=== PATIENT | female | born 1965 | race Hispanic/Latino ===

== ENCOUNTER 2018-12-03 14:20 | Emergency (ER) | payer OTHER ==
[2018-12-03] MEDS ORDERED: HYDROCODONE/APAP 10/325 TAB ONE (16:46)
--- NOTE | 2018-12-03 16:51 | RAD REPORT ---
EXAM DESCRIPTION: RAD - Shoulder Left 2 View - 12/03/2018 3:00 pm CLINICAL HISTORY: PAIN Fall, pain, trauma. COMPARISON: No comparisons FINDINGS: Lucency is seen in the superolateral aspect of the left humeral head in the region of the greater tuberosity, likely representing a nondisplaced fracture. No dislocation.
--- NOTE | 2018-12-03 17:08 | ER ---
Nurse's Notes [facility] Name: Nikki Jaramillo Age: 53 yrs Sex: Female : 1965 Arrival Date: 12/03/2018 Time: 14:22 Bed 7 Private MD: Out, [facility] Diagnosis: Nondisplaced fracture of greater tuberosity of left humerus Presentation: 12/03 14:24 Presenting complaint: Patient states: i was walking to get a pack of cigarettes and i tw2 tripped over the curb and i went down i tried to stop myself and i feel like it jammed my LEFT shoulder, my LEFT hand is numb and i cant feel anything. Transition of care: patient was not received from another setting of care. Onset of symptoms was December 03, 2018. Risk Assessment: Do you want to hurt yourself or someone else? Patient reports no desire to harm self or others. Initial Sepsis Screen: Does the patient meet any 2 criteria? No. Patient's initial sepsis screen is negative. Does the patient have a suspected source of infection? No. Patient's initial sepsis screen is negative. Care prior to arrival: None. 14:24 Method Of Arrival: Ambulatory tw2 14:24 Acuity: BOBBY 4 tw2 Triage Assessment: 14:25 General: Appears in no apparent distress. slender, unkempt, Behavior is calm, tw2 cooperative, appropriate for age. Pain: Complains of pain in left shoulder, left wrist. Musculoskeletal: Reports numbness in left arm. Injury Description: the fell and tried to catch herself and states "she jammed her shoulder". TRAY SETTER: 14:25 LMP N/A - Post-menopause tw2 Historical: - Allergies: 14:27 No Known Drug Allergies; tw2 - Home Meds: 14:27 metformin 500 mg Oral tab 1 tab 2 tabs PO QAM [Active]; potassium Oral daily [Active]; tw2 - PMHx: 14:27 Asthma; Diabetes - NIDDM; tw2 - PSHx: 14:27 ; Knee surgery; Joint replacement; Shoulder, right; tw2 - Immunization history:: Adult Immunizations. - Social history:: Smoking status: Patient uses tobacco products, smokes one pack cigarettes per day. Patient/guardian denies using alcohol, street drugs, The patient lives with family. - Ebola Screening: : Patient denies travel to an Ebola-affected area in the 21 days before illness onset. - Family history:: not pertinent. Screenin:45 Abuse screen: Denies threats or abuse. Denies injuries from another. Nutritional aj screening: No deficits noted. Tuberculosis screening: No symptoms or risk factors identified. Fall Risk Fall in past 12 months (25 points). Assessment: 14:45 General: Appears in no apparent distress. uncomfortable, obese, Behavior is calm, aj cooperative, appropriate for age, Smells of Body odor. Pain: Complains of pain in anterior aspect of left shoulder and posterior aspect of left shoulder. Neuro: Level of Consciousness is awake, alert, obeys commands, Oriented to person, place, time, situation, Appropriate for age. Respiratory: Airway is patent Respiratory effort is even, unlabored, Respiratory pattern is regular, symmetrical. Derm: Skin is intact, is healthy with good turgor, Skin is pink, warm \\T\\ dry. normal. Musculoskeletal: Reports pain in anterior aspect of left shoulder and posterior aspect of left shoulder. 16:30 Reassessment: Patient appears in no apparent distress at this time. Patient and/or jl7 family updated on plan of care and expected duration. Pain level reassessed. Patient is alert, oriented x 3, equal unlabored respirations, skin warm/dry/pink. Pt requesting pain medication, ERD notified, see MAR for orders. 17:34 Reassessment: Patient appears in no apparent distress at this time. Patient and/or jl7 family updated on plan of care and expected duration. Pain level reassessed. Patient is alert, oriented x 3, equal unlabored respirations, skin warm/dry/pink. Patient states symptoms have improved. 17:36 Reassessment: Patient appears in no apparent distress at this time. No changes from aj previously documented assessment. Patient and/or family updated on plan of care and expected duration. Pain level reassessed. Patient is alert, oriented x 3, equal unlabored respirations, skin warm/dry/pink. Vital Signs: 14:25 BP 135 / 88; Pulse 70; Resp 17; Temp 97.5(O); Pulse Ox 97% on R/A; Weight 148.32 kg tw2 (R); Height 5 ft. 3 in. (160.02 cm); Pain 9/10; 17:36 BP 138 / 75; Pulse 72; Resp 18; Pulse Ox 99% on R/A; aj 14:25 Body Mass Index 57.92 (148.32 kg, 160.02 cm) tw2 ED Course: 14:22 Patient arrived in ED. sb2 14:23 Out, [facility] is Private Physician. sb2 14:25 Triage completed. tw2 14:25 Arm band placed on. tw2 14:40 Rochelle Ma, RN is Primary Nurse. aj 14:41 Michelle Graham MD is Attending Physician. ma2 14:45 Patient has correct armband on for positive identification. Bed in low position. Adult aj w/ patient. 14:58 Patient moved to radiology via wheelchair. jb2 15:00 Shoulder Left (2 View) XRAY In Process Unspecified. EDMS 16:18 EKG done, by life support technician. reviewed by Michelle Graham MD. dt2 17:36 No provider procedures requiring assistance completed. Patient did not have IV access aj during this emergency room visit. Sling applied to left arm. Administered Medications: 16:37 Drug: [place] 10 mg-325 mg 1 tabs Route: PO; jl7 17:34 Follow up: Response: No adverse reaction; Pain is decreased jl7 Outcome: 17:08 Discharge ordered by . ma2 17:36 Discharged to home via wheelchair, with family. aj 17:36 Condition: good 17:36 Discharge instructions given to patient, family, Instructed on discharge instructions, follow up and referral plans. medication usage, Demonstrated understanding of instructions, follow-up care, medications, Prescriptions given X 1. 17:37 Patient left the ED. aj Signatures: Dispatcher [employer] EDMS Rochelle Ma, RN Eddie Patel jb2 Tamara Mendez RN RN tw2 Cosme Hernandez RN RN jl7 Michelle Graham MD MD ma2 Erika Bajwa sb2 Kavitha Fowler dt2
--- NOTE | 2018-12-03 17:08 | EDPHYS ---
Physician Documentation [facility] Name: Nikki Jaramillo Age: 53 yrs Sex: Female : 1965 Arrival Date: 12/03/2018 Time: 14:22 Bed 7 Private MD: Out, of [facility], [facility] ED Physician Michelle Graham HPI: 12/03 14:51 This 53 yrs old Female presents to ER via Ambulatory with complaints of ma2 Shoulder Injury. 14:51 The patient or guardian complains of decreased range of motion, an injury. left ma2 shoulder. Onset: The symptoms/episode began/occurred suddenly, 1 hour(s) ago. Associated signs and symptoms: Pertinent positives: severe pain, Pertinent negatives: chest pain, neck pain, tingling. Severity of symptoms: At their worst the symptoms were moderate, in the emergency department the symptoms are unchanged. AUDIT ANALYST: 14:25 LMP N/A - Post-menopause tw2 Historical: - Allergies: 14:27 No Known Drug Allergies; tw2 - Home Meds: 14:27 metformin 500 mg Oral tab 1 tab 2 tabs PO QAM [Active]; potassium Oral daily [Active]; tw2 - PMHx: 14:27 Asthma; Diabetes - NIDDM; tw2 - PSHx: 14:27 ; Knee surgery; Joint replacement; Shoulder, right; tw2 - Immunization history:: Adult Immunizations. - Social history:: Smoking status: Patient uses tobacco products, smokes one pack cigarettes per day. Patient/guardian denies using alcohol, street drugs, The patient lives with family. - Ebola Screening: : Patient denies travel to an Ebola-affected area in the 21 days before illness onset. - Family history:: not pertinent. ROS: 14:51 Constitutional: Negative for fever, chills, and weight loss, Cardiovascular: Negative ma2 for chest pain, palpitations, and edema, Respiratory: Negative for shortness of breath, cough, wheezing, and pleuritic chest pain, Abdomen/GI: Negative for abdominal pain, nausea, diarrhea, and constipation. 14:51 MS/extremity: Positive for decreased range of motion, pain, Negative for injury or acute deformity, laceration, swelling, warmth. 14:51 Neuro: Positive for Negative for dizziness, headache, seizure activity, syncope. 14:51 All other systems are negative. Exam: 14:51 Constitutional: This is a well developed, well nourished patient who is awake, alert, ma2 and in no acute distress. Neck: Trachea midline, no thyromegaly or masses palpated, and no cervical lymphadenopathy. Supple, full range of motion without nuchal rigidity, or vertebral point tenderness. No Meningismus. Chest/axilla: Normal chest wall appearance and motion. Nontender with no deformity. No lesions are appreciated. Cardiovascular: Regular rate and rhythm with a normal S1 and S2. No gallops, murmurs, or rubs. Normal PMI, no JVD. No pulse deficits. Respiratory: Lungs have equal breath sounds bilaterally, clear to auscultation and percussion. No rales, rhonchi or wheezes noted. No increased work of breathing, no retractions or nasal flaring. Abdomen/GI: Soft, non-tender, with normal bowel sounds. No distension or tympany. No guarding or rebound. No evidence of tenderness throughout. 14:51 Neuro: Awake and alert, GCS 15, oriented to person, place, time, and situation. Cranial nerves II-XII grossly intact. Motor strength 5/5 in all extremities. Sensory grossly intact. Cerebellar exam normal. Normal gait. Psych: Awake, alert, with orientation to person, place and time. Behavior, mood, and affect are within normal limits. 14:51 Musculoskeletal/extremity: ROM: limited active range of motion, left shoulder . Vital Signs: 14:25 BP 135 / 88; Pulse 70; Resp 17; Temp 97.5(O); Pulse Ox 97% on R/A; Weight 148.32 kg tw2 (R); Height 5 ft. 3 in. (160.02 cm); Pain 9/10; 17:36 BP 138 / 75; Pulse 72; Resp 18; Pulse Ox 99% on R/A; aj 14:25 Body Mass Index 57.92 (148.32 kg, 160.02 cm) tw2 MDM: 14:41 Patient medically screened. ma2 14:51 Differential diagnosis: humeral head fracture, glenoid fracture, DJD, tendonitis. ma2 14:54 ED course: declined pain control in er . ma2 17:05 Data reviewed: vital signs, nurses notes, radiologic studies. Counseling: I had a ma2 detailed discussion with the patient and/or guardian regarding: the historical points, exam findings, and any diagnostic results supporting the discharge/admit diagnosis, the presence of at least one elevated blood pressure reading (>120/80) during this emergency department visit. Response to treatment: the patient's symptoms have markedly improved after treatment. ED course: has humar non displaced fracture, no wrist drop on exam will send to ortho outpatient with a sling . 12/03 14:46 Order name: Shoulder Left (2 View) XRAY; Complete Time: 17:03 nm2 12/03 17:08 Order name: Sling; Complete Time: 17:33 [facility] Administered Medications: 16:37 Drug: [place] 10 mg-325 mg 1 tabs Route: PO; 7 17:34 Follow up: Response: No adverse reaction; Pain is decreased 7 Disposition: 12/03/18 17:08 Discharged to Home. Impression: Nondisplaced fracture of greater tuberosity of left humerus. - Condition is Stable. - Discharge Instructions: Humerus Fracture Treated With Immobilization, [id number]. - Prescriptions for Tylenol- Codeine #3 300-30 mg Oral Tablet - take 2 tablet by ORAL route every 6 hours As needed; 30 tablet. - Medication Reconciliation Form, Thank You Letter, Antibiotic Education, Prescription Opioid Use form. - Follow up: Private Physician; When: Today; Reason: Continuance of care. Signatures: Dispatcher [employer] EDRochelle Marr RN RN aj Calderon, Audri, RN RN aa5 Edwin Benton, MATI CORRECTIONAL MAINTENANCE TECHNICIAN pm1 Tamara Mendez RN RN tw2 Cosme Hernandez RN RN jl7 Michelle Graham MD MD ma2 Corrections: (The following items were deleted from the chart) 17:11 17:08 12/03/2018 17:08 Discharged to Home. Impression: 2-part displaced fracture of ma2 surgical neck of left humerus. Condition is Stable. Forms are Medication Reconciliation Form, Thank You Letter, Antibiotic Education, Prescription Opioid Use. Follow up: Private Physician; When: Today; Reason: Continuance of care. [facility] 17:37 17:11 12/03/2018 17:08 Discharged to Home. Impression: Nondisplaced fracture of greater aj tuberosity of left humerus. Condition is Stable. Discharge Instructions: Humerus Fracture Treated With Immobilization, [id number]. Prescriptions for Tylenol-Codeine #3 300-30 mg Oral Tablet - take 2 tablet by ORAL route every 6 hours As needed; 30 tablet. and Forms are Medication Reconciliation Form, Thank You Letter, Antibiotic Education, Prescription Opioid Use. Follow up: Private Physician; When: Today; Reason: Continuance of care. ma2
[2018-12-03 17:57] VITALS: TEMP 97.5
[2018-12-03 17:58] VITALS: BP 138/75; O2SAT 99
--- NOTE | 2018-12-04 06:59 | EKG ---
Test Date: 2018-12-03 Test Time: 16:03:29 Tree Worker: CHERELLE MEASUREMENT RESULTS: Intervals: Rate: 69 UT: 150 QRSD: 78 QT: 410 QTc: 439 [place]: P: 46 UT: 150 QRS: -22 T: 22 INTERPRETIVE STATEMENTS: Normal sinus rhythm nst Abnormal ECG Compared to ECG 12/29/2016 06:10:39 Sinus arrhythmia no longer present ST (T wave) deviation still present Electronically Signed On 12-04-18 06:51:[address]GE by Jose Alfredo Webster
== END 2018-12-03 17:37 | disposition home or self-care (01) ==
LOC: ER 14:20
DX: S42.255A Nondisplaced fracture of greater tuberosity of left humerus, initial encounter for closed fracture (principal); X58.XXXA Exposure to other specified factors, initial encounter; Y93.9 Activity, unspecified; Y92.9 Unspecified place or not applicable; F17.210 Nicotine dependence, cigarettes, uncomplicated
CPT/HCPCS: 93005; 99284

== ENCOUNTER 2019-03-19 18:39 | Emergency (ER) | payer OTHER ==
[2019-03-19] MEDS ORDERED: NA CHLORIDE 0.9% 1,000 ML ONE ×2 (19:28→21:23)
[2019-03-19] MEDS ORDERED: MORPHINE 4 MG/ML SYR ONE (19:28)
[2019-03-19] MEDS ORDERED: ONDANSETRON 4 MG/2 ML VIAL ONE (19:28)
[2019-03-19 19:37] LABS: Absolute Lymphocytes (CBC) 2.4 K/uL (0.7-4.9); Absolute Monocytes 0.8 K/uL (0.1-1.3); Absolute Neutrophil 16.8 K/uL (1.8-8.0); Basophils % 0.5 % (0-1.3); Eosinophils % 0.7 % (0-4.4); Hematocrit 43.2 % (36.0-45.0); Lymphocytes % 11.8 % (15.3-44.8); MPV 8.6 fL (7.6-11.3); Monocytes % 3.9 % (3.3-12.3); RBC Red Blood Cell Count 4.91 M/uL (3.86-4.86)
[2019-03-19 19:52] LABS: Albumin 2.8 g/dL (3.4-5.0); Bilirubin Direct 0.4 mg/dL (0-0.2); Bilirubin Total 2.1 mg/dL (0.2-1.0); Potassium 3.6 mmol/L (3.5-5.1); Protein, Total 6.9 g/dL (6.4-8.2)
[2019-03-19 20:08] LABS: Blood Morphology Comment NOT SEEN (NOT SEEN); Platelet Estimate ADEQ
--- NOTE | 2019-03-19 20:22 | RAD REPORT ---
EXAM DESCRIPTION: CT - Abdomen Pelvis W Contrast - 03/19/2019 8:04 pm CLINICAL HISTORY: Abdominal pain/left lower quadrant pain COMPARISON: none. TECHNIQUE: Computed axial tomography of the abdomen pelvis was obtained. 100 cc Isovue-300 was admin istered intravenously. Oral contrast was not requested which limits evaluation of bowel. All CT scans are performed using dose optimization technique as appropriate and may include automated exposure control or mA/KV adjustment according to patient size. FINDINGS: Liver is mildly enlarged. Fatty infiltration Gallstones. Gallbladder wall does not appear thickened. Spleen, pancreas, adrenal and kidneys appear unremarkable. Diverticulosis. [id number] stranding within the fat of the left pelvis. A few extraluminal ai r bubbles are present. 2 centimeter fluid-filled structure containing air is present within the anter ior left pelvis. IMPRESSION: Moderate to marked sigmoid diverticulitis. A few extraluminal air bubbles indicate a con tained perforation. 2 centimeter fluid collection within the anterior left pelvis contains air. It is uncertain if this r epresents a small abscess or unopacified small bowel.
[2019-03-19] MEDS ORDERED: METRONIDAZOLE 500mg IVPB 500 MG/100 ML BAG IV ONE (20:36)
[2019-03-19] MEDS ORDERED: Levofloxacin500mg IV 500 MG/100 ML BAG IV ONE (20:36)
--- NOTE | 2019-03-19 20:50 | EDPHYS ---
Physician Documentation [facility] Name: Nikki Jaramillo Age: 53 yrs Sex: Female : 1965 Arrival Date: 03/19/2019 Time: 18:42 Bed 30 Private MD: ED Physician Jose Ramon Infante HPI: 03/19 19:30 This 53 yrs old Female presents to ER via Wheelchair with complaints of LLQ pm1 abdominal pain and left flank pain. 19:30 The patient presents with abdominal pain in the left lower quadrant. Onset: The pm1 symptoms/episode began/occurred 2 day(s) ago. The symptoms radiate to the left flank. Associated signs and symptoms: Pertinent positives: dysuria, vomit x 1, diarrhea x 1, Pertinent negatives: blood in stools, chest pain, constipation, shortness of breath, vomiting blood. The symptoms are described as sharp. Modifying factors: The symptoms are alleviated by nothing, the symptoms are aggravated by movement. Severity of pain: in the emergency department the pain is actually worse. The patient has not recently seen a physician. EXPLOSIVES ENGINEER: 20:08 lmp unknown mg2 Historical: - Allergies: 18:45 No Known Allergies; la1 - Home Meds: 19:38 metformin 500 mg Oral tab 1 tab 2 tabs PO QAM [Active]; potassium Oral daily [Active]; mg2 - PMHx: 18:45 Asthma; Diabetes - NIDDM; COPD; Diverticulitis; la1 - PSHx: 19:38 ; mg2 - Immunization history:: Adult Immunizations up to date. - Social history:: Smoking status: Patient uses tobacco products, smokes one pack cigarettes per day. - Ebola Screening: : No symptoms or risks identified at this time. ROS: 19:30 Eyes: Negative for injury, pain, redness, and discharge, ENT: Negative for injury, pm1 pain, and discharge, Neck: Negative for injury, pain, and swelling, Cardiovascular: Negative for chest pain, palpitations, and edema, Respiratory: Negative for shortness of breath, cough, wheezing, and pleuritic chest pain. 19:30 MS/Extremity: Negative for injury and deformity, Skin: Negative for injury, rash, and discoloration, Neuro: Negative for headache, weakness, numbness, tingling, and seizure. 19:30 Constitutional: Positive for subjective fever and chills with sweating. 19:30 Abdomen/GI: Positive for abdominal pain, nausea, vomiting, and diarrhea, of the left lower quadrant, Negative for constipation. 19:30 Back: Positive for flank pain, on the left. 19:30 : Positive for flank pain, decreased urination, Negative for burning with urination. Exam: 19:30 Constitutional: This is a well developed, well nourished patient who is awake, alert, pm1 and in no acute distress. Head/Face: Normocephalic, atraumatic. Eyes: Pupils equal round and reactive to light, extra-ocular motions intact. Lids and lashes normal. Conjunctiva and sclera are non-icteric and not injected. Cornea within normal limits. Periorbital areas with no swelling, redness, or edema. ENT: Nares patent. No nasal discharge, no septal abnormalities noted. Tympanic membranes are normal and external auditory canals are clear. Oropharynx with no redness, swelling, or masses, exudates, or evidence of obstruction, uvula midline. Mucous membranes moist. Neck: Trachea midline, no thyromegaly or masses palpated, and no cervical lymphadenopathy. Supple, full range of motion without nuchal rigidity, or vertebral point tenderness. No Meningismus. Chest/axilla: Normal chest wall appearance and motion. Nontender with no deformity. No lesions are appreciated. Cardiovascular: Regular rate and rhythm with a normal S1 and S2. No gallops, murmurs, or rubs. Normal PMI, no JVD. No pulse deficits. Respiratory: Lungs have equal breath sounds bilaterally, clear to auscultation and percussion. No rales, rhonchi or wheezes noted. No increased work of breathing, no retractions or nasal flaring. 19:30 Back: No spinal tenderness. No costovertebral tenderness. Full range of motion. Skin: Warm, dry with normal turgor. Normal color with no rashes, no lesions, and no evidence of cellulitis. MS/ Extremity: Pulses equal, no cyanosis. Neurovascular intact. Full, normal range of motion. 19:30 Abdomen/GI: Inspection: obese Bowel sounds: normal, Palpation: soft, moderate abdominal tenderness, in the left lower quadrant, mass, is not appreciated, rebound tenderness, is not appreciated. 19:30 Neuro: Orientation: is normal, Motor: is normal, moves all fours, Sensation: is normal, no obvious gross deficits. Vital Signs: 18:48 Pulse 86; Resp 16; Temp 98.6(O); Pulse Ox 94% on R/A; Weight 140.61 kg; Height 5 ft. 4 la1 in. (162.56 cm); Pain 9/10; 18:48 BP 109 / 57; la1 19:30 BP 123 / 67; Pulse 88; Resp 18; Temp 98.5; Pulse Ox 96% 2 lpm ; mg2 21:43 Pulse 89; Resp 18; Temp 98.7; Pulse Ox 95% on R/A; mg2 18:48 Body Mass Index 53.21 (140.61 kg, 162.56 cm) la1 MDM: 18:53 Patient medically screened. pm1 20:44 Data reviewed: vital signs. Data interpreted: Pulse oximetry: on room air is 96 %. pm1 Interpretation: normal. Counseling: I had a detailed discussion with the patient and/or guardian regarding: the historical points, exam findings, and any diagnostic results supporting the discharge/admit diagnosis, lab results, radiology results, the need to transfer to another facility, for higher level of care, [facility] does not immediately have the required specialist. 21:12 Physician consultation: Hospitalist Bertrand was contacted at 21:12, regarding regarding pm1 transfer, patient's condition, and will see patient. 03/19 19:02 Order name: Basic Metabolic Panel; Complete Time: 19:53 pm1 03/19 19:02 Order name: CBC with Diff; Complete Time: 20:15 pm1 03/19 19:02 Order name: Creatinine for Radiology; Complete Time: 19:53 pm1 03/19 19:02 Order name: Hepatic Function; Complete Time: 19:53 pm1 03/19 19:02 Order name: Lipase; Complete Time: 19:53 pm1 03/19 19:41 Order name: Procalcitonin pm1 03/19 19:02 Order name: CT Abd/Pelvis - W/Contrast: IV contrast only; Complete Time: 20:26 pm1 03/19 19:41 Order name: Lactate pm1 03/19 19:41 Order name: Manual Differential; Complete Time: 20:15 EDMS 03/19 19:55 Order name: Blood Culture Adult (2) pm1 03/19 19:55 Order name: Urine Microscopic Only pm1 03/19 19:02 Order name: IV Saline Lock; Complete Time: 19:28 pm1 03/19 19:02 Order name: Labs collected and sent; Complete Time: 19:28 pm1 03/19 19:02 Order name: Bladder Scanner; Complete Time: 19:12 pm1 03/19 20:58 Order name: NPO; Complete Time: 21:14 pm1 Administered Medications: 19:27 Drug: Zofran 4 mg Route: IVP; Site: right forearm; mg2 21:00 Follow up: Response: No adverse reaction; Marked relief of symptoms mg2 19:28 Drug: NS 0.9% 1000 ml Route: IV; Rate: 1000 ml; Site: right forearm; mg2 19:28 Drug: morphine 4 mg Route: IVP; Site: right forearm; mg2 21:14 Drug: NS 0.9% 1000 ml Route: IV; Rate: 125 ml/hr; Site: right forearm; mg2 22:18 Follow up: Response: No adverse reaction; IV Status: Infusion continued upon transfer mg2 21:26 Drug: Flagyl 500 mg Volume: 100 ml; Route: IVPB; Rate: 200 ml/hr; Infused Over: 30 mg2 mins; Site: right forearm; 22:18 Follow up: Response: No adverse reaction; IV Status: Completed infusion mg2 21:46 Drug: LevaQUIN 500 mg Volume: 100 ml; Route: IVPB; Infused Over: 60 mins; Site: right mg2 forearm; 22:19 Follow up: Response: No adverse reaction; IV Status: Infusion continued upon transfer mg2 Disposition: 03/19/19 20:50 Transfer ordered to [facility]. Diagnosis is Diverticulitis of both small and large intestine with perforation and abscess without bleeding. - Reason for transfer: Higher level of care. - Accepting physician is [facility]. - Condition is Stable. - Problem is new. - Symptoms have improved. Signatures: Dispatcher [employer] EDMS Enio Alas RN RN la1 Edwin Benton NP STRATEGIC INSIGHTS LEAD pm1 Kassidy Gibson mw2 Greg Christianson RN RN mg2 Corrections: (The following items were deleted from the chart) 22:20 20:50 03/19/2019 20:50 Transfer ordered to [facility]. Diagnosis is mw2 Diverticulitis of both small and large intestine with perforation and abscess without bleeding. Reason for transfer: Higher level of care. Accepting physician is [facility]. Condition is Stable. Problem is new. Symptoms have improved. pm1
--- NOTE | 2019-03-19 20:50 | ER ---
Nurse's Notes [facility] Name: Nikki Jaramillo Age: 53 yrs Sex: Female : 1965 Arrival Date: 03/19/2019 Time: 18:42 Bed 30 Private MD: Diagnosis: Diverticulitis of both small and large intestine with perforation and abscess without bleeding Presentation: 03/19 18:45 Presenting complaint: Patient states: I have a pain in my left groin area that radiates la1 to my back, pain started on Sunday, also has chills, nausea, vomiting, diarrhea. Transition of care: patient was not received from another setting of care. Onset of symptoms was March 19, 2019. Risk Assessment: Do you want to hurt yourself or someone else? Patient reports no desire to harm self or others. Initial Sepsis Screen: Does the patient meet any 2 criteria? No. Patient's initial sepsis screen is negative. Does the patient have a suspected source of infection? No. Patient's initial sepsis screen is negative. Care prior to arrival: None. 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 - Social history:: Smoking status: Patient uses tobacco products, smokes one pack cigarettes per day. - Ebola Screening: : No symptoms or risks identified at this time. Screenin:32 Abuse screen: Denies threats or abuse. Denies injuries from another. Nutritional mg2 screening: No deficits noted. Tuberculosis screening: No symptoms or risk factors identified. Fall Risk IV access (20 points). Assessment: 19:29 General: Appears in no apparent distress. comfortable, Behavior is calm, cooperative. mg2 Pain: Complains of pain in abdomen Pain does not radiate. Pain currently is 9 out of 10 on a pain scale. Quality of pain is described as aching, Pain began gradually. Neuro: Level of Consciousness is awake, alert, obeys commands, Oriented to person, place, time, situation. Cardiovascular: Capillary refill < 3 seconds Patient's skin is warm and dry. Respiratory: Airway is patent Respiratory effort is even, unlabored, Respiratory pattern is regular, symmetrical. GI: Abdomen is round Reports lower abdominal pain, diarrhea, nausea, vomiting. : Reports inability to void, since sunday urinary dribbling. EENT: No signs and/or symptoms were reported regarding the EENT system. Derm: Skin is intact, is healthy with good turgor, Skin is pink, warm \T\ dry. normal. Musculoskeletal: Circulation, motion, and sensation intact. Capillary refill < 3 seconds. 20:07 Reassessment: patient sent to ct scan per stretcher. mg2 21:14 Reassessment: patient informed about the need for transfer. she agreed. mg2 21:40 Reassessment: report called to Ny Garcia RN of [facility]. transfer form signed mg2 by the patient herself. Vital Signs: 18:48 Pulse 86; Resp 16; Temp 98.6(O); Pulse Ox 94% on R/A; Weight 140.61 kg; Height 5 ft. 4 la1 in. (162.56 cm); Pain 9/10; 18:48 BP 109 / 57; la1 19:30 BP 123 / 67; Pulse 88; Resp 18; Temp 98.5; Pulse Ox 96% 2 lpm ; mg2 21:43 Pulse 89; Resp 18; Temp 98.7; Pulse Ox 95% on R/A; mg2 18:48 Body Mass Index 53.21 (140.61 kg, 162.56 cm) la1 ED Course: 18:42 Patient arrived in ED. mr 18:46 Triage completed. la1 18:46 Arm band placed on right ankle. la1 18:50 Greg Christianson, MICHELA is Primary Nurse. mg2 18:52 Edwin Benton NP is PHCP. pm1 18:53 Jose Ramon Infante MD is Attending Physician. pm1 19:29 Radiology exam delayed due to lab results not completed at this time. (BUN/Creatinine). nj 19:29 Radiology exam delayed due to IV insertion attempt and/or patient not having nj appropriate IV at this time. 19:32 No provider procedures requiring assistance completed. Inserted saline lock: 20 gauge mg2 in right forearm, using aseptic technique. Blood collected. 19:35 Patient has correct armband on for positive identification. Pulse ox on. NIBP on. Door mg2 closed. Warm blanket given. 19:40 Notified Nurse Practitioner and/or Physician Manager Assisted Living of a critical lab result(s), wbc la1 20.2. 20:04 CT Abd/Pelvis - W/Contrast: IV contrast only In Process Unspecified. EDMS 20:04 CT completed. Patient tolerated procedure well. Patient moved to MT. Patient moved back de from MT. 21:07 Inserted saline lock: 22 gauge in left forearm, using aseptic technique. lt1 22:19 Patient transferred, IV remains in place. mg2 Administered Medications: 19:27 Drug: Zofran 4 mg Route: IVP; Site: right forearm; mg2 21:00 Follow up: Response: No adverse reaction; Marked relief of symptoms mg2 19:28 Drug: NS 0.9% 1000 ml Route: IV; Rate: 1000 ml; Site: right forearm; mg2 19:28 Drug: morphine 4 mg Route: IVP; Site: right forearm; mg2 21:14 Drug: NS 0.9% 1000 ml Route: IV; Rate: 125 ml/hr; Site: right forearm; mg2 22:18 Follow up: Response: No adverse reaction; IV Status: Infusion continued upon transfer mg2 21:26 Drug: Flagyl 500 mg Volume: 100 ml; Route: IVPB; Rate: 200 ml/hr; Infused Over: 30 mg2 mins; Site: right forearm; 22:18 Follow up: Response: No adverse reaction; IV Status: Completed infusion mg2 21:46 Drug: LevaQUIN 500 mg Volume: 100 ml; Route: IVPB; Infused Over: 60 mins; Site: right mg2 forearm; 22:19 Follow up: Response: No adverse reaction; IV Status: Infusion continued upon transfer mg2 Outcome: 20:50 ER care complete, transfer ordered by . pm1 22:19 Transferred by ground EMS to [facility], Transfer form completed. mg2 22:19 Condition: stable 22:19 Instructed on the need for transfer, Demonstrated understanding of instructions. 22:20 Patient left the ED. mw2 Signatures: Dispatcher [employer] EDAshley Hernandez Lee RN RN la1 Edwin Benton, HEAD COACH HEAD COACH pm1 Alexis Dow, Kassidy mw2 Greg Christianson, RN RN mg2 Susy, Alexa lt1
[2019-03-20 04:41] VITALS: BP 123/67
[2019-03-20 04:45] VITALS: TEMP 98.7; O2SAT 95
== END 2019-03-19 22:20 | disposition short-term general hospital (02) ==
LOC: ER 18:39
DX: K57.40 Diverticulitis of both small and large intestine with perforation and abscess without bleeding (principal); E11.9 Type 2 diabetes mellitus without complications; F17.210 Nicotine dependence, cigarettes, uncomplicated
CPT/HCPCS: 87040 ×2; 85025; 80048; 36415; 80076; 83605; 83690; 84145; 74177; Q9967; J7030 ×2; J2405

== ENCOUNTER 2019-10-22 15:48 | Inpatient (IN) | payer OTHER ==
--- OUTSIDE RECORDS SUMMARY | 2019-10-22 15:50 | XMS REPORT ---
:1965 [facility] [address] [place] [id number] Care Team Providers Name Role Phone AMILCAR LESLIE Unavailable Unavailable Problems This patient has no known problems. Allergies, Adverse Reactions, Alerts This patient has no known allergies or adverse reactions. Medications This patient has no known medications. Results Test Description Test Time Test Comments Text Results Atomic Results Result Comments BLOOD CULTURE 2019-03-25 08:01:00 Test Item Value Reference Range Comments CULTURE (BEAKER) (test vsbu=1204) No growth in 5 days BLOOD [id number] 08:01:00 Test Item Value Reference Range Comments CULTURE (BEAKER) (test leuh=0165) No growth in 5 days POCT-GLUCOSE [id number] 08:21:00 Test Item Value Reference Range Comments POC-GLUCOSE METER (BEAKER) 193 mg/dL 70-110 TESTED AT [address] (test wdou=7626) [facility] [address] POCT-GLUCOSE [id number] 22:28:00 Test Item Value Reference Range Comments POC-GLUCOSE METER (BEAKER) 134 mg/dL 70-110 TESTED AT [address] (test pkme=9548) [facility] [address] POCT-GLUCOSE [id number] 17:09:00 Test Item Value Reference Range Comments POC-GLUCOSE METER (BEAKER) 109 mg/dL 70-110 TESTED AT [address] (test aupm=0119) [place] [id number] POCT-GLUCOSE [id number] 12:54:00 Test Item Value Reference Range Comments POC-GLUCOSE METER (BEAKER) 98 mg/dL 70-110 TESTED AT [address] (test fyrr=7122) [place] [address] CBC (HEMOGRAM ONLY)2019-03-23 05:37:00 Test Item Value Reference Range Comments WHITE BLOOD CELL COUNT (BEAKER) (test oreb=442) 10.5 K/ L 3.5-10.5 RED BLOOD CELL COUNT (BEAKER) (test nhis=818) 4.26 M/ L 3.93-5.22 HEMOGLOBIN (BEAKER) (test ofou=929) 12.1 GM/DL 11.2-15.7 HEMATOCRIT (BEAKER) (test lnam=828) 38.7 % 34.1-44.9 MEAN CORPUSCULAR VOLUME (BEAKER) (test gpnr=382) 90.8 fL 79.4-94.8 MEAN CORPUSCULAR HEMOGLOBIN (BEAKER) (test 28.4 pg 25.6-32.2 zlbc=685) MEAN CORPUSCULAR HEMOGLOBIN CONC (BEAKER) (test 31.3 GM/DL 32.2-35.5 bkdo=991) RED CELL DISTRIBUTION WIDTH (BEAKER) (test 14.5 % 11.7-14.4 odec=879) PLATELET COUNT (BEAKER) (test llyi=195) 339 K/CU MM 150-450 MEAN PLATELET VOLUME (BEAKER) (test wvun=799) 9.8 fL 9.4-12.3 NUCLEATED RED BLOOD CELLS (BEAKER) (test 0 /100 WBC 0-0 zlou=529) POCT-GLUCOSE [id number] 22:36:00 Test Item Value Reference Range Comments POC-GLUCOSE METER (BEAKER) 102 mg/dL 70-110 TESTED AT [address] (test bmlp=2557) [facility] [address] POCT-GLUCOSE [id number] 18:00:00 Test Item Value Reference Range Comments POC-GLUCOSE METER (BEAKER) 101 mg/dL 70-110 TESTED AT [address] (test cpwa=6637) [facility] [address] POCT-GLUCOSE [id number] 12:35:00 Test Item Value Reference Range Comments POC-GLUCOSE METER (BEAKER) 98 mg/dL 70-110 TESTED AT [address] (test rhnd=5709) [facility] [address] POCT-GLUCOSE [id number] 06:05:00 Test Item Value Reference Range Comments POC-GLUCOSE METER (BEAKER) 116 mg/dL 70-110 TESTED AT [address] (test linv=6881) [place] [address] CBC W/PLT COUNT & AUTO [id number] 05:36:00 Test Item Value Reference Range Comments WHITE BLOOD CELL COUNT (BEAKER) (test hphm=138) 11.1 K/ L 3.5-10.5 RED BLOOD CELL COUNT (BEAKER) (test gpnh=156) 4.43 M/ L 3.93-5.22 HEMOGLOBIN (BEAKER) (test anum=035) 12.7 GM/DL 11.2-15.7 HEMATOCRIT (BEAKER) (test cuvq=929) 40.7 % 34.1-44.9 MEAN CORPUSCULAR VOLUME (BEAKER) (test soue=152) 91.9 fL 79.4-94.8 MEAN CORPUSCULAR HEMOGLOBIN (BEAKER) (test 28.7 pg 25.6-32.2 ugdy=229) MEAN CORPUSCULAR HEMOGLOBIN CONC (BEAKER) (test 31.2 GM/DL 32.2-35.5 hobn=020) RED CELL DISTRIBUTION WIDTH (BEAKER) (test 14.3 % 11.7-14.4 cjri=230) PLATELET COUNT (BEAKER) (test rjop=472) 329 K/CU MM 150-450 MEAN PLATELET VOLUME (BEAKER) (test ocjq=396) 10.0 fL 9.4-12.3 NUCLEATED RED BLOOD CELLS (BEAKER) (test 0 /100 WBC 0-0 bjui=315) NEUTROPHILS RELATIVE PERCENT (BEAKER) (test 73 % nite=906) LYMPHOCYTES RELATIVE PERCENT (BEAKER) (test 17 % beiy=063) MONOCYTES RELATIVE PERCENT (BEAKER) (test 5 % qlfj=126) EOSINOPHILS RELATIVE PERCENT (BEAKER) (test 3 % rnhk=452) BASOPHILS RELATIVE PERCENT (BEAKER) (test 1 % bxlr=792) NEUTROPHILS ABSOLUTE COUNT (BEAKER) (test 8.03 K/ L 1.56-6.13 lkmg=855) LYMPHOCYTES ABSOLUTE COUNT (BEAKER) (test 1.84 K/ L 1.18-3.74 gdgl=583) MONOCYTES ABSOLUTE COUNT (BEAKER) (test 0.59 K/ L 0.24-0.36 ewnh=621) EOSINOPHILS ABSOLUTE COUNT (BEAKER) (test 0.36 K/ L 0.04-0.36 rjzy=858) BASOPHILS ABSOLUTE COUNT (BEAKER) (test 0.06 K/ L 0.01-0.08 ozzt=139) IMMATURE GRANULOCYTES-RELATIVE PERCENT (BEAKER) 2 % 0-1 (test umsh=3581) [id number] 05:35:00 Test Item Value Reference Range Comments PHOSPHORUS (BEAKER) (test bgpg=670) 2.5 mg/dL 2.3-4.7 [id number] 05:35:00 Test Item Value Reference Range Comments MAGNESIUM (BEAKER) (test qstj=137) 1.7 mg/dL 1.6-2.6 BASIC METABOLIC [id number] 05:35:00 Test Item Value Reference Range Comments SODIUM (BEAKER) (test 138 meq/L 136-145 phab=110) POTASSIUM (BEAKER) (test 3.7 meq/L 3.5-5.1 sohe=919) CHLORIDE (BEAKER) (test 105 meq/L 98-107 puth=504) CO2 (BEAKER) (test 24 meq/L 22-29 kdbm=329) BLOOD UREA NITROGEN 4 mg/dL 7-21 (BEAKER) (test eekn=287) CREATININE (BEAKER) (test 0.70 mg/dL 0.57-1.25 vlse=853) GLUCOSE RANDOM (BEAKER) 108 mg/dL 70-105 (test gxsz=422) CALCIUM (BEAKER) (test 8.9 mg/dL 8.4-10.2 hctn=103) EGFR (BEAKER) (test 87 mL/min/1.73 sq m ESTIMATED GFR IS NOT owhs=0606) ACCURATE CREATININE CLEARANCE IN PREDICTING GLOMERULAR FILTRATION RATE. ESTIMATED GFR IS NOT APPLICABLE FOR DIALYSIS PATIENTS. POCT-GLUCOSE [id number] 00:38:00 Test Item Value Reference Range Comments POC-GLUCOSE METER (BEAKER) 106 mg/dL 70-110 TESTED AT [address] (test rdrp=5128) [facility] [address] POCT-GLUCOSE [id number] 17:29:00 Test Item Value Reference Range Comments POC-GLUCOSE METER (BEAKER) 108 mg/dL 70-110 TESTED AT [address] (test mdlb=4205) [facility] [address] POCT-GLUCOSE [id number] 12:50:00 Test Item Value Reference Range Comments POC-GLUCOSE METER (BEAKER) 120 mg/dL 70-110 TESTED AT [facility] [address] [facility] (test uxkc=2394) [facility] [address] POCT-GLUCOSE [id number] 05:37:00 Test Item Value Reference Range Comments POC-GLUCOSE METER (BEAKER) 134 mg/dL 70-110 TESTED AT [facility] [address] [facility] (test dbju=4425) [facility] [address] [id number] 03:52:00 Test Item Value Reference Range Comments PHOSPHORUS (BEAKER) (test zwwq=787) 3.1 mg/dL 2.3-4.7 [id number] 03:52:00 Test Item Value Reference Range Comments MAGNESIUM (BEAKER) (test kzzs=708) 1.5 mg/dL 1.6-2.6 BASIC METABOLIC [id number] 03:52:00 Test Item Value Reference Range Comments SODIUM (BEAKER) (test 139 meq/L 136-145 ezso=500) POTASSIUM (BEAKER) (test 3.7 meq/L 3.5-5.1 udqz=647) CHLORIDE (BEAKER) (test 106 meq/L 98-107 tcrx=138) CO2 (BEAKER) (test 27 meq/L 22-29 blhh=671) BLOOD UREA NITROGEN 4 mg/dL 7-21 (BEAKER) (test gfpw=093) CREATININE (BEAKER) (test 0.69 mg/dL 0.57-1.25 rkgs=717) GLUCOSE RANDOM (BEAKER) 126 mg/dL 70-105 (test qqui=109) CALCIUM (BEAKER) (test 9.2 mg/dL 8.4-10.2 hvvy=449) EGFR (BEAKER) (test 88 mL/min/1.73 sq m ESTIMATED GFR IS NOT vkwq=7851) ACCURATE CREATININE CLEARANCE IN PREDICTING GLOMERULAR FILTRATION RATE. ESTIMATED GFR IS NOT APPLICABLE FOR DIALYSIS PATIENTS. CBC W/PLT COUNT & AUTO [id number] 03:41:00 Test Item Value Reference Range Comments WHITE BLOOD CELL COUNT (BEAKER) (test swzd=531) 13.3 K/ L 3.5-10.5 RED BLOOD CELL COUNT (BEAKER) (test bpdu=141) 4.37 M/ L 3.93-5.22 HEMOGLOBIN (BEAKER) (test cvia=586) 12.7 GM/DL 11.2-15.7 HEMATOCRIT (BEAKER) (test vfuy=376) 40.8 % 34.1-44.9 MEAN CORPUSCULAR VOLUME (BEAKER) (test pxyc=976) 93.4 fL 79.4-94.8 MEAN CORPUSCULAR HEMOGLOBIN (BEAKER) (test 29.1 pg 25.6-32.2 ovlp=627) MEAN CORPUSCULAR HEMOGLOBIN CONC (BEAKER) (test 31.1 GM/DL 32.2-35.5 yxjm=052) RED CELL DISTRIBUTION WIDTH (BEAKER) (test 14.4 % 11.7-14.4 neyb=489) PLATELET COUNT (BEAKER) (test shoe=107) 272 K/CU MM 150-450 MEAN PLATELET VOLUME (BEAKER) (test odkh=958) 10.0 fL 9.4-12.3 NUCLEATED RED BLOOD CELLS (BEAKER) (test 0 /100 WBC 0-0 hiff=566) NEUTROPHILS RELATIVE PERCENT (BEAKER) (test 76 % rzcv=601) LYMPHOCYTES RELATIVE PERCENT (BEAKER) (test 15 % bnkj=917) MONOCYTES RELATIVE PERCENT (BEAKER) (test 5 % cwlx=234) EOSINOPHILS RELATIVE PERCENT (BEAKER) (test 2 % oayu=273) BASOPHILS RELATIVE PERCENT (BEAKER) (test 1 % kahg=885) NEUTROPHILS ABSOLUTE COUNT (BEAKER) (test 10.14 K/ L 1.56-6.13 gwxb=143) LYMPHOCYTES ABSOLUTE COUNT (BEAKER) (test 1.96 K/ L 1.18-3.74 rpnv=307) MONOCYTES ABSOLUTE COUNT (BEAKER) (test 0.62 K/ L 0.24-0.36 hyix=244) EOSINOPHILS ABSOLUTE COUNT (BEAKER) (test 0.29 K/ L 0.04-0.36 jbfs=705) BASOPHILS ABSOLUTE COUNT (BEAKER) (test 0.06 K/ L 0.01-0.08 xssj=541) IMMATURE GRANULOCYTES-RELATIVE PERCENT (BEAKER) 2 % 0-1 (test wgzx=0170) POCT-GLUCOSE [id number] 23:23:00 Test Item Value Reference Range Comments POC-GLUCOSE METER (BEAKER) 114 mg/dL 70-110 TESTED AT [address] (test ldxu=5580) [facility] [address] POCT-GLUCOSE [id number] 18:36:00 Test Item Value Reference Range Comments POC-GLUCOSE METER (BEAKER) 120 mg/dL 70-110 TESTED AT [address] (test rdkg=3530) [place] [id number] POCT-GLUCOSE [id number] 12:40:00 Test Item Value Reference Range Comments POC-GLUCOSE METER (BEAKER) 129 mg/dL 70-110 TESTED AT [address] (test smop=5868) [place] [id number] HEMOGLOBIN [id number] 09:37:00 Test Item Value Reference Range Comments HEMOGLOBIN A1C (BEAKER) (test pvyb=979) 6.2 % 4.3-6.1 TSH/FREE T4 IF [id number] 03:15:00 Test Item Value Reference Range Comments THYROID STIMULATING HORMONE (BEAKER) (test 1.19 uIU/mL 0.35-4.94 hmyr=813) C-REACTIVE [id number] 03:14:00 Test Item Value Reference Range Comments C-REACTIVE PROTEIN (BEAKER) (test rwuf=896) 24.16 mg/dL 0.00-0.50 TROPONIN [id number] 02:52:00 Test Item Value Reference Range Comments TROPONIN I (BEAKER) (test sujh=473) < ng/mL 0.00-0.03 Troponin I (TnI) levels must be interpreted in the context of the presenting symptoms and the clinical findings. Elevated TnI levels indicate myocardial damage, but are not specific for ischemic heart disease. Elevated TnI levels are seen in patients with other cardiac conditions (including myocarditis and congestive heart failure), and slight TnI elevations occur in patients with other conditions, including sepsis, renal failure, acidosis, acute neurological disease, and persistent tachyarrhythmia.B-TYPE NATRIURETIC FACTOR (BNP) 02:52:00 Test Item Value Reference Range Comments B-TYPE NATRIURETIC PEPTIDE (BEAKER) (test oocx=050) 16 pg/mL 0-100 [id number] 02:43:00 Test Item Value Reference Range Comments PHOSPHORUS (BEAKER) (test mwmt=299) 3.0 mg/dL 2.3-4.7 [id number] 02:43:00 Test Item Value Reference Range Comments MAGNESIUM (BEAKER) (test pixx=654) 1.4 mg/dL 1.6-2.6 BASIC METABOLIC [id number] 02:43:00 Test Item Value Reference Range Comments SODIUM (BEAKER) (test 137 meq/L 136-145 vpse=436) POTASSIUM (BEAKER) (test 3.6 meq/L 3.5-5.1 nnlc=029) CHLORIDE (BEAKER) (test 105 meq/L 98-107 pgxq=582) CO2 (BEAKER) (test 25 meq/L 22-29 ndjq=309) BLOOD UREA NITROGEN 6 mg/dL 7-21 (BEAKER) (test utkk=451) CREATININE (BEAKER) (test 0.83 mg/dL 0.57-1.25 goxp=038) GLUCOSE RANDOM (BEAKER) 139 mg/dL 70-105 (test jvph=703) CALCIUM (BEAKER) (test 9.1 mg/dL 8.4-10.2 jekh=638) EGFR (BEAKER) (test 71 mL/min/1.73 sq m ESTIMATED GFR IS NOT ndro=0006) ACCURATE CREATININE CLEARANCE IN PREDICTING GLOMERULAR FILTRATION RATE. ESTIMATED GFR IS NOT APPLICABLE FOR DIALYSIS PATIENTS. LIPID [id number] 02:43:00 Test Item Value Reference Range Comments TRIGLYCERIDES (BEAKER) (test xttz=346) 76 mg/dL CHOLESTEROL (BEAKER) (test wpob=297) 77 mg/dL HDL CHOLESTEROL (BEAKER) (test xwsa=197) 40 mg/dL LDL CHOLESTEROL CALCULATED (BEAKER) (test wtdd=569) 22 mg/dL Triglyceride Reference Range: Low Risk <150 Borderline 150- 199 High Risk 200-499 Very High Risk >=500Cholesterol Reference Range: Low Risk <200 Borderline 200-239 High Risk > 240HDL Cholesterol Reference Range: Low Risk >=60 High Risk <40LDL Cholesterol Reference Range: Optimal <100 Near Optimal 100-129 Borderline 130-159 High 160-189 Very High >=190HEPATIC FUNCTION [id number] 02:43:00 Test Item Value Reference Range Comments TOTAL PROTEIN (BEAKER) (test iold=444) 6.5 gm/dL 6.0-8.3 ALBUMIN (BEAKER) (test ofjm=2197) 3.4 g/dL 3.5-5.0 BILIRUBIN TOTAL (BEAKER) (test hjzy=686) 2.2 mg/dL 0.2-1.2 BILIRUBIN DIRECT (BEAKER) (test qtwo=676) 0.8 mg/dL 0.1-0.5 ALKALINE PHOSPHATASE (BEAKER) (test bnmq=939) 101 U/L 40-150 AST (SGOT) (BEAKER) (test zsch=655) 9 U/L 5-34 ALT (SGPT) (BEAKER) (test hpow=357) 13 U/L 6-55 CREATINE KINASE (CK)2019-03-20 02:43:00 Test Item Value Reference Range Comments CREATINE KINASE TOTAL (BEAKER) (test ygxw=651) 22 U/L 29-200 CBC W/PLT COUNT & AUTO [id number] 02:24:00 Test Item Value Reference Range Comments WHITE BLOOD CELL COUNT (BEAKER) (test mloy=656) 18.2 K/ L 3.5-10.5 RED BLOOD CELL COUNT (BEAKER) (test nabh=200) 4.59 M/ L 3.93-5.22 HEMOGLOBIN (BEAKER) (test brai=733) 13.5 GM/DL 11.2-15.7 HEMATOCRIT (BEAKER) (test mxoi=114) 42.8 % 34.1-44.9 MEAN CORPUSCULAR VOLUME (BEAKER) (test psti=028) 93.2 fL 79.4-94.8 MEAN CORPUSCULAR HEMOGLOBIN (BEAKER) (test 29.4 pg 25.6-32.2 thqj=965) MEAN CORPUSCULAR HEMOGLOBIN CONC (BEAKER) (test 31.5 GM/DL 32.2-35.5 hixb=929) RED CELL DISTRIBUTION WIDTH (BEAKER) (test 14.7 % 11.7-14.4 dlyd=216) PLATELET COUNT (BEAKER) (test qshg=097) 263 K/CU MM 150-450 MEAN PLATELET VOLUME (BEAKER) (test cevf=567) 10.0 fL 9.4-12.3 NUCLEATED RED BLOOD CELLS (BEAKER) (test 0 /100 WBC 0-0 qcvz=951) NEUTROPHILS RELATIVE PERCENT (BEAKER) (test 82 % nmdw=930) LYMPHOCYTES RELATIVE PERCENT (BEAKER) (test 11 % hdlu=166) MONOCYTES RELATIVE PERCENT (BEAKER) (test 4 % mgww=399) EOSINOPHILS RELATIVE PERCENT (BEAKER) (test 1 % gjzd=882) BASOPHILS RELATIVE PERCENT (BEAKER) (test 0 % mzar=450) NEUTROPHILS ABSOLUTE COUNT (BEAKER) (test 14.82 K/ L 1.56-6.13 mkyz=086) LYMPHOCYTES ABSOLUTE COUNT (BEAKER) (test 2.03 K/ L 1.18-3.74 xzyl=079) MONOCYTES ABSOLUTE COUNT (BEAKER) (test 0.80 K/ L 0.24-0.36 tydp=927) EOSINOPHILS ABSOLUTE COUNT (BEAKER) (test 0.12 K/ L 0.04-0.36 nfhx=128) BASOPHILS ABSOLUTE COUNT (BEAKER) (test 0.06 K/ L 0.01-0.08 gvvu=385) IMMATURE GRANULOCYTES-RELATIVE PERCENT (BEAKER) 2 % 0-1 (test bius=3817) POCT-GLUCOSE [id number] 01:09:00 Test Item Value Reference Range Comments POC-GLUCOSE METER (BEAKER) 147 mg/dL 70-110 TESTED AT [facility] [address] (test ksrx=4491) [facility] [id number]
[2019-10-22] MEDS ORDERED: ONDANSETRON 4 MG/2 ML VIAL ONE ×2 (16:05→21:28)
[2019-10-22] MEDS ORDERED: MORPHINE 4 MG/ML SYR ONE ×2 (16:05→20:28)
[2019-10-22 16:57] LABS: Absolute Lymphocytes (CBC) 1.7 K/uL (0.7-4.9); Basophils % 0.3 % (0-1.3); Lymphocytes % 9.9 % (15.3-44.8); MPV 8.3 fL (7.6-11.3)
[2019-10-22 17:19] LABS: Albumin 3.6 g/dL (3.4-5.0); Bilirubin Direct 0.1 mg/dL (0-0.2); Bilirubin Total 0.7 mg/dL (0.2-1.0); Potassium 4.2 mmol/L (3.5-5.1); Protein, Total 7.2 g/dL (6.4-8.2)
[2019-10-22 17:23] LABS: Blood Morphology Comment NOT SEEN (NOT SEEN); Platelet Estimate ADEQ; Urine White Blood Cell Casts OK
--- NOTE | 2019-10-22 19:02 | RAD REPORT ---
EXAM DESCRIPTION: CT - Abdomen Pelvis W Contrast - 10/22/2019 5:45 pm CLINICAL HISTORY: ABD PAIN, left lower quadrant pain COMPARISON: CT study March 2019 TECHNIQUE: Biphasic, helical CT imaging of the abdomen and pelvis was performed following 100 ml non -ionic IV contrast. No oral contrast. All CT scans are performed using dose optimization technique as appropriate and may include automated exposure control or mA/KV adjustment according to patient size. FINDINGS: No suspicious findings in the lung bases. Liver shows a diffuse fatty infiltration pattern. No focal liver lesions seen. Spleen and pancreas sh ow no suspicious findings. Multiple large gallstones are present as previously detailed. No acute gal lbladder finding. No biliary tree dilatation. Are Symmetric renal function is seen with no hydronephrosis or suspicious renal mass. No pyelonephritis o r acute parenchymal process. No bladder abnormalities. No adrenal abnormalities. Uterus and ovaries s how no suspicious findings. No stomach or small bowel abnormality. Appendicitis is not suspected. Proximal sigmoid colon shows wa ll thickening with stranding in the adjacent fat. Numerous diverticula seen. Small focus of linear st randing seen between the sigmoid colon and small bowel. This is an area of prior extensive inflammato ry change. An entero entero fistula is possible. Trace amount of free fluid is seen. No abscesses id entified. No hernia, mass or bulky lymphadenopathy. No suspicious bony findings. IMPRESSION: Mild acute sigmoid diverticulitis is present. This is same region previously subjected t o a more pronounced diverticulitis. No abscess is present. A small amount of free fluid and stranding present. Stranding is present between the sigmoid colon and adjacent small bowel. This is probably scarring ra ther than entero entero fistula. Fatty infiltration of the liver. Multi stone cholelithiasis as previously detailed.
[2019-10-22] MEDS ORDERED: CIPROFLOXACIN 400mg IV 400 MG/200 ML BAG IV ONE (20:05)
[2019-10-22] MEDS ORDERED: METRONIDAZOLE 500mg IVPB 500 MG/100 ML BAG IV ONE (20:05)
[2019-10-22] MEDS ORDERED: NA CHLORIDE 0.9% 500 ML ONE (20:05)
--- NOTE | 2019-10-22 20:10 | EDPHYS ---
Physician Documentation [facility] Name: Nikki Jaramillo Age: 54 yrs Sex: Female : 1965 Arrival Date: 10/22/2019 Time: 15:55 Bed 28 Private MD: ED Physician Tip Mcintyre HPI: 10/22 16:02 This 54 yrs old Female presents to ER via EMS with complaints of abdominal la1 pain/nausea. 16:02 The patient presents with abdominal pain. Onset: The symptoms/episode began/occurred la1 this morning. The symptoms do not radiate. Associated signs and symptoms: none. The symptoms are described as sharp. Modifying factors: The symptoms are alleviated by nothing. Severity of pain: At its worst the pain was moderate. The patient has experienced a previous episode, approximately 5 months ago. The patient has not recently seen a physician. onset of lower abd pain and nausea earlier this morning, states she has had diverticulitis in the past and this pain feels similar. Historical: - Allergies: 16:00 No Known Allergies; rv - Home Meds: 16:00 metformin 500 mg Oral tab 1 tab 2 tabs PO QAM [Active]; potassium Oral daily [Active]; rv meloxicam oral oral [Active]; rosuvastatin oral oral [Active]; - PMHx: 16:00 Asthma; COPD; Diabetes - NIDDM; Diverticulitis; rv - PSHx: 16:00 ; Knee surgery; shoulder surgery; rv - Immunization history:: Adult Immunizations up to date. - Social history:: Smoking status: Patient/guardian denies using tobacco. - Ebola Screening: : No symptoms or risks identified at this time. ROS: 16:05 Constitutional: Negative for fever, chills, and weight loss, Eyes: Negative for injury, la1 pain, redness, and discharge, ENT: Negative for injury, pain, and discharge, Neck: Negative for injury, pain, and swelling, Cardiovascular: Negative for chest pain, palpitations, and edema, Respiratory: Negative for shortness of breath, cough, wheezing, and pleuritic chest pain. 16:05 Back: Negative for injury and pain, : Negative for injury, bleeding, discharge, and swelling, MS/Extremity: Negative for injury and deformity, Neuro: Negative for headache, weakness, numbness, tingling, and seizure. 16:05 Abdomen/GI: Positive for abdominal pain, nausea, Negative for vomiting, diarrhea, constipation, black/tarry stool, rectal pain, rectal bleeding, bowel incontinence. Exam: 16:05 Constitutional: This is a well developed, well nourished patient who is awake, alert, la1 and in no acute distress. Head/Face: Normocephalic, atraumatic. ENT: Mucous membranes moist. Chest/axilla: Normal chest wall appearance and motion. Nontender with no deformity. No lesions are appreciated. Cardiovascular: Regular rate and rhythm with a normal S1 and S2. No gallops, murmurs, or rubs. Normal PMI, no JVD. No pulse deficits. Respiratory: Lungs have equal breath sounds bilaterally, clear to auscultation . No rales, rhonchi or wheezes noted. No increased work of breathing, no retractions or nasal flaring. 16:05 Abdomen/GI: Inspection: obese Bowel sounds: normal, in all quadrants, Palpation: soft, in all quadrants, moderate abdominal tenderness, in the suprapubic area, right lower quadrant and left lower quadrant, Indicators: McBurney's point is not tender, Das's sign is negative, Rovsing's sign is negative, Obturator sign is negative, Psoas sign is negative. 16:05 Back: CVA tenderness, is absent, vertebral tenderness, is not appreciated. Vital Signs: 15:57 BP 112 / 63; Pulse 86; Resp 19; Temp 98.3; Pulse Ox 94% on R/A; Weight 140.61 kg; rv Height 5 ft. 3 in. (160.02 cm); Pain 4/10; 17:09 Pain 0/10; rv 17:10 BP 121 / 59; Pulse 84; Resp 18; Pulse Ox 94% on R/A; rv 18:00 BP 124 / 61; Pulse 79; Resp 16; Pulse Ox 96% on R/A; rv 19:00 BP 118 / 66; Pulse 84; Resp 17; Pulse Ox 95% on R/A; rv 20:00 BP 123 / 60; Pulse 81; Resp 18; Pulse Ox 95% on R/A; rv 21:00 BP 119 / 58; Pulse 76; Resp 16; Pulse Ox 96% ; rv 15:57 Body Mass Index 54.91 (140.61 kg, 160.02 cm) rv MDM: 15:55 Patient medically screened. la1 20:07 Data reviewed: vital signs, nurses notes, lab test result(s), radiologic studies, I la1 have discussed the patient's presentation/case with the attending Emergency Department Physician; and as a result, I will admit patient. Data interpreted: Pulse oximetry: on room air is 95 %. Interpretation: normal. Counseling: I had a detailed discussion with the patient and/or guardian regarding: the historical points, exam findings, and any diagnostic results supporting the discharge/admit diagnosis, lab results, radiology results, the need for further work-up and treatment in the hospital. Medication response: morphine markedly relieved the patient's pain. Symptoms have improved. Physician consultation: Michelle Tavera MD was called at 20:08, was contacted at 20:08, regarding admission, and will see patient. 10/22 16:00 Order name: Basic Metabolic Panel; Complete Time: 17:28 la1 10/22 16:00 Order name: CBC with Diff; Complete Time: 17:28 la1 10/22 16:00 Order name: Creatinine for Radiology; Complete Time: 17:28 la1 10/22 16:00 Order name: Hepatic Function; Complete Time: 17:28 la1 10/22 16:00 Order name: Lipase; Complete Time: 17:28 la1 10/22 17:01 Order name: CBC Smear Scan; Complete Time: 17:28 EDNJ 10/22 20:48 Order name: Urinalysis EDNJ 10/22 20:49 Order name: CBC with Automated Diff EDNJ 10/22 20:49 Order name: CBC with Automated Diff EDNJ 10/22 20:49 Order name: Comprehensive Metabolic Panel EDNJ 10/22 20:49 Order name: Comprehensive Metabolic Panel EDNJ 10/22 20:49 Order name: Magnesium EDNJ 10/22 20:49 Order name: Magnesium EDNJ 10/22 20:49 Order name: Procalcitonin EDNJ 10/22 16:00 Order name: IV Saline Lock; Complete Time: 16:17 la1 10/22 16:00 Order name: Labs collected and sent; Complete Time: 16:38 la1 10/22 16:01 Order name: CT Abd/Pelvis - IV Contrast Only; Complete Time: 19:12 la1 10/22 20:48 Order name: NPO EDMS 10/22 20:49 Order name: Procalcitonin EDMS 10/22 20:49 Order name: Phosphorus EDMS 10/22 20:49 Order name: Phosphorus EDMS Administered Medications: 16:00 Drug: NS 0.9% 500 ml Route: IV; Rate: bolus; Site: left forearm; rv 17:09 Follow up: IV Status: Completed infusion; IV Intake: 500ml rv 16:08 Drug: Zofran 4 mg Route: IVP; Site: left forearm; rv 17:09 Follow up: Response: No adverse reaction rv 16:10 Drug: morphine 4 mg {Note: rass 0.} Route: IVP; Site: left forearm; rv 17:09 Follow up: Pain 0/10 Adult; Response: No adverse reaction; Marked relief of symptoms; rv Pain is decreased; RASS: Alert and Calm (0) 20:10 Drug: Cipro 400 mg Volume: 200 ml; Route: IVPB; Infused Over: 60 mins; Site: left rv femoral; 21:38 Follow up: IV Status: Completed infusion; IV Intake: 100ml rv 20:10 Drug: Flagyl 500 mg Volume: 100 ml; Route: IVPB; Rate: 200 ml/hr; Infused Over: 30 rv mins; Site: left forearm; 21:38 Follow up: IV Status: Completed infusion; IV Intake: 200ml rv 20:45 Drug: morphine 4 mg Route: IVP; Site: left forearm; rv 21:39 Follow up: Response: RASS: Alert and Calm (0) rv 21:25 Drug: Zofran 4 mg Route: IVP; Site: left forearm; rv 21:38 Follow up: Response: No adverse reaction rv Disposition: 10/23 20:57 Co-signature as Attending Physician, Tip Mcintyre MD I agree with the assessment and kdr plan of care. Disposition: 10/22/19 20:09 Hospitalization ordered by Michelle Tavera for Observation. Preliminary diagnosis is Diverticulitis of large intestine without perforation or abscess without bleeding. - Bed requested for Telemetry/MedSurg (observation). - Status is Observation. rv - Condition is Stable. - Problem is new. - Symptoms have improved. UTI on Admission? No Signatures: Dispatcher [employer] [facility] Tip Mcintyre MD MD kdr Attema, Lee, FNP-C ACADEMIC SUPPORT COORDINATOR-Cla1 Lubna Cline, RN RN tl1 Jorje Chavez, RN RN rv Corrections: (The following items were deleted from the chart) 10/22 20:06 19:30 Fluid Challenge ordered. la1 la1 20:10 20:09 Hospitalization Ordered by Michelle Tavera MD for Observation. Preliminary la1 diagnosis is Diverticulitis of large intestine without perforation or abscess without bleeding. Bed requested for Telemetry/MedSurg (observation). Status is Observation. Condition is Stable. Problem is new. Symptoms have improved. UTI on Admission? No. la1 20:50 20:10 10/22/2019 20:09 Hospitalization Ordered by Michelle Tavera MD for Observation. tl1 Preliminary diagnosis is Diverticulitis of large intestine without perforation or abscess without bleeding. Bed requested for Telemetry/MedSurg (observation). Status is Observation. Condition is Stable. Problem is new. Symptoms have improved. UTI on Admission? No. la1 21:42 20:50 10/22/2019 20:09 Hospitalization Ordered by Michelle Tavera MD for Observation. rv Preliminary diagnosis is Diverticulitis of large intestine without perforation or abscess without bleeding. Bed requested for Telemetry/MedSurg (observation). Status is Observation. Condition is Stable. Problem is new. Symptoms have improved. UTI on Admission? No. tl1
--- NOTE | 2019-10-22 20:10 | ER ---
Nurse's Notes [facility] Name: Nikki Jaramillo Age: 54 yrs Sex: Female : 1965 Arrival Date: 10/22/2019 Time: 15:55 Bed 28 Private MD: Diagnosis: Diverticulitis of large intestine without perforation or abscess without bleeding Presentation: 10/22 15:55 Presenting complaint: EMS states: patient call in for severe abdominal pain, rv generalized but mostly tender on the LLQ. complaining of 8/10 pain initially, given Fentanyl 75mcg and Zofran 4mg thru IV. pain down to 4/10 now. Transition of care: patient was not received from another setting of care. Onset of symptoms was October 22, 2019 at 15:00. Risk Assessment: Do you want to hurt yourself or someone else? Patient reports no desire to harm self or others. Initial Sepsis Screen: Does the patient meet any 2 criteria? No. Patient's initial sepsis screen is negative. Does the patient have a suspected source of infection? No. Patient's initial sepsis screen is negative. Care prior to arrival: None. 15:55 Method Of Arrival: EMS: [facility] rv 15:55 Acuity: BOBBY 3 rv Historical: - Allergies: 16:00 No Known Allergies; rv - Home Meds: 16:00 metformin 500 mg Oral tab 1 tab 2 tabs PO QAM [Active]; potassium Oral daily [Active]; rv meloxicam oral oral [Active]; rosuvastatin oral oral [Active]; - PMHx: 16:00 Asthma; COPD; Diabetes - NIDDM; Diverticulitis; rv - PSHx: 16:00 ; Knee surgery; shoulder surgery; rv - Immunization history:: Adult Immunizations up to date. - Social history:: Smoking status: Patient/guardian denies using tobacco. - Ebola Screening: : No symptoms or risks identified at this time. Screenin:02 Abuse screen: Denies threats or abuse. Denies injuries from another. Nutritional rv screening: No deficits noted. Tuberculosis screening: No symptoms or risk factors identified. Fall Risk None identified. Assessment: 16:01 General: Appears in no apparent distress. comfortable, Behavior is calm, cooperative. rv Pain: Complains of pain in abdomen. Neuro: Level of Consciousness is awake, alert, obeys commands, Oriented to person, place, time, situation. Respiratory: Airway is patent. GI: Abdomen is round non-distended, obese, Reports lower abdominal pain, diarrhea, nausea. Derm: Skin with poor turgor. 17:10 Reassessment: Patient and/or family updated on plan of care and expected duration. Pain rv level reassessed. Patient is alert, oriented x 3, equal unlabored respirations, skin warm/dry/pink. awaiting CT scan. Patient states feeling better. Vital Signs: 15:57 BP 112 / 63; Pulse 86; Resp 19; Temp 98.3; Pulse Ox 94% on R/A; Weight 140.61 kg; rv Height 5 ft. 3 in. (160.02 cm); Pain 4/10; 17:09 Pain 0/10; rv 17:10 BP 121 / 59; Pulse 84; Resp 18; Pulse Ox 94% on R/A; rv 18:00 BP 124 / 61; Pulse 79; Resp 16; Pulse Ox 96% on R/A; rv 19:00 BP 118 / 66; Pulse 84; Resp 17; Pulse Ox 95% on R/A; rv 20:00 BP 123 / 60; Pulse 81; Resp 18; Pulse Ox 95% on R/A; rv 21:00 BP 119 / 58; Pulse 76; Resp 16; Pulse Ox 96% ; rv 15:57 Body Mass Index 54.91 (140.61 kg, 160.02 cm) rv ED Course: 15:55 Patient arrived in ED. rv 15:55 Enio Alas FNP-C is [facility]. la1 15:55 Tip Mcintyre MD is Attending Physician. la1 15:57 Triage completed. rv 16:02 Patient has correct armband on for positive identification. Bed in low position. Call rv light in reach. Side rails up X 1. Pulse ox on. NIBP on. 16:02 Patient placed in the treatment room, on a stretcher, on pulse oximetry, Patient rv notified of wait time. 16:07 Radiology exam delayed due to lab results not completed at this time. (BUN/Creatinine). vm2 16:16 Jorje Chavez RN is Primary Nurse. rv 16:17 Maintain EMS IV. Dressing intact. Good blood return noted. Site clean \T\ dry. Gauge \T\ rv site: G20 LEFT FA. 16:41 Initial lab(s) drawn, by cleaner laboratory equipment, sent to lab. rv 17:46 CT Abd/Pelvis - IV Contrast Only In Process Unspecified. EDMS 20:08 Michelle Tavera MD is Hospitalizing Provider. la1 21:36 No provider procedures requiring assistance completed. Patient admitted, IV remains in rv place. Administered Medications: 16:00 Drug: NS 0.9% 500 ml Route: IV; Rate: bolus; Site: left forearm; rv 17:09 Follow up: IV Status: Completed infusion; IV Intake: 500ml rv 16:08 Drug: Zofran 4 mg Route: IVP; Site: left forearm; rv 17:09 Follow up: Response: No adverse reaction rv 16:10 Drug: morphine 4 mg {Note: rass 0.} Route: IVP; Site: left forearm; rv 17:09 Follow up: Pain 0/10 Adult; Response: No adverse reaction; Marked relief of symptoms; rv Pain is decreased; RASS: Alert and Calm (0) 20:10 Drug: Cipro 400 mg Volume: 200 ml; Route: IVPB; Infused Over: 60 mins; Site: left rv femoral; 21:38 Follow up: IV Status: Completed infusion; IV Intake: 100ml rv 20:10 Drug: Flagyl 500 mg Volume: 100 ml; Route: IVPB; Rate: 200 ml/hr; Infused Over: 30 rv mins; Site: left forearm; 21:38 Follow up: IV Status: Completed infusion; IV Intake: 200ml rv 20:45 Drug: morphine 4 mg Route: IVP; Site: left forearm; rv 21:39 Follow up: Response: RASS: Alert and Calm (0) rv 21:25 Drug: Zofran 4 mg Route: IVP; Site: left forearm; rv 21:38 Follow up: Response: No adverse reaction rv Intake: 17:09 IV: 500ml; Total: 500ml. rv 21:38 IV: 100ml; Total: 600ml. rv 21:38 IV: 200ml; Total: 800ml. rv Outcome: 20:09 Decision to Hospitalize by Provider. la1 21:36 Admitted to Med/surg accompanied by tech, via wheelchair, room 210, with chart, Report rv called to NAY ABERNATHY 21:36 Condition: stable 21:36 Instructed on the need for admit. 21:42 Patient left the ED. rv Signatures: Dispatcher [employer] EDMS Enio Alas, DANIEL-C SLAT [id number] Sherri Ortega 2 Jorje Chavez, RN RN rv
[2019-10-22] MEDS ORDERED: MAGNESIUM HYDROXIDE 8% 30 ML PO PRN (20:43)
[2019-10-22] MEDS ORDERED: ALPRAZOLAM 0.25 MG TABLET PO PRN (20:43)
[2019-10-22 22:06] VITALS: BMI 52.9
[2019-10-22] MEDS: ONDANSETRON 4 MG/2 ML VIAL IV PRN (22:10)
[2019-10-22] MEDS: NA CHLORIDE 0.9% 1,000 ML IV SCH (22:10)
[2019-10-22] MEDS ORDERED: Levofloxacin500mg IV 500 MG/100 ML BAG IV SCH (23:45)
[2019-10-23] MEDS: METRONIDAZOLE 500mg IVPB 500 MG/100 ML BAG IV SCH ×3 (00:08→12:16)
[2019-10-23] MEDS: ACETAMINOPHEN 500 MG TAB PO PRN ×2 (01:59→19:48)
[2019-10-23 02:42] LABS: Urine Appearance CLEAR; Urine Blood NEGATIVE (NEG); Urine Color DK YELLOW; Urine Glucose NEGATIVE (NEG); Urine Protein NEGATIVE (NEG); Urine Specific Gravity >=1.030 (1.005-1.030); Urine pH 5.5 (5.0-7.0)
[2019-10-23 02:43] LABS: Urine Bilirubin 1+ (NEG); Urine Microscopic Reflex NO UMIC
[2019-10-23 05:39] LABS: Absolute Lymphocytes (CBC) 1.8 K/uL (0.7-4.9); Basophils % 0.6 % (0-1.3); Hematocrit 39.8 % (36.0-45.0); Lymphocytes % 9.3 % (15.3-44.8); MPV 8.5 fL (7.6-11.3); RBC Red Blood Cell Count 4.29 M/uL (3.86-4.86)
[2019-10-23 05:52] LABS: Albumin 2.7 g/dL (3.4-5.0); Bilirubin Total 1.7 mg/dL (0.2-1.0); Magnesium 1.6 mg/dL (1.8-2.4); Phosphorus 2.9 mg/dL (2.5-4.9); Potassium 4.3 mmol/L (3.5-5.1); Protein, Total 5.8 g/dL (6.4-8.2)
[2019-10-23 08:55] LABS: Blood Morphology Comment NOT SEEN (NOT SEEN); Platelet Estimate ADEQ
[2019-10-23] MEDS ORDERED: MAGNESIUM SULFATE 1 gm IVPB 1 GM/100 ML BAG IV ONE (09:00)
[2019-10-23] MEDS ORDERED: PNEUMOCOCCAL VACCINE 0.5 ML IMVAC ONE (09:00)
[2019-10-23] MEDS ORDERED: INFLUENZA VACCINE (for 3y+) 0.5 ML DOSE IMVAC ONE (09:00)
--- NOTE | 2019-10-23 09:06 | P.HP ---
Certification for Inpatient Patient admitted to: Observation With expected LOS: <2 Midnights Patient will require the following post-hospital care: None Practitioner: I am a practitioner with admitting privileges, knowledge of patient current condition, hospital course, and medical plan of care. Services: Services provided to patient in accordance with Admission requirements found in Title 42 Section 412.3 of the Code of Federal Regulations Patient History Date of Service: 10/22/19 Reason for admission: Sigmoid diverticulitis History of Present Illness: Patient is a 54-year-old female who came to the hospital with abdominal discomfort. Patient has a prior history of a stroke and sigmoid diverticulitis. She was found to have a contained abscess in the past around the same region. At this time, she will be admitted to the hospital and will continue IV antibiotics. Also continue with IV hydration and monitor for worsening symptoms. Patient will need outpatient colonoscopy. At this time will monitor her and keep her NPO. will also get GI consultation while in the hospital. Monitor labs closely. Patient also has a history of a prior stroke. She is on anti-platelet therapy as well as statin therapy. Allergies No Known Drug Allergies Allergy (Verified 12/28/16 06:00) Unknown No Known Allergies Allergy (Uncoded 12/28/16 05:58) Unknown Home Medications: Potassium Chloride [Klor-Con M10] 20 meq PO DAILY 05/18/15 Albuterol Sulfate [Proair Hfa] 8.5 gm IH TID PRN #1 [email or web address] 12/30/16 Fluticasone/Salmeterol [Advair 250/50 Diskus] 1 puff IH BID #1 disk 12/30/16 Meloxicam [Mobic] 15 mg PO DAILY 10/22/19 Rosuvastatin Calcium 5 mg PO DAILY 10/22/19 - Past Medical/Surgical History Diabetic: Yes -: Diabetes mellitus type 2 -: Hypertension -: History of CVA -: COPD -: Tobacco abuse -: Obesity -: Right ankle surgery -: Bilateral knee surgery -: Right shoulder surgery -: 3 previous C-sections Psychosocial/ Personal History: She is single, has 3 children. She does not work. - Family History Father Medical History: Heart disease Notes: heart attack Mother Medical History: Heart disease, Diabetes, Cancer Brother Medical History: Diabetes - Social History Smoking Status: Current every day smoker Alcohol use: No CD- Drugs: No Caffeine use: Yes Place of Residence: Home Review of Systems 10-point ROS is otherwise unremarkable Physical Examination - Vital Signs Temperature: 97.6 F Blood Pressure: 93/54 Pulse: 79 Respirations: 20 Pulse Ox (%): 92 - Physical Exam General: Alert, In no apparent distress, Oriented x3 HEENT: Atraumatic, Normocephalic Neck: Supple, 2+ carotid pulse no bruit Respiratory: Clear to auscultation bilaterally, Normal air movement Cardiovascular: Normal pulses, Regular rate/rhythm, Normal S1 S2 Gastrointestinal: Normal bowel sounds, Hypoactive, Soft and benign, Non- distended, No rebound, No guarding, Tenderness Musculoskeletal: No clubbing, No swelling Integumentary: No rashes Neurological: Normal speech, Normal strength at 5/5 x4 extr, Normal tone, Sensation intact, Cranial nerves 3-12 intact - Studies Laboratory Data (last 24 hrs) 10/22/19 16:35: Creatinine 0.78 10/22/19 16:35: WBC 17.0 H, Hgb 16.5 H, Hct 50.0 H, Plt Count 299 10/22/19 16:35: Sodium 141, Potassium 4.2, BUN 11, Creatinine 0.80, Glucose 109 H, Total Bilirubin 0.7, AST 14 L, ALT 22, Alkaline Phosphatase 109, Lipase 74 Assessment & Plan - Problems (Diagnosis) (1) Sigmoid diverticulitis Current Visit: Yes Status: Acute (2) COPD (chronic obstructive pulmonary disease) Current Visit: No Status: Acute Qualifiers: (3) Diabetes Onset Date: 05/19/15 Current Visit: No Status: Chronic Qualifiers: (4) History of CVA (cerebrovascular accident) Current Visit: No Status: Chronic (5) Hypertension Current Visit: No Status: Chronic Qualifiers: - Plan 1. Continue with IV hydration 2. Continue with IV antibiotics 3. Continue with pain control 4. NPO 5. GI consultation; outpatient colonoscopy in 6-12 weeks 6. Serial H&H, and we will monitor CBC, BMP, LFTs and lipase along with electrolytes. 7. GI and DVT prophylaxis Discharge Plan: Home Plan to discharge in: 48 Hours - Advance Directives Does patient have a Living Will: No Does patient have a Durable POA for Healthcare: No - Code Status/Comfort Care Code Status Assessed: Yes Code Status: Full Code Critical Care: No Time Spent Managing PTS Care (In Minutes): 45
[2019-10-23] MEDS: NA CHLORIDE 0.9% 1,000 ML IV SCH ×2 (09:27→16:40)
[2019-10-23] MEDS: ENOXAPARIN 40 MG/0.4 ML SQ SCH (09:30)
--- NOTE | 2019-10-23 11:22 | P.PN ---
Subjective Date of Service: 10/23/19 Chief Complaint: Sigmoid diverticulitis Patient states abdominal pain is much better today. She denies any bowel movement since hospitalization. She has been afebrile. Physical Examination - Vital Signs Temperature: 97.6 F Blood Pressure: 93/54 Pulse: 79 Respirations: 20 Pulse Ox (%): 92 - Physical Exam General: Alert, In no apparent distress HEENT: Mucous membr. moist/pink Respiratory: Clear to auscultation bilaterally, Normal air movement Cardiovascular: No edema, Regular rate/rhythm, Normal S1 S2 Gastrointestinal: Normal bowel sounds, Soft and benign, No rebound, No guarding , Tenderness (Left lower quadrant) Musculoskeletal: No swelling Integumentary: No rashes Neurological: Normal speech - Studies Laboratory Data (last 24 hrs) 10/22/19 16:35: Creatinine 0.78 10/22/19 16:35: WBC 17.0 H, Hgb 16.5 H, Hct 50.0 H, Plt Count 299 10/22/19 16:35: Sodium 141, Potassium 4.2, BUN 11, Creatinine 0.80, Glucose 109 H, Total Bilirubin 0.7, AST 14 L, ALT 22, Alkaline Phosphatase 109, Lipase 74 Assessment And Plan - Current Problems (Diagnosis) (1) Sigmoid diverticulitis Current Visit: Yes Status: Acute (2) COPD (chronic obstructive pulmonary disease) Current Visit: No Status: Chronic Qualifiers: (3) Diabetes Onset Date: 05/19/15 Current Visit: No Status: Chronic Qualifiers: (4) Morbid obesity Current Visit: Yes Status: Chronic - Plan 2nd episode of acute diverticulitis. Associated leukocytosis Patient states she had a colonoscopy about 1 year ago, and noted to have polyps. Continuing IV Flagyl and Levaquin Clear liquid diet Serial abdominal examination. Insulin sliding scale for glucose management. Hold metformin. Outpatient colonoscopy within 6 weeks recommended.
[2019-10-23] MEDS: CIPROFLOXACIN HCL 500 MG TAB PO SCH (20:58)
[2019-10-23] MEDS: metroNIDAZOLE 500 MG TABLET PO SCH (20:58)
[2019-10-23] MEDS ORDERED: MORPHINE 4 MG/ML SYR IV ONE (22:22)
[2019-10-23] MEDS: ONDANSETRON 4 MG/2 ML VIAL IV PRN (23:08)
[2019-10-24] MEDS: NA CHLORIDE 0.9% 1,000 ML IV SCH (03:00)
[2019-10-24 06:06] LABS: Absolute Lymphocytes (CBC) 0.9 K/uL (0.7-4.9); Basophils % 0.3 % (0-1.3); Hematocrit 42.1 % (36.0-45.0); Lymphocytes % 4.3 % (15.3-44.8); MPV 8.7 fL (7.6-11.3); RBC Red Blood Cell Count 4.52 M/uL (3.86-4.86)
[2019-10-24 06:07] LABS: Potassium 4.1 mmol/L (3.5-5.1)
[2019-10-24 06:27] LABS: Magnesium 1.8 mg/dL (1.8-2.4)
[2019-10-24 08:01] LABS: Blood Morphology Comment NOT SEEN (NOT SEEN); Platelet Estimate ADEQ; Urine White Blood Cell Casts OK
[2019-10-24] MEDS: metroNIDAZOLE 500 MG TABLET PO SCH (08:01)
[2019-10-24] MEDS: ENOXAPARIN 40 MG/0.4 ML SQ SCH (08:01)
[2019-10-24] MEDS: CIPROFLOXACIN HCL 500 MG TAB PO SCH (08:01)
[2019-10-24] MEDS ORDERED: Levofloxacin500mg IV 500 MG/100 ML BAG IV SCH (13:00)
--- NOTE | 2019-10-24 15:04 | P.PN ---
Subjective Date of Service: 10/24/19 Chief Complaint: Sigmoid diverticulitis Patient states she experienced severe abdominal pain last night. She denies any bowel movement since hospitalization. She has tolerated liquid diet. She still has significant leukocytosis. She lost her IV access and antibiotics was switched to oral Cipro and Flagyl yesterday. Physical Examination - Vital Signs Temperature: 98.4 F Blood Pressure: 112/57 Pulse: 85 Respirations: 20 Pulse Ox (%): 90 - Physical Exam General: Alert, In no apparent distress, Oriented x3 HEENT: Mucous membr. moist/pink Neck: JVD not distended Respiratory: Clear to auscultation bilaterally, Normal air movement Cardiovascular: No edema, Regular rate/rhythm, Normal S1 S2 Gastrointestinal: Soft and benign, No guarding, Tenderness (Lower abdomen) Musculoskeletal: No swelling Integumentary: No rashes Neurological: Normal speech, Normal strength at 5/5 x4 extr - Studies Laboratory Data (last 24 hrs) 10/24/19 05:28: Sodium 135 L, Potassium 4.1, BUN 5 L, Creatinine 0.75, Glucose 167 H, Magnesium 1.8 10/24/19 05:28: WBC 19.6 H, Hgb 13.8, Hct 42.1, Plt Count 263 Assessment And Plan - Current Problems (Diagnosis) (1) Sigmoid diverticulitis Current Visit: Yes Status: Acute (2) COPD (chronic obstructive pulmonary disease) Current Visit: No Status: Chronic Qualifiers: (3) Diabetes Onset Date: 05/19/15 Current Visit: No Status: Chronic Qualifiers: (4) Morbid obesity Current Visit: Yes Status: Chronic - Plan 2nd episode of acute diverticulitis. Leukocytosis is worse today Will switch back to IV Flagyl and Levaquin Clear liquid diet Serial abdominal examination. Insulin sliding scale for glucose management. Hold metformin. Outpatient colonoscopy within 6 weeks recommended.
[2019-10-24] MEDS: ONDANSETRON 4 MG/2 ML VIAL IV PRN (16:25)
[2019-10-24] MEDS: METRONIDAZOLE 500mg IVPB 500 MG/100 ML BAG IV SCH ×2 (17:52→23:08)
[2019-10-24 23:08] VITALS: O2SAT 93
[2019-10-24] MEDS: ACETAMINOPHEN 500 MG TAB PO PRN (23:54)
[2019-10-25] MEDS: METRONIDAZOLE 500mg IVPB 500 MG/100 ML BAG IV SCH (05:35)
[2019-10-25 06:34] LABS: Absolute Lymphocytes (CBC) 1.4 K/uL (0.7-4.9); Basophils % 0.7 % (0-1.3); Hematocrit 40.8 % (36.0-45.0); Lymphocytes % 10.2 % (15.3-44.8); MPV 8.9 fL (7.6-11.3); RBC Red Blood Cell Count 4.36 M/uL (3.86-4.86)
[2019-10-25 06:48] LABS: BUN Blood Urea Nitrogen 4 mg/dL (7-18); Bicarbonate 31 mmol/L (21-32); Glucose Level 126 mg/dL (74-106); Magnesium 1.9 mg/dL (1.8-2.4); Potassium 3.6 mmol/L (3.5-5.1); Sodium Level 141 mmol/L (136-145)
[2019-10-25] MEDS: ACETAMINOPHEN 500 MG TAB PO PRN (08:41)
[2019-10-25] MEDS: ENOXAPARIN 40 MG/0.4 ML SQ SCH (08:42)
--- NOTE | 2019-10-25 10:33 | P.DS ---
Admission Date: 10/24/19 Discharge Date: 10/25/19 Disposition: ROUTINE DISCHARGE Discharge Condition: FAIR Reason for Admission: Sigmoid diverticulitis - Problems (1) Sigmoid diverticulitis Current Visit: Yes Status: Acute (2) COPD (chronic obstructive pulmonary disease) Current Visit: No Status: Chronic Qualifiers: (3) Diabetes Onset Date: 05/19/15 Current Visit: No Status: Chronic Qualifiers: (4) Morbid obesity Current Visit: Yes Status: Chronic Brief History of Present Illness: 54-year-old morbidly obese woman with a history of stroke in the past presented to the emergency department with a complaint of sudden onset abdominal pain, located in the lower abdomen. The patient has a history of sigmoid diverticulitis and an abscess which was treated conservatively. CT abdomen and pelvis done in the ED reported findings suggestive of mild sigmoid diverticulitis. She had significant leukocytosis. The patient was admitted for further management. Hospital Course: Patient was treated with IV Levaquin and Flagyl, diet advanced to clear liquid which she tolerated. Her symptoms responded to the antibiotic therapy. Her abdominal pain calls resolved. Leukocytosis significantly improved. The patient was afebrile during the hospital stay. She had a bowel movement, no diarrhea or constipation. She needs to see GI for a repeat colonoscopy within 4 -6 weeks. Patient has been informed this referral is important as this is her 2nd episode of sigmoid diverticulitis, occurring at same spot. She is prescribed oral Flagyl and ciprofloxacin. She is deemed clinically stable for discharge. Her referral to GI as requested on discharge. Vital Signs/Physical Exam: Temp Pulse Resp BP Pulse Ox 97.7 F 70 20 105/58 L 94 10/25/19 04:00 10/25/19 04:00 10/25/19 04:00 10/25/19 04:00 10/25/19 04:00 General: Alert, In no apparent distress, Oriented x3 HEENT: Mucous membr. moist/pink Neck: Supple, JVD not distended Respiratory: Clear to auscultation bilaterally, Normal air movement Cardiovascular: No edema, Regular rate/rhythm, Normal S1 S2 Gastrointestinal: Normal bowel sounds, Soft and benign, No tenderness Musculoskeletal: No erythema Neurological: Normal speech, Normal strength at 5/5 x4 extr Laboratory Data at Discharge: WBC 13.5 K/uL (4.3-10.9) H D 10/25/19 05:16 Hgb 13.2 g/dL (12.0-15.0) 10/25/19 05:16 Hct 40.8 % (36.0-45.0) 10/25/19 05:16 Plt Count 241 K/uL (152-406) 10/25/19 05:16 Sodium 141 mmol/L (136-145) 10/25/19 05:16 Potassium 3.6 mmol/L (3.5-5.1) 10/25/19 05:16 BUN 4 mg/dL (7-18) L 10/25/19 05:16 Creatinine 0.58 mg/dL (0.55-1.3) 10/25/19 05:16 Glucose 126 mg/dL (74-106) H 10/25/19 05:16 Phosphorus 2.9 mg/dL (2.5-4.9) 10/23/19 05:09 Magnesium 1.9 mg/dL (1.8-2.4) 10/25/19 05:16 Total Bilirubin 1.7 mg/dL (0.2-1.0) H 10/23/19 05:09 AST 8 U/L (15-37) L 10/23/19 05:09 ALT 18 U/L (12-78) 10/23/19 05:09 Alkaline Phosphatase 72 U/L (45-117) 10/23/19 05:09 Lipase 74 U/L (73-393) 10/22/19 16:35 Home Medications: Potassium Chloride [Klor-Con M10] 20 meq PO DAILY 05/18/15 Albuterol Sulfate [Proair Hfa] 8.5 gm IH TID PRN #1 hfa.aer.ad 12/30/16 Fluticasone/Salmeterol [Advair 250/50 Diskus*] 1 puff IH BID #1 disk 12/30/16 Rosuvastatin Calcium 5 mg PO DAILY 10/22/19 Ciprofloxacin HCl 500 mg PO BID #14 tablet 10/25/19 metroNIDAZOLE [Flagyl] 500 mg PO Q8H #21 tablet 10/25/19 New Medications: Ciprofloxacin HCl 500 mg PO BID #14 tablet metroNIDAZOLE [Flagyl] 500 mg PO Q8H #21 tablet Diet: AHA Activity: Ad camryn Followup: Mike Javed MD [ASSOCIATE-ACTIVE - CAN ADMIT] - (Within 1 month.) Time spent managing pt's care (in minutes): 34
[2019-10-25 10:37] VITALS: BP 103/55; TEMP 97.6
== END 2019-10-25 11:05 | disposition home or self-care (01) | DRG 392 ==
LOC: ER 15:48 → ERHOLD 20:43 → 2ND 21:32 → OBSVTOIN 10-24 12:17
PROVIDERS: ADMIT Hospitalist; ATTEND Internal Medicine
DX: K57.32 Diverticulitis of large intestine without perforation or abscess without bleeding (principal); Z68.43 Body mass index [BMI] 50.0-59.9, adult; E11.9 Type 2 diabetes mellitus without complications; I10 Essential (primary) hypertension; J44.9 Chronic obstructive pulmonary disease, unspecified; E66.9 Obesity, unspecified; F17.200 Nicotine dependence, unspecified, uncomplicated; Z23 Encounter for immunization; Z86.73 Personal history of transient ischemic attack (TIA), and cerebral infarction without residual deficits
CPT/HCPCS: 36415; 74177; 80048; 80053; 80076; 81003; 82947; 83690; 83735; 84100; 84145; 85025; 90471; 90670; 96361; 96365; 96368; 96375; 99285; G0378; J0744; J1650; J2405; J3475; J7030; J7040; Q2035; Q9967

== ENCOUNTER 2022-09-24 03:36 | Inpatient (IN) | payer OTHER ==
--- OUTSIDE RECORDS SUMMARY | 2022-09-24 03:40 | XMS REPORT | Continuity of Care Document ---
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 00:00: Medical 00 [place] Diverticul Diverticul Disease Active [facility] colon with colon with 00:00: Me dical perforatio perforatio 00 Ce nter n n COPD COPD Disease Active [facility] ([facility] ([facility] obstructiv obstructiv 00[facility]: Me dical e e 00 Center pulmonary pulmonary disease) disease) Tobacco Tobacco Disease Active [facility] use use [facility] Obesity Obesity Disease Active [facility] Leukocytos Leukocytos Disease Active [facility] is is [facility] 00:[facility]: Medical 00 Center Hypomagnes Hypomagnes Disease Active [facility] emia emia 5-16 [facility] 00:00: Medical 00 [place] Diabetes Diabetes Disease Active [facility] mellitus mellitus [facility] Diverticul Diverticul Disease Active [facility] of itis of [facility] sigmoid sigmoid Medical colon colon Center Allergies, Adverse Reactions, Alerts This patient has no known allergies or adverse reactions. Social History Social Habit Start Date Stop Date Quantity Comments Source History [facility] Alcohol Std Drinks Medica l Center History SDOH [facility] Alcohol Binge Medical [facility] History SDAK [facility] Alcohol Comment Medical C enter Cigarettes smoked 2019-03-20 2019-03-[address] [facility] current (pack per 00:00:00 00:00:00 [facility] Center day) - Reported Cigarette 2019-03-20 2019-03-[address] [facility] pack-years 00:00:00 00:00:00 [facility] Alcohol intake 2019-03-20 2019-03-[address] [facility] St Familia es 00:00:00 00:00:00 non-drinker of Medical Ce nter alcohol (finding) History FLOH 2019-03-20 2019-03-[address] [facility] Alcohol Frequency 00:00:00 00:00:00 [facility] Sex Assigned At [birth year] [facility] tamys 00:00:00 00:00:00 [facility] Smoking Status Start Date Stop Date Source Current every day smoker 2019-03-20 00:00:00 [facility] Medications Ordered Filled Start Stop Current Ordering Indication Dosage Frequency Signature Comments Components Source Medication Medication Date Date Medication? Clinician (SIG) Name Name furosemide Yes 40mg QD Take [address] (LASIX) 40 5-20 by mouth [facility] MG tablet 12:07: daily. Medica l 23 Center metFORMIN Yes 750mg Take [address] [facility] [address] (GLUCOPHAGE 5-20 mg by [facility] -XR) 750 MG 12:07: mouth Medic al 24 hr 23 daily with Center tablet breakfast. potassium Yes 20meq Q.5D Take [address] chloride SA 5-20 mEq by [facility] (K-DUR,KLOR 12:07: mouth 2 Med ical -CON) 20 23 (two) Center MEQ tablet times daily. meloxicam Yes 15mg QD Take [address] (MOBIC) 15 5-20 by mouth [facility] MG tablet 12:07: daily. Medica l 23 Center rosuvastati Yes 5mg QD Take [address] n (CRESTOR) 5-20 by mouth Luke s 5 MG tablet 12:07: daily. Medi yomi 23 Center metoprolol Yes 50mg QD Take [address] (TOPROL-XL) 5-20 by mouth Luke s 50 MG 24 hr 12:07: daily. Medi yomi tablet 23 Center fluticasone Yes 2{puff} QD Inhale [address] propion-ibanka 5-20 puffs by Luke s meterol 12:07: mouth via Medic al (ADVAIR) 23 inhaler Center 250-50 daily. mcg/dose diskus inhaler ipratropium Yes 2{puff} Q.25D Inhale [address] /albuterol 5-20 puffs by [facility] sulfate 12:07: mouth via Medic al (COMBIVENT 23 inhaler 4 Cent er INHL) (four) times daily. Procedures This patient has no known procedures. Results Test Description Test Time Test Comments Results Result Comments Source BLOOD CULTURE 2019-03-25 08:01:00 Test Item Value Reference Range Interpretation Comme nts CULTURE ([facility]) (test code = 1095) No growth in 5 days BLOOD [id number] 08:01:00 Test Item Value Reference Range Interpretation Comments CULTURE ([facility]) (test No growth in 5 days code = 1095) POCT-GLUCOSE [id number] 08:21:00 Test Item Value Reference Range Interpretation Comments POC-GLUCOSE METER 193 mg/dL 70-110 H TESTED AT [place] [address] ([facility]) (test code = [facility] Philippe [facility] 1538) [id number] POCT-GLUCOSE [id number] 22:28:00 Test Item Value Reference Range Interpretation Comments POC-GLUCOSE METER 134 mg/dL 70-110 H TESTED AT [place] [address] ([facility]) (test code = [facility] Pae[facility] 1538) [id number] POCT-GLUCOSE [id number] 17:09:00 Test Item Value Reference Range Interpretation Comments POC-GLUCOSE METER 109 mg/dL 70-110 TESTED AT [place] [address] ([facility]) (test code = MANNFL Philippe [facility] 1538) [id number] POCT-GLUCOSE [id number] 12:54:00 Test Item Value Reference Range Interpretation Comments POC-GLUCOSE METER 98 mg/dL 70-110 TESTED AT [place] [address] ([facility]) (test code = [facility]PRE[facility] Paez [facility] [address] 1538) CBC (HEMOGRAM ONLY)2019-03-23 05:37:00 Test Item Value Reference Range Interpretation Comments WHITE BLOOD CELL COUNT (BEAKER) 10.5 K/ L 3.5-10.5 (test code = 775) RED BLOOD CELL COUNT (BEAKER) 4.26 M/ L 3.93-5.22 (test code = 761) HEMOGLOBIN (BEAKER) (test code = 12.1 GM/DL 11.2-15.7 410) HEMATOCRIT (BEAKER) (test code = 38.7 % 34.1-44.9 411) MEAN CORPUSCULAR VOLUME (BEAKER) 90.8 fL 79.4-94.8 (test code = 753) MEAN CORPUSCULAR HEMOGLOBIN 28.4 pg 25.6-32.2 (BEAKER) (test code = 751) MEAN CORPUSCULAR HEMOGLOBIN CONC 31.3 GM/DL 32.2-35.5 L (BEAKER) (test code = 752) RED CELL DISTRIBUTION WIDTH 14.5 % 11.7-14.4 H (BEAKER) (test code = 412) PLATELET COUNT (BEAKER) (test 339 K/CU MM 150-450 code = 756) MEAN PLATELET VOLUME (BEAKER) 9.8 fL 9.4-12.3 (test code = 754) NUCLEATED RED BLOOD CELLS 0 /100 WBC 0-0 (BEAKER) (test code = 413) POCT-GLUCOSE [id number] 22:36:00 Test Item Value Reference Range Interpretation Comments POC-GLUCOSE METER 102 mg/dL 70-110 TESTED AT [place] [address] ([facility]) (test code = [facility] 1538) [id number] POCT-GLUCOSE [id number] 18:00:00 Test Item Value Reference Range Interpretation Comments POC-GLUCOSE METER 101 mg/dL 70-110 TESTED AT [place] [address] ([facility]) (test code = [facility] 1538) [id number] POCT-GLUCOSE [id number] 12:35:00 Test Item Value Reference Range Interpretation Comments POC-GLUCOSE METER 98 mg/dL 70-110 TESTED AT [place] [address] ([facility]) (test code = [facility] [address] 1538) POCT-GLUCOSE [id number] 06:05:00 Test Item Value Reference Range Interpretation Comments POC-GLUCOSE METER 116 mg/dL 70-110 H TESTED AT [facility] 6720 (BEAKER) (test code = [facility] [place] 1538) [id number] CBC W/PLT COUNT & AUTO [id number] 05:36:00 Test Item Value Reference Range Interpretation Comments WHITE BLOOD CELL COUNT (BEAKER) 11.1 K/ L 3.5-10.5 H (test code = 775) RED BLOOD CELL COUNT (BEAKER) 4.43 M/ L 3.93-5.22 (test code = 761) HEMOGLOBIN (BEAKER) (test code = 12.7 GM/DL 11.2-15.7 410) HEMATOCRIT (BEAKER) (test code = 40.7 % 34.1-44.9 411) MEAN CORPUSCULAR VOLUME (BEAKER) 91.9 fL 79.4-94.8 (test code = 753) MEAN CORPUSCULAR HEMOGLOBIN 28.7 pg 25.6-32.2 (BEAKER) (test code = 751) MEAN CORPUSCULAR HEMOGLOBIN CONC 31.2 GM/DL 32.2-35.5 L (BEAKER) (test code = 752) RED CELL DISTRIBUTION WIDTH 14.3 % 11.7-14.4 (BEAKER) (test code = 412) PLATELET COUNT (BEAKER) (test 329 K/CU MM 150-450 code = 756) MEAN PLATELET VOLUME (BEAKER) 10.0 fL 9.4-12.3 (test code = 754) NUCLEATED RED BLOOD CELLS 0 /100 WBC 0-0 (BEAKER) (test code = 413) NEUTROPHILS RELATIVE PERCENT 73 % (BEAKER) (test code = 429) LYMPHOCYTES RELATIVE PERCENT 17 % (BEAKER) (test code = 430) MONOCYTES RELATIVE PERCENT 5 % (BEAKER) (test code = 431) EOSINOPHILS RELATIVE PERCENT 3 % (BEAKER) (test code = 432) BASOPHILS RELATIVE PERCENT 1 % (BEAKER) (test code = 437) NEUTROPHILS ABSOLUTE COUNT 8.03 K/ L 1.56-6.13 H (BEAKER) (test code = 670) LYMPHOCYTES ABSOLUTE COUNT 1.84 K/ L 1.18-3.74 (BEAKER) (test code = 414) MONOCYTES ABSOLUTE COUNT (BEAKER) 0.59 K/ L 0.24-0.36 H (test code = 415) EOSINOPHILS ABSOLUTE COUNT 0.36 K/ L 0.04-0.36 (BEAKER) (test code = 416) BASOPHILS ABSOLUTE COUNT (BEAKER) 0.06 K/ L 0.01-0.08 (test code = 417) IMMATURE GRANULOCYTES-RELATIVE 2 % 0-1 H PERCENT (BEAKER) (test code = 2801) [id number] 05:35:00 Test Item Value Reference Range Interpretation Comments PHOSPHORUS (BEAKER) (test code = 2.5 mg/dL 2.3-4.7 604) [id number] 05:35:00 Test Item Value Reference Range Interpretation Comments MAGNESIUM (BEAKER) (test code = 1.7 mg/dL 1.6-2.6 627) BASIC METABOLIC [id number] 05:35:00 Test Item Value Reference Range Interpretation Comments SODIUM (BEAKER) 138 meq/L 136-145 (test code = 381) POTASSIUM (BEAKER) 3.7 meq/L 3.5-5.1 (test code = 379) CHLORIDE (BEAKER) 105 meq/L 98-107 (test code = 382) CO2 (BEAKER) (test 24 meq/L 22-29 code = 355) BLOOD UREA NITROGEN 4 mg/dL 7-21 L (BEAKER) (test code = 354) CREATININE (BEAKER) 0.70 mg/dL 0.57-1.25 (test code = 358) GLUCOSE RANDOM 108 mg/dL 70-105 H (BEAKER) (test code = 652) CALCIUM (BEAKER) 8.9 mg/dL 8.4-10.2 (test code = 697) EGFR (BEAKER) (test 87 mL/min/1.73 ESTIMA ALLA GFR IS code = 1092) sq m NOT ACCURATE CREATININE CLEARANCE IN PREDICTING GLOMERULAR FILTRATION RATE . ESTIMATED GFR I S NOT APPLICABLE FOR DIALYSIS PATIEN TS. POCT-GLUCOSE [id number] 00:38:00 Test Item Value Reference Range Interpretation Comments POC-GLUCOSE METER 106 mg/dL 70-110 TESTED AT [facility] 6720 (BEAKER) (test code = [facility] [place] 1538) [id number] POCT-GLUCOSE [id number] 17:29:00 Test Item Value Reference Range Interpretation Comments POC-GLUCOSE METER 108 mg/dL 70-110 TESTED AT [facility] 6720 (BEAKER) (test code = [place] Pae[place] 1538) [id number] POCT-GLUCOSE [id number] 12:50:00 Test Item Value Reference Range Interpretation Comments POC-GLUCOSE METER 120 mg/dL 70-110 H TESTED AT [facility] 6720 (BEAKER) (test code = [place] [place]ae[place] 1538) [id number] POCT-GLUCOSE [id number] 05:37:00 Test Item Value Reference Range Interpretation Comments POC-GLUCOSE METER 134 mg/dL 70-110 H TESTED AT [facility] 6720 (BEAKER) (test code = [facility] Pae[place] 1538) [id number] 03:52:00 Test Item Value Reference Range Interpretation Comments PHOSPHORUS (BEAKER) (test code = 3.1 mg/dL 2.3-4.7 604) [id number] 03:52:00 Test Item Value Reference Range Interpretation Comments MAGNESIUM (BEAKER) (test code = 1.5 mg/dL 1.6-2.6 L 627) BASIC METABOLIC [id number] 03:52:00 Test Item Value Reference Range Interpretation Comments SODIUM (BEAKER) 139 meq/L 136-145 (test code = 381) POTASSIUM (BEAKER) 3.7 meq/L 3.5-5.1 (test code = 379) CHLORIDE (BEAKER) 106 meq/L 98-107 (test code = 382) CO2 (BEAKER) (test 27 meq/L 22-29 code = 355) BLOOD UREA NITROGEN 4 mg/dL 7-21 L (BEAKER) (test code = 354) CREATININE (BEAKER) 0.69 mg/dL 0.57-1.25 (test code = 358) GLUCOSE RANDOM 126 mg/dL 70-105 H (BEAKER) (test code = 652) CALCIUM (BEAKER) 9.2 mg/dL 8.4-10.2 (test code = 697) EGFR (BEAKER) (test 88 mL/min/1.73 ESTIMA ALLA GFR IS code = 1092) sq m NOT ACCURATE CREATININE CLEARANCE IN PREDICTING GLOMERULAR FILTRATION RATE . ESTIMATED GFR I S NOT APPLICABLE FOR DIALYSIS PATIEN TS. CBC W/PLT COUNT & AUTO [id number] 03:41:00 Test Item Value Reference Range Interpretation Comments WHITE BLOOD CELL COUNT (BEAKER) 13.3 K/ L 3.5-10.5 H (test code = 775) RED BLOOD CELL COUNT (BEAKER) 4.37 M/ L 3.93-5.22 (test code = 761) HEMOGLOBIN (BEAKER) (test code = 12.7 GM/DL 11.2-15.7 410) HEMATOCRIT (BEAKER) (test code = 40.8 % 34.1-44.9 411) MEAN CORPUSCULAR VOLUME (BEAKER) 93.4 fL 79.4-94.8 (test code = 753) MEAN CORPUSCULAR HEMOGLOBIN 29.1 pg 25.6-32.2 (BEAKER) (test code = 751) MEAN CORPUSCULAR HEMOGLOBIN CONC 31.1 GM/DL 32.2-35.5 L (BEAKER) (test code = 752) RED CELL DISTRIBUTION WIDTH 14.4 % 11.7-14.4 (BEAKER) (test code = 412) PLATELET COUNT (BEAKER) (test 272 K/CU MM 150-450 code = 756) MEAN PLATELET VOLUME (BEAKER) 10.0 fL 9.4-12.3 (test code = 754) NUCLEATED RED BLOOD CELLS 0 /100 WBC 0-0 (BEAKER) (test code = 413) NEUTROPHILS RELATIVE PERCENT 76 % (BEAKER) (test code = 429) LYMPHOCYTES RELATIVE PERCENT 15 % (BEAKER) (test code = 430) MONOCYTES RELATIVE PERCENT 5 % (BEAKER) (test code = 431) EOSINOPHILS RELATIVE PERCENT 2 % (BEAKER) (test code = 432) BASOPHILS RELATIVE PERCENT 1 % (BEAKER) (test code = 437) NEUTROPHILS ABSOLUTE COUNT 10.14 K/ L 1.56-6.13 H (BEAKER) (test code = 670) LYMPHOCYTES ABSOLUTE COUNT 1.96 K/ L 1.18-3.74 (BEAKER) (test code = 414) MONOCYTES ABSOLUTE COUNT (BEAKER) 0.62 K/ L 0.24-0.36 H (test code = 415) EOSINOPHILS ABSOLUTE COUNT 0.29 K/ L 0.04-0.36 (BEAKER) (test code = 416) BASOPHILS ABSOLUTE COUNT (BEAKER) 0.06 K/ L 0.01-0.08 (test code = 417) IMMATURE GRANULOCYTES-RELATIVE 2 % 0-1 H PERCENT ([facility]) (test code = 2801) POCT-GLUCOSE [id number] 23:23:00 Test Item Value Reference Range Interpretation Comments POC-GLUCOSE METER 114 mg/dL 70-110 H TESTED AT [place] [address] ([facility]) (test code = [facility] 1538) [id number] POCT-GLUCOSE [id number] 18:36:00 Test Item Value Reference Range Interpretation Comments POC-GLUCOSE METER 120 mg/dL 70-110 H TESTED AT [place] [address] ([facility]) (test code = [facility] 1538) [id number] POCT-GLUCOSE [id number] 12:40:00 Test Item Value Reference Range Interpretation Comments POC-GLUCOSE METER 129 mg/dL 70-110 H TESTED AT [place] [address] ([facility]) (test code = [facility] 1538) [id number] HEMOGLOBIN [id number] 09:37:00 Test Item Value Reference Range Interpretation Comments HEMOGLOBIN A1C ([facility]) (test code = 6.2 % 4.3-6.1 H 368) TSH/FREE T4 IF [id number] 03:15:00 Test Item Value Reference Range Interpretation Comments THYROID STIMULATING HORMONE 1.19 uIU/mL 0.35-4.94 ([facility]) (test code = 772) C-REACTIVE [id number] 03:14:00 Test Item Value Reference Range Interpretation Comments C-REACTIVE PROTEIN ([facility]) (test 24.16 mg/dL 0.00-0.50 H code = 676) TROPONIN [id number] 02:52:00 Test Item Value Reference Range Interpretation Comments TROPONIN I ([facility]) (test code = 397) < ng/mL 0.00-0.03 Troponin I (TnI) levels [...] disease, and persistent tachyarrhythmia.B-TYPE NATRIURETIC FACTOR (BNP) 2019-03-20 02:52:00 Test Item Value Reference Range Interpretation Comments B-TYPE NATRIURETIC PEPTIDE (BEAKER) 16 pg/mL 0-100 (test code = 700) CREATINE KINASE (CK)2019-03-20 02:43:00 Test Item Value Reference Range Interpretation Comments CREATINE KINASE TOTAL (BEAKER) (test 22 U/L 29-200 L code = 380) [id number] 02:43:00 Test Item Value Reference Range Interpretation Comments PHOSPHORUS (BEAKER) (test code = 3.0 mg/dL 2.3-4.7 604) [id number] 02:43:00 Test Item Value Reference Range Interpretation Comments MAGNESIUM (BEAKER) (test code = 1.4 mg/dL 1.6-2.6 L 627) BASIC METABOLIC [id number] 02:43:00 Test Item Value Reference Range Interpretation Comments SODIUM (BEAKER) 137 meq/L 136-145 (test code = 381) POTASSIUM (BEAKER) 3.6 meq/L 3.5-5.1 (test code = 379) CHLORIDE (BEAKER) 105 meq/L 98-107 (test code = 382) CO2 (BEAKER) (test 25 meq/L 22-29 code = 355) BLOOD UREA NITROGEN 6 mg/dL 7-21 L (BEAKER) (test code = 354) CREATININE (BEAKER) 0.83 mg/dL 0.57-1.25 (test code = 358) GLUCOSE RANDOM 139 mg/dL 70-105 H (BEAKER) (test code = 652) CALCIUM (BEAKER) 9.1 mg/dL 8.4-10.2 (test code = 697) EGFR (BEAKER) (test 71 mL/min/1.73 ESTIMA ALLA GFR IS code = 1092) sq m NOT ACCURATE CREATININE CLEARANCE IN PREDICTING GLOMERULAR FILTRATION RATE . ESTIMATED GFR I S NOT APPLICABLE FOR DIALYSIS PATIEN TS. LIPID [id number] 02:43:00 Test Item Value Reference Range Interpretation Comments TRIGLYCERIDES (BEAKER) (test code = 76 mg/dL 540) CHOLESTEROL (BEAKER) (test code = 77 mg/dL 631) HDL CHOLESTEROL (BEAKER) (test code 40 mg/dL = 976) LDL CHOLESTEROL CALCULATED (BEAKER) 22 mg/dL (test code = 633) Triglyceride Reference Range: Low Risk <150 Borderline 150-199 High Risk 200- 499 Very High Risk >=500Cholesterol Reference Range: Low Risk <200 Borderline 200-239 High Risk >240HDL Cholesterol Reference Range: Low Risk >=60 High Risk <40LDL Cholesterol Reference Range: Optimal <100 Near Optimal 100-129 Borderline 130-159 High 160-189 Very High >=190HEPATIC FUNCTION [id number] 02:43:00 Test Item Value Reference Range Interpretation Comments TOTAL PROTEIN (BEAKER) (test code = 6.5 gm/dL 6.0-8.3 770) ALBUMIN (BEAKER) (test code = 1145) 3.4 g/dL 3.5-5.0 L BILIRUBIN TOTAL (BEAKER) (test code 2.2 mg/dL 0.2-1.2 H = 377) BILIRUBIN DIRECT (BEAKER) (test 0.8 mg/dL 0.1-0.5 H code = 706) ALKALINE PHOSPHATASE (BEAKER) (test 101 U/L 40-150 code = 346) AST (SGOT) (BEAKER) (test code = 9 U/L 5-34 353) ALT (SGPT) (BEAKER) (test code = 13 U/L 6-55 347) CBC W/PLT COUNT & AUTO [id number] 02:24:00 Test Item Value Reference Range Interpretation Comments WHITE BLOOD CELL COUNT (BEAKER) 18.2 K/ L 3.5-10.5 H (test code = 775) RED BLOOD CELL COUNT (BEAKER) 4.59 M/ L 3.93-5.22 (test code = 761) HEMOGLOBIN (BEAKER) (test code = 13.5 GM/DL 11.2-15.7 410) HEMATOCRIT (BEAKER) (test code = 42.8 % 34.1-44.9 411) MEAN CORPUSCULAR VOLUME (BEAKER) 93.2 fL 79.4-94.8 (test code = 753) MEAN CORPUSCULAR HEMOGLOBIN 29.4 pg 25.6-32.2 (BEAKER) (test code = 751) MEAN CORPUSCULAR HEMOGLOBIN CONC 31.5 GM/DL 32.2-35.5 L (BEAKER) (test code = 752) RED CELL DISTRIBUTION WIDTH 14.7 % 11.7-14.4 H (BEAKER) (test code = 412) PLATELET COUNT (BEAKER) (test 263 K/CU MM 150-450 code = 756) MEAN PLATELET VOLUME (BEAKER) 10.0 fL 9.4-12.3 (test code = 754) NUCLEATED RED BLOOD CELLS 0 /100 WBC 0-0 (BEAKER) (test code = 413) NEUTROPHILS RELATIVE PERCENT 82 % (BEAKER) (test code = 429) LYMPHOCYTES RELATIVE PERCENT 11 % (BEAKER) (test code = 430) MONOCYTES RELATIVE PERCENT 4 % (BEAKER) (test code = 431) EOSINOPHILS RELATIVE PERCENT 1 % (BEAKER) (test code = 432) BASOPHILS RELATIVE PERCENT 0 % (BEAKER) (test code = 437) NEUTROPHILS ABSOLUTE COUNT 14.82 K/ L 1.56-6.13 H (BEAKER) (test code = 670) LYMPHOCYTES ABSOLUTE COUNT 2.03 K/ L 1.18-3.74 (BEAKER) (test code = 414) MONOCYTES ABSOLUTE COUNT (BEAKER) 0.80 K/ L 0.24-0.36 H (test code = 415) EOSINOPHILS ABSOLUTE COUNT 0.12 K/ L 0.04-0.36 (BEAKER) (test code = 416) BASOPHILS ABSOLUTE COUNT (BEAKER) 0.06 K/ L 0.01-0.08 (test code = 417) IMMATURE GRANULOCYTES-RELATIVE 2 % 0-1 H PERCENT (BEAKER) (test code = 2806) POCT-GLUCOSE [id number] 01:09:00 Test Item Value Reference Range Interpretation Comments POC-GLUCOSE METER 147 mg/dL 70-110 H TESTED AT [facility] [address] ([facility]) (test code = [place] 1538) [id number]
[2022-09-24] MEDS ORDERED: ALBUTEROL 2.5 MG/3 ML NEB SOL ONE (04:17)
[2022-09-24] MEDS ORDERED: NA CHLORIDE 0.9% 500 ML ONE (04:45)
[2022-09-24] MEDS ORDERED: Levofloxacin 750mg IV 750 MG/150 ML BAG IV ONE (04:45)
[2022-09-24 04:47] LABS: Absolute Lymphocytes (CBC) 0.4 K/uL (0.7-4.9); Lymphocytes % 3.5 % (15.3-44.8); MCV 94.1 fL (80-100); MPV 8.1 fL (7.6-11.3)
[2022-09-24 05:00] LABS: Arterial Blood Carboxyhemoglob 6.2 % (0-1.5); Blood Gas Oxyhemoglobin 80.8 % (94-97); Blood O2 Saturation 87.4 % (92-98.5)
[2022-09-24 05:16] LABS: Albumin 3.4 g/dL (3.4-5.0); Protein, Total 7.1 g/dL (6.4-8.2); Troponin High Sensitivity 8.7 pg/mL (<58.9)
[2022-09-24 05:17] LABS: Magnesium 1.7 mg/dL (1.8-2.4); Potassium 4.7 mmol/L (3.5-5.1)
[2022-09-24 05:24] LABS: Blood Morphology Comment NOT SEEN (NOT SEEN); Platelet Estimate ADEQ
--- NOTE | 2022-09-24 05:29 | P.HP ---
Certification for Inpatient Patient admitted to: Inpatient With expected LOS: >2 Midnights Patient will require the following post-hospital care: None Practitioner: I am a practitioner with admitting privileges, knowledge of patient current condition, hospital course, and medical plan of care. Services: Services provided to patient in accordance with Admission requirements found in Title 42 Section 412.3 of the Code of Federal Regulations <EvetteEnio Beth - Last Filed: 09/24/22 05:24> Patient History Date of Service: 09/24/22 Reason for admission: Sepsis, pneumonia, COPD exacerbation History of Present Illness: 57-year-old female with history of COPD, ziz-[id number] diabetes presents the emergency department for dyspnea, cough, fever/chills. She reports her symptoms have been going on over the course last couple days. He was brought in by EMS and given steroids, oxygen, nebs prior to arrival. She is evaluated here in the emergency department labs were significant for leukocytosis with white blood cell count of 12.8 magnesium 1.7 ABG shows a pH of 7.28 PCO2 of 70 PO2 58.3 HCO3 31.4. Patient was started on BiPAP in the emergency department chest x-ray showed concern for left-sided early pneumonia versus atelectasis. There is criteria were present including leukocytosis, tachypnea lactic acid less than 2. Patient was started on antibiotics ED prior wishes to admit for further evaluation and management of respiratory failure, COPD exacerbation, pneumonia. - Past Medical/Surgical History Diabetic: Yes -: Diabetes mellitus type 2 -: Hypertension -: History of CVA -: COPD -: Tobacco abuse -: Obesity -: Right ankle surgery -: Bilateral knee surgery -: Right shoulder surgery -: 3 previous C-sections Psychosocial/ Personal History: She is single, has 3 children. She does not w ork. - Family History Father -: Heart disease Notes: heart attack Mother -: Heart disease, Diabetes, Cancer Brother -: Diabetes - Social History Smoking Status: Current every day smoker Counseled patient to stop smoking for: less than 10 minutes Alcohol use: No CD- Drugs: No Caffeine use: Yes Place of Residence: Home <Enio Alas - Last Filed: 09/24/22 05:24> Date of Service: 09/24/22 <Mau Santillan - Last Filed: 09/24/22 17:51> Allergies No Known Drug Allergies Allergy (Verified 12/28/16 06:00) Unknown No Known Allergies Allergy (Uncoded 12/28/16 05:58) Unknown Home Medications: RX: Potassium Chloride [Klor-Con M10] 20 meq PO DAILY 05/18/15 RX: Albuterol Sulfate [Proair Hfa] 8.5 gm IH TID PRN #1 hfa.aer.[email or web address] 12/30/16 RX: Fluticasone/Salmeterol [Advair 250/50 Diskus*] 1 puff IH BID #1 disk 12/30/16 RX: Rosuvastatin Calcium 10 mg PO DAILY 10/22/19 RX: Ciprofloxacin HCl 500 mg PO BID #14 tablet 10/25/19 metroNIDAZOLE [Flagyl] 500 mg PO Q8H #21 tablet 10/25/19 Ipratropium/Albuterol Sulfate [Combivent Respimat 20-100 Mcg] 09/24/22 Metformin HCl [Metformin HCl ER] 750 mg PO BID 09/24/22 Nicotine [Nicotine Patch] 09/24/22 RX: Furosemide 40 mg PO 1X 09/24/22 RX: Meloxicam 15 mg PO 1X 09/24/22 RX: Metoprolol Succinate 50 mg PO DAILY 09/24/22 Umeclidinium Lopez [Incruse Ellipta] 62.5 mcg 09/24/22 Review of Systems 10-point ROS is otherwise unremarkable General: Fever, Chills, Malaise Respiratory: Cough, Shortness of Breath, Sputum, Wheezing <AttemEnio patton Kirit - Last Filed: 09/24/22 05:24> Physical Examination - Physical Exam General: Alert, In no apparent distress, Oriented x3 HEENT: Atraumatic, PERRLA, Mucous membr. moist/pink, EOMI, Sclerae nonicteric Neck: Supple, 2+ carotid pulse no bruit, No LAD, Without JVD or thyroid abnormality Respiratory: Diminished, Expiratory wheezes Cardiovascular: Regular rate/rhythm, Normal S1 S2 Capillary refill: <2 Seconds Gastrointestinal: Normal bowel sounds, No tenderness Musculoskeletal: No tenderness Integumentary: No rashes Neurological: Normal speech, Normal strength at 5/5 x4 extr, Normal tone, Normal affect - Studies Laboratory Data (last 24 hrs) 09/24/22 04:37: Sodium 138, Potassium 4.7, BUN 10, Creatinine 0.76, Glucose 171 H, Magnesium 1.7 L, Total Bilirubin 1.0, AST 26, ALT 35, Alkaline Phosphatase 79 09/24/22 04:37: WBC 12.80 H, Hgb 15.2 H, Hct 48.0 H, Plt Count 259 <Enio Alas - Last Filed: 09/24/22 05:24> - Studies Laboratory Data (last 24 hrs) 09/24/22 04:37: Sodium 138, Potassium 4.7, BUN 10, Creatinine 0.76, Glucose 171 H, Magnesium 1.7 L, Total Bilirubin 1.0, AST 26, ALT 35, Alkaline Phosphatase 79 09/24/22 04:37: WBC 12.80 H, Hgb 15.2 H, Hct 48.0 H, Plt Count 259 Microbiology Data (last 24 hrs): 09/24/22 04:29 Blood - Blood Anaerobic Blood Culture - Final <Mau Santillan - Last Filed: 09/24/22 17:51> Assessment and Plan - Plan Assessment: Acute hypoxic/hypercapnic respiratory failure secondary to COPD with exacerbation Severe Sepsis secondary to pneumonia Diabetes was type FJrta-vnkwrnj-ftkceghzr with hyperglycemia Plan: Acute hypoxic/hypercapnic respiratory failure secondary to COPD with exacerbation: BiPap, IV steroids, ICS, pulmonary consult, daily room air sats. Continue abx with zithromax/rocephin. Repeat ABG later this morning. Sepsis sepsis secondary to pneumonia: Sirs criteria present tachypnea, leukocytosis, and source of infection with pneumonia, requiring Bipap so meets criteria for severe sepsis. Diabetes was type GBebi-qytemso-iwhzbzbns with hyperglycemia: ACHS accucheck, SSI. A1c. DVT PPX: Lovenox Code status:Full Discharge Plan: Home Plan to discharge in: 72 Hours - Advance Directives Does patient have a Living Will: No Does patient have a Durable POA for Healthcare: No - Code Status/Comfort Care Code Status Assessed: Yes (Full code) Critical Care: No Time Spent Managing Pts Care (In Minutes): 70 <Enio Alas - Last Filed: 09/24/22 05:24> Physician Review: Patient Assessed, Agree with Above Assessment and Plan Physician Review Additional Text: Following admission, she became nauseous and vomited into her BiPAP mask. Stat ABG revealed a pH of 7.17 and PCO2 90.2. Given that she was no longer protecting her airway and was becoming more hypercapnic, I recommended that we proceed with endotracheal intubation. I had a detailed discussion with her and her son, Mr. Bean, who is at bedside. They agreed to proceed with intubation. I consulted the Emergency Medicine physician, Dr. Pierce, and requested that he perform endotracheal intubation. He initially agreed. Shortly after, I returned to the room, to find that she was not intubated. I spoke with Dr. Pierce who stated that he felt that she was doing fine and did not need to be intubated. I attempted to control her nausea with antiemetics and placed her back on BiPAP. Repeat ABG revealed pH of 7.23 and a PCO2 of 79.1. She continues to appear slightly confused, but is protecting her airway at this time. We will plan for repeat ABG at 18:00. Her son (Mr. Bean) has been updated on this plan and is in agreement. If endotracheal intubation is required, will update family and consult emergency medicine physician. Mau Santillan M.D. <Mau Santillan - Last Filed: 09/24/22 17:51>
[2022-09-24 05:34] LABS: SARS-COV-2 RT PCR NEGATIVE (NEGATIVE)
--- NOTE | 2022-09-24 05:35 | ER ---
Nurse's Notes [facility] Name: Nikki Jaramillo Age: 57 yrs Sex: Female : 1965 Arrival Date: 09/24/2022 Time: 03:38 Bed 3 Private MD: Diagnosis: COPD/ Chronic obstructive pulmonary disease with (acute) exacerbation;Acute and chronic respiratory failure with hypercapnia;Acute and chronic respiratory failure with hypoxia Presentation: 09/24 03:54 Chief complaint: EMS states: Pt reports having COPD exacerbation since yesterday. she jb4 was 80% on RA. We gave a breathing treatment of 2 albuterol and 1 atrovent. 125 of solumedrol. and 4mg of zofran. She had wheezes bilaterally and they are now diminished. Coronavirus screen: congestion, cough unrelated to allergies, difficulty breathing, Client presents with at least one sign or symptom that may indicate coronavirus-19. Standard/surgical mask placed on the client. Provider contacted for isolation considerations. Ebola Screen: No symptoms or risks identified at this time. 03:54 Method Of Arrival: EMS: [facility] jb4 04:08 Initial Sepsis Screen: Does the patient meet any 2 criteria? No. Patient's initial jb4 sepsis screen is negative. Does the patient have a suspected source of infection? Yes: Productive cough/pneumonia. Risk Assessment: Do you want to hurt yourself or someone else? Patient reports no desire to harm self or others. Onset of symptoms was September 23, 2022. Transition of care: patient was not received from another setting of care. 04:08 Acuity: BOBBY 2 jb4 Historical: - Allergies: 04:08 No Known Allergies; jb4 - PMHx: 04:08 Asthma; COPD; Diabetes - NIDDM; Diverticulitis; jb4 - Immunization history:: Adult Immunizations unknown. - Social history:: Smoking status: unknown. Screenin:40 Abuse screen: Denies threats or abuse. Denies injuries from another. Nutritional db screening: No deficits noted. Tuberculosis screening: No symptoms or risk factors identified. Fall Risk None identified. No fall in past 12 months (0 pts). No secondary diagnosis (0 pts). IV access (20 points). Ambulatory Aid- None/Bed Rest/Nurse Assist (0 pts). Gait- Normal/Bed Rest/Wheelchair (0 pts) Mental Status- Oriented to own ability (0 pts). Total Taylor Fall Scale indicates No Risk (0-24 pts). Assessment: 04:00 General: Appears distressed, uncomfortable, ill, obese, Behavior is cooperative, jb4 anxious. Pain: Denies pain. Neuro: Level of Consciousness is awake, alert, obeys commands, Oriented to person, place, time, situation. Cardiovascular: Patient's skin is warm and dry. Respiratory: Airway is patent Respiratory effort is even, labored, Respiratory pattern is symmetrical, tachypnea. GI: Abdomen is round obese. : No signs and/or symptoms were reported regarding the genitourinary system. EENT: No signs and/or symptoms were reported regarding the EENT system. Derm: Skin is intact, Skin is pink, warm \T\ dry. 05:00 Reassessment: Patient appears in no apparent distress at this time. Patient and/or jb4 family updated on plan of care and expected duration. Pain level reassessed. Patient is alert, oriented x 3, equal unlabored respirations, skin warm/dry/pink. 06:00 Reassessment: Patient appears in no apparent distress at this time. Patient and/or jb4 family updated on plan of care and expected duration. Pain level reassessed. Patient is alert, oriented x 3, equal unlabored respirations, skin warm/dry/pink. 07:39 Reassessment: Patient and/or family updated on plan of care and expected duration. Pain db level reassessed. Patient is alert, oriented x 3, equal unlabored respirations, skin warm/dry/pink. patient on bipap resting comfortably. Respiratory: Airway is patent Respiratory effort is even, Respiratory pattern is regular, symmetrical, Patient placed on BiPAP:. 22:47 General: [phone] Antione- Son. . jb4 Vital Signs: 03:54 BP 100 / 47; Pulse 77; Resp 19; Temp 97.7(TE); Pulse Ox 96% on Non-rebreather mask; jb4 Weight 147.42 kg (R); 05:20 Resp 24 S; la1 06:30 BP 95 / 59; Pulse 76; Resp 22; Pulse Ox 95% on BiPAP; jb4 07:38 BP 118 / 64; Pulse 73; Resp 23; Temp 97.8(TE); Pulse Ox 92% on BiPAP; db ED Course: 03:38 Patient arrived in ED. wm 03:39 Carina Springer MD is Attending Physician. sd2 03:54 Ed Philip, MICHELA is Primary Nurse. jb4 04:08 Triage completed. jb4 04:09 Arm band placed on right wrist. jb4 04:36 Inserted saline lock: 18 gauge in right antecubital area, using aseptic technique. jb4 Blood collected. 04:36 Initial lab(s) drawn, by me, sent to lab. Second set of blood cultures drawn by me. jb4 04:46 XRAY Chest (1 view) In Process Unspecified. EDMS 05:33 Mau Santillan MD is Hospitalizing Provider. sd2 05:40 EKG done, by ED staff, reviewed by Carina Springer MD. rv1 05:41 Patient has correct armband on for positive identification. Placed in gown. Bed in low rv1 position. Call light in reach. Side rails up X2. Adult w/ patient. monitoring manager on. Pulse ox on. NIBP on. 07:41 Patient admitted, IV remains in place. db 07:41 No provider procedures requiring assistance completed. db 12:31 Attending Physician role handed off by Carina Springer MD fady 12:31 Harpreet Pierce MD is Attending Physician. fady 12:45 Michelle cath inserted, using sterile technique, 16 Fr., by mt, balloon inflated, to kc6 gravity drainage, clamped. Administered Medications: 04:10 Drug: Albuterol 10 mg {Note: Administered by RT.} Route: Inhalation; jb4 08:14 Follow up: Response: No adverse reaction db 04:56 Drug: LevaQUIN (levofloxacin) 750 mg Route: IVPB; Site: right forearm; jb4 04:56 Drug: NS 0.9% 500 ml Route: IV; Rate: bolus; Site: right forearm; jb4 07:29 Follow up: Response: No adverse reaction; IV Status: Completed infusion; IV Intake: db 500ml 06:50 Drug: Magnesium Sulfate 1 grams Route: IVPB; Infused Over: 1 hrs; Site: right forearm; jb4 08:14 Follow up: Response: No adverse reaction; IV Status: Completed infusion; IV Intake: db 100ml 06:50 Drug: Tamiflu (oseltamivir) 75 mg Route: PO; jb4 07:29 Follow up: Response: No adverse reaction db 08:14 Follow up: Response: No adverse reaction db 12:35 Drug: SOLU-Medrol (methylPrednisoLONE) 125 mg Route: IVP; Site: right antecubital; db 12:36 Drug: Xopenex (levalbuterol) 3.75 mg Route: Inhalation; db 12:36 Drug: AtroVENT (ipratropium) Aerosol 0.5 mg Route: Inhalation; db 13:00 Drug: Magnesium Sulfate 1 grams Route: IVPB; Infused Over: 1 hrs; Site: right db antecubital; 13:00 Drug: Phenergan (promethazine) 12.5 mg Route: IVP; Site: right antecubital; db 13:00 Drug: Pepcid (famotidine) 20 mg Route: IVP; Site: right antecubital; db 13:13 Not Given (Other Intervention Used): Zofran (Ondansetron) 4 mg IVP once; over 2 minutes jd3 Medication: 07:41 VIS not applicable for this client. db Intake: 07:29 IV: 500ml; Total: 500ml. db 08:14 IV: 100ml; Total: 600ml. db Outcome: 05:34 Decision to Hospitalize by Provider. sd2 07:41 Admitted to Tele db 07:41 Condition: stable 07:41 Instructed on the need for admit. 09/25 19:57 Patient left the ED. as6 Signatures: Dispatcher [employer] EDHarpreet Krishnamurthy MD MD cha Bryson, James RN RN jb4 Betty Patterson Ashby, RN RN as6 Carina Springer MD MD sd2 Fe Cortes RN RN kc6 Kavitha Calle RN RN db Maricel Peña rvCelio Blackwell RN jd3 Corrections: (The following items were deleted from the chart) 09/24 13:07 13:00 Zofran (Ondansetron) 4 mg IVP in right antecubital db db
--- NOTE | 2022-09-24 05:36 | EDPHYS ---
Physician Documentation [facility] Name: Nikki Jaramillo Age: 57 yrs Sex: Female : 1965 Arrival Date: 09/24/2022 Time: 03:38 Bed 3 Private MD: ED Physician Harpreet Pierce HPI: 09/24 04:01 This 57 yrs old Female presents to ER via Unassigned with complaints of COPD sd2 Exacerbation. 04:01 57 yo F presents via EMS with CC of COPD exacerbation. Reports worsening SOB since sd2 yesterday with cough productive of green sputum and post-tussive emesis. Denies sick contacts or fevers. Has been using home inhalers without relief. Hypoxic with EMS and placed on NRB. Pt given 2 albuterol, 1 atrovent, 125 of Solumedrol and 4 of Zofran prior to arrival. . Historical: - Allergies: 04:08 No Known Allergies; jb4 - PMHx: 04:08 Asthma; COPD; Diabetes - NIDDM; Diverticulitis; jb4 - Immunization history:: Adult Immunizations unknown. - Social history:: Smoking status: unknown. ROS: 04:01 Constitutional: Negative for fever, chills, and weight loss, Eyes: Negative for injury, sd2 pain, redness, and discharge, Cardiovascular: Negative for chest pain, palpitations, and edema. 04:01 : Negative for dysuria, urinary frequency, hesitancy, urgency and hematuria. MS/Extremity: Negative for injury and deformity, Skin: Negative for injury, rash, and discoloration, Neuro: Negative for headache, numbness and tingling. 04:01 Respiratory: Positive for cough, dyspnea on exertion, shortness of breath, wheezing. 04:01 Abdomen/GI: Positive for nausea and vomiting, Negative for abdominal pain, diarrhea. Exam: 04:01 Constitutional: This is a well developed, well nourished patient who is awake, alert, sd2 and in respiratory distress. Head/Face: Normocephalic, atraumatic. Eyes: EOMI, normal conjunctiva bilaterally Chest/axilla: Normal chest wall appearance and motion. Nontender with no deformity. Cardiovascular: Regular rate and rhythm with a normal S1 and S2. No gallops, murmurs, or rubs. 2+ distal pulses. Respiratory: Diminished BS bilaterally with increased WOB and subcostal and supraclavicular retractions, tachypneic Abdomen/GI: Soft, non-tender, with normal bowel sounds. No guarding or rebound. No evidence of tenderness throughout. Skin: Warm, dry with normal turgor. Normal color with no rashes, no lesions, and no evidence of cellulitis. MS/ Extremity: Pulses equal, no cyanosis. Neurovascular intact. Full, normal range of motion. Ambulatory without difficulty. Psych: Awake, alert, with orientation to person, place and time. Behavior, mood, and affect are within normal limits. 06:07 ECG was reviewed by the Attending Physician. NSR, rate 73, no STEMI criteria, sd2 nonspecific ST-T wave abnormalities present Vital Signs: 03:54 BP 100 / 47; Pulse 77; Resp 19; Temp 97.7(TE); Pulse Ox 96% on Non-rebreather mask; jb4 Weight 147.42 kg (R); 05:20 Resp 24 S; la1 06:30 BP 95 / 59; Pulse 76; Resp 22; Pulse Ox 95% on BiPAP; jb4 07:38 BP 118 / 64; Pulse 73; Resp 23; Temp 97.8(TE); Pulse Ox 92% on BiPAP; db MDM: 03:39 Patient medically screened. sd2 04:01 Differential Diagnosis Differential diagnosis includes but is not limited to: ACS, sd2 DVT/PE, pneumothorax, dissection, musculoskeletal, anxiety, anemia, electrolyte abnormality, pneumonia, CHF, COPD among others. Data reviewed: vital signs, nurses notes, EMS record. 05:28 Data reviewed: lab test result(s), EKG, radiologic studies. Counseling: I had a sd2 detailed discussion with the patient and/or guardian regarding: the historical points, exam findings, and any diagnostic results supporting the discharge/admit diagnosis, lab results, radiology results, the need for further work-up and treatment in the hospital. ED course: labs and imaging reviewed. XR with possible early infiltrate. Blood cultures drawn and IV antibiotics given. Lactate WNL. Pt with significant improvement in WOB on BIPAP and exhibited hypercapnic hypoxic respiratory failure on ABG. pt to be admitted for further management at this time. . 09/24 03:57 Order name: CBC with Diff; Complete Time: 05:40 sd2 09/24 03:57 Order name: CMP; Complete Time: 05:20 sd2 09/24 03:57 Order name: Magnesium; Complete Time: 05:20 il2 09/24 03:57 Order name: Troponin High Sensitivity; Complete Time: 05:20 sd2 09/24 03:57 Order name: BNP; Complete Time: 05:20 sd2 09/24 03:57 Order name: Procalcitonin; Complete Time: 05:40 il2 09/24 03:57 Order name: Blood Culture Adult (2) [facility] 09/24 03:57 Order name: Lactate w/ 2H reflex if indic.; Complete Time: 05:20 il2 09/24 03:57 Order name: COVID-19/FLU A+B; Complete Time: 05:40 il2 09/24 04:07 Order name: ABG; Complete Time: 05:07 banner 09/24 04:52 Order name: Manual Differential; Complete Time: 05:40 EDMS 09/24 13:30 Order name: ABG Arterial Blood Gas; Complete Time: 17:33 EDMS 09/24 16:53 Order name: ABG Arterial Blood Gas; Complete Time: 17:33 EDMS 09/24 19:47 Order name: ABG Arterial Blood Gas EDMS 09/24 03:57 Order name: XRAY Chest (1 view) [facility] 09/24 03:57 Order name: BIPAP [facility] 09/24 08:52 Order name: CT; Complete Time: 12:11 EDMS 09/24 12:34 Order name: BIPAP [facility] 09/24 22:54 Order name: ABG Arterial Blood Gas EDMS 09/25 01:17 Order name: ABG Arterial Blood Gas EDMS 09/25 02:46 Order name: CBC with Automated Diff EDMS 09/25 03:25 Order name: Basic Metabolic Panel EDMS 09/25 03:40 Order name: Hemoglobin A1c EDMS 09/25 06:29 Order name: ABG Arterial Blood Gas EDMS 09/25 08:25 Order name: Glucose, Ancillary Testing EDMS 09/25 12:23 Order name: ABG Arterial Blood Gas EDMS 09/25 12:42 Order name: Glucose, Ancillary Testing EDMS 09/25 17:33 Order name: Glucose, Ancillary Testing EDMS 09/24 03:57 Order name: EKG - Nurse/Tech; Complete Time: 05:40 sd2 09/24 12:34 Order name: Viviana; Complete Time: 12:45 fady Administered Medications: 04:10 Drug: Albuterol 10 mg {Note: Administered by RT.} Route: Inhalation; jb4 08:14 Follow up: Response: No adverse reaction db 04:56 Drug: LevaQUIN (levofloxacin) 750 mg Route: IVPB; Site: right forearm; jb4 04:56 Drug: NS 0.9% 500 ml Route: IV; Rate: bolus; Site: right forearm; jb4 07:29 Follow up: Response: No adverse reaction; IV Status: Completed infusion; IV Intake: db 500ml 06:50 Drug: Magnesium Sulfate 1 grams Route: IVPB; Infused Over: 1 hrs; Site: right forearm; jb4 08:14 Follow up: Response: No adverse reaction; IV Status: Completed infusion; IV Intake: db 100ml 06:50 Drug: Tamiflu (oseltamivir) 75 mg Route: PO; jb4 07:29 Follow up: Response: No adverse reaction db 08:14 Follow up: Response: No adverse reaction db 12:35 Drug: SOLU-Medrol (methylPrednisoLONE) 125 mg Route: IVP; Site: right antecubital; db 12:36 Drug: Xopenex (levalbuterol) 3.75 mg Route: Inhalation; db 12:36 Drug: AtroVENT (ipratropium) Aerosol 0.5 mg Route: Inhalation; db 13:00 Drug: Magnesium Sulfate 1 grams Route: IVPB; Infused Over: 1 hrs; Site: right db antecubital; 13:00 Drug: Phenergan (promethazine) 12.5 mg Route: IVP; Site: right antecubital; db 13:00 Drug: Pepcid (famotidine) 20 mg Route: IVP; Site: right antecubital; db 13:13 Not Given (Other Intervention Used): Zofran (Ondansetron) 4 mg IVP once; over 2 minutes jd3 Disposition: 06:08 Chart complete. sd2 Disposition Summary: 09/24/22 05:34 Hospitalization Ordered Hospitalization Status: Inpatient Admission sd2 Provider: Mau Santillan Condition: Stable sd2 Problem: an acute exacerbation sd2 Symptoms: have improved sd2 Bed/Room Type: Standard sd2 Location: Intensive Care Unit(09/25/22 18:41) dw Room Assignment: 8-(09/25/22 19:22) cg Diagnosis - COPD/ Chronic obstructive pulmonary disease with (acute) exacerbation sd2 - Acute and chronic respiratory failure with hypercapnia sd2 - Acute and chronic respiratory failure with hypoxia sd2 Forms: - Medication Reconciliation Form sd2 - SBAR form sd2 Signatures: Dispatcher [employer] EDChelsea Orozco RN RN dw Harpreet Pierce MD MD cha Attema, Lee, FNP-C DANIEL-Cla1 Lou Salazar RN RN cg Ed Philip RN RN jb4 Carina Springer MD MD sd2 Kavitha Calle RN RN db Celio Back RN jd3 Corrections: (The following items were deleted from the chart) 05:53 05:34 Telemetry/MedSurg (Inpatient) sd2 cg 05:53 05:34 sd2 cg 09/25 18:41 09/24 05:53 [facility] ER HOLD cg 09/25 18:41 09/24 05:53 ERHOLD- cg 09/25 19:22 18:41 3- dw cg
[2022-09-24] MEDS ORDERED: MAGNESIUM SULFATE 1 gm IVPB 1 GM/100 ML BAG IV ONE ×2 (06:43→12:52)
[2022-09-24] MEDS ORDERED: OSELTAMIVIR 75 MG CAP ONE ×2 (06:43→23:03)
--- NOTE | 2022-09-24 08:52 | RAD REPORT ---
EXAM DESCRIPTION: CT - Chest Angio - 09/24/2022 7:10 am CLINICAL HISTORY: Chest pain. dyspnea, R/O PE, bacterial pneumonia COMPARISON: Chest For Pe Angio dated 12/28/2016 TECHNIQUE: CT angiogram of the pulmonary arteries was performed with MIP. All CT scans are performed using dose optimization technique as appropriate and may include automated exposure control or mA/KV adjustment according to patient size. FINDINGS: No evidence of pulmonary thromboembolism. No acute aortic finding demonstrated. Mild linear opacities in both lung bases likely represent atelectasis. No significant pericardial or pleural fluid. No concerning bony finding. Fatty liver. IMPRESSION: No evidence of pulmonary thromboembolism. Airspace opacities in both lung bases favored to represent subsegmental atelectasis.
[2022-09-24] MEDS ORDERED: ALBUTEROL 2.5 MG/3 ML NEB SOL NEB PRN (10:59)
[2022-09-24] MEDS ORDERED: BENZONATATE 100 MG CAP PO PRN (10:59)
[2022-09-24] MEDS ORDERED: ONDANSETRON 4 MG/2 ML VIAL IV PRN (10:59)
[2022-09-24] MEDS: METHYLPREDNISOLONE 40 MG INJ IV SCH ×2 (11:30→17:00)
[2022-09-24] MEDS: ENOXAPARIN 40 MG/0.4 ML SQ SCH (12:00)
[2022-09-24] MEDS: DULERA 200/5 (MOMETASONE/FORMOTEROL) INHALER IH SCH ×2 (12:00→21:00)
[2022-09-24] MEDS ORDERED: RSI MEDICATION KIT IV ONE (12:16)
[2022-09-24] MEDS ORDERED: MIDAZOLAM HCL 2 MG/2 ML INJ ONE (12:16)
[2022-09-24] MEDS ORDERED: METHYLPREDNISOLONE 125 MG INJ ONE (12:30)
[2022-09-24] MEDS ORDERED: IPRATROPIUM BROM 0.5MG/2.5ML ONE (12:31)
[2022-09-24] MEDS ORDERED: LEVALBUTEROL 1.25 MG/3 ML NEB ONE (12:31)
[2022-09-24] MEDS ORDERED: PROMETHAZINE INJ 25 MG/ML AMP ONE (12:52)
[2022-09-24] MEDS ORDERED: FAMOTIDINE 20 MG/2 ML VIAL IV ONE (12:53)
[2022-09-24 13:27] LABS: Blood O2 Saturation 98.8 % (92-98.5)
[2022-09-24 13:28] LABS: Arterial Blood Carboxyhemoglob 2.8 % (0-1.5); Blood Gas Oxyhemoglobin 94.7 % (94-97)
[2022-09-24 16:48] LABS: Blood Gas Oxyhemoglobin 86.8 % (94-97); Blood O2 Saturation 89.9 % (92-98.5)
[2022-09-24 16:49] LABS: Arterial Blood Carboxyhemoglob 2.2 % (0-1.5)
[2022-09-24 19:45] LABS: Arterial Blood Carboxyhemoglob 1.9 % (0-1.5); Blood Gas Oxyhemoglobin 86.7 % (94-97); Blood O2 Saturation 89.5 % (92-98.5)
[2022-09-24] MEDS: OSELTAMIVIR 75 MG CAP PO SCH (21:00)
[2022-09-24 22:53] LABS: Arterial Blood Carboxyhemoglob 1.4 % (0-1.5); Blood Gas Oxyhemoglobin 91.8 % (94-97); Blood O2 Saturation 94.2 % (92-98.5)
[2022-09-24] MEDS ORDERED: METHYLPREDNISOLONE 40 MG INJ ONE (23:03)
[2022-09-25] MEDS: METHYLPREDNISOLONE 40 MG INJ IV SCH ×2 (01:00→10:00)
[2022-09-25 01:16] LABS: Blood Gas Oxyhemoglobin 87.6 % (94-97); Blood O2 Saturation 89.8 % (92-98.5)
[2022-09-25 01:17] LABS: Arterial Blood Carboxyhemoglob 1.3 % (0-1.5)
[2022-09-25] MEDS ORDERED: OSELTAMIVIR 75 MG CAP PO ONE (01:36)
[2022-09-25] MEDS ORDERED: OSELTAMIVIR 75 MG CAP ONE ×3 (02:43→19:41)
[2022-09-25 02:46] LABS: Absolute Lymphocytes (CBC) 0.5 K/uL (0.7-4.9); Lymphocytes % 5.3 % (15.3-44.8); MCV 95.1 fL (80-100); MPV 8.6 fL (7.6-11.3); RBC Red Blood Cell Count 4.94 M/uL (3.86-4.86)
[2022-09-25 03:02] LABS: Potassium 4.9 mmol/L (3.5-5.1)
[2022-09-25 06:28] LABS: Arterial Blood Carboxyhemoglob 1.2 % (0-1.5); Blood Gas Oxyhemoglobin 87.9 % (94-97); Blood O2 Saturation 90.2 % (92-98.5)
[2022-09-25 07:27] VITALS: BMI 54.6
[2022-09-25] MEDS ORDERED: GLUCAGON 1 MG/VIAL IM PRN (08:44)
[2022-09-25] MEDS ORDERED: D50W 25 GM/50 ML SYRINGE IV PRN (08:44)
[2022-09-25] MEDS ORDERED: DEXTROSE 10%-WATER 125 ML IV PRN (08:47)
[2022-09-25] MEDS ORDERED: CEFTRIAXONE 1,000 MG in NA CHLORIDE 0.9% 50 ML IVPB SCH (09:00)
[2022-09-25] MEDS ORDERED: AZITHROMYCIN IV 500 MG in NA CHLORIDE 0.9% 250 ML IVPB SCH (09:00)
[2022-09-25] MEDS ORDERED: NA CHLORIDE 0.9% 50 ML IV ONE (09:26)
[2022-09-25] MEDS ORDERED: ENOXAPARIN 40 MG/0.4 ML SQ ONE (09:26)
[2022-09-25] MEDS ORDERED: METHYLPREDNISOLONE 40 MG INJ ONE (09:26)
[2022-09-25] MEDS ORDERED: NA CHLORIDE 0.9% 250 ML ONE (09:26)
[2022-09-25] MEDS ORDERED: AZITHROMYCIN 500 MG INJ IVPB ONE (09:26)
[2022-09-25] MEDS ORDERED: CEFTRIAXONE 1000 MG/VIAL ONE (09:26)
[2022-09-25] MEDS: OSELTAMIVIR 75 MG CAP PO SCH ×2 (10:00→19:47)
[2022-09-25] MEDS: DULERA 200/5 (MOMETASONE/FORMOTEROL) INHALER IH SCH ×2 (10:00→21:05)
[2022-09-25] MEDS: ENOXAPARIN 40 MG/0.4 ML SQ SCH (10:00)
--- NOTE | 2022-09-25 10:08 | P.PN ---
Subjective Date of Service: 09/25/22 Chief Complaint: Sepsis, pneumonia, COPD exacerbation Overnight, her serial ABGs have revealed persistent hypercapnia and respiratory acidosis. Despite the lab findings, her mental status appears in tact. She is alert and oriented x 4 to person, place, time, and situation. Per discussion with overnight RN, there was concern that the BiPAP mask may not have been maintaining a tight seal. Review of Systems 10-point ROS is otherwise unremarkable Respiratory: Cough, Dry, Shortness of Breath Physical Examination - Vital Signs Temperature: 98.6 F Blood Pressure: 104/56 Pulse: 61 Respirations: 19 Pulse Ox (%): 93 - Physical Exam General: Alert, Oriented x3, Mild distress HEENT: Atraumatic, PERRLA, EOMI, Sclerae nonicteric Neck: Supple Respiratory: Diminished, Rhonchi/gurgles Cardiovascular: No edema, Regular rate/rhythm, Normal S1 S2, No gallops, No rubs, No murmurs Capillary refill: <2 Seconds Gastrointestinal: Normal bowel sounds, Soft and benign, Non-distended, No tenderness, No rebound, No guarding Musculoskeletal: No clubbing Integumentary: No rashes Neurological: Normal speech, Cranial nerves 3-12 intact, Normal affect - Studies Microbiology Data (last 24 hrs): 09/24/22 04:29 Blood - Blood Anaerobic Blood Culture - Final Assessment And Plan - Plan # Acute on Chronic Hypoxemic, Hypercapnic Respiratory Failure suspect due to Acute Chronic Obstructive Pulmonary Disease Exacerbation possibly caused by Influenza A Infection Currently, she is on BiPAP, with improvement of her SpO2 readings to 93 %. - Evaluation thus far: - Procalcitonin = <0.05 - Respiratory Pathogen panel = positive for Influenza A - Most recent ABG = pH 7.24, PCO2 82.9, PO2 63.0 - CT chest angiogram = "no evidence of pulmonary thromboembolism. Airspace opacities in both lung bases favored to represent subsegmental atelectasis." - Management plan: - Consulted Pulmonary Medicine and spoke with Dr. Ortiz - recommendations appreciated - Appreciate assistance with ventilator settings - Bronchodilators and steroids per Pulm - Consulted Respiratory Therapy - Supplemental oxygen to maintain SpO2 > 92% - Continue empiric ceftriaxone + azithromycin - PRN benzonatate, guaifenesin - Encouraged incentive spirometry # Severe Viral Sepsis likely secondary to Influenza A She met criteria based on RR > 20 breaths/min and WBC > 12,000 and the identified source is influenza. Severe sepsis is suspected due to concern for tissue hypoperfusion/organ dysfunction based on acute respiratory failure requiring BiPAP . - Sepsis order set was initiated - Initial Lactate was 1.7 - Blood cultures drawn before - Broad spectrum empiric antibiotics started: Ceftriaxone + Azithromycin - In regards to fluids: - 30 mL/kg of IV fluids was not administered given SBP > 90, MAP > 65, lactic acid < 4 # Hyperglycemia in Type II Diabetes Mellitus - Hgb A1c = 6.4 % - Correction scale insulin Mau Santillan M.D.
[2022-09-25] MEDS ORDERED: guaiFENesin 100 MG/5 ML UCUP PO PRN (10:12)
[2022-09-25 12:18] LABS: Arterial Blood Carboxyhemoglob 0.9 % (0-1.5); Blood Gas Oxyhemoglobin 93.6 % (94-97); Blood O2 Saturation 95.6 % (92-98.5)
[2022-09-25] MEDS: INSULIN -REGULAR HUMAN 50 UNIT/0.5 ML ML SQ SCH ×3 (12:30→21:00)
--- NOTE | 2022-09-25 12:43 | P.CNS ---
Date of Consult: 09/25/22 Reason for Consult: Respiratory failure Chief Complaint: Sepsis, pneumonia, COPD exacerbation History of Present Illness: Patient is 57 years of age with a history of COPD active smoker pno-igcjrgo-eydlfejiu diabetes mellitus admitted with dyspnea fever chills last couple of days she is doctors in [facility] and by by EMS is currently on BiPAP doing very well Allergies No Known Drug Allergies Allergy (Verified 12/28/16 06:00) Unknown No Known Allergies Allergy (Uncoded 12/28/16 05:58) Unknown Home Medications: Potassium Chloride [Klor-Con M10] 20 meq PO DAILY 05/18/15 Albuterol Sulfate [Proair Hfa] 8.5 gm IH TID PRN #1 hfa.aer.[email or web address] 12/30/16 Fluticasone/Salmeterol [Advair 250/50 Diskus*] 1 puff IH BID #1 disk 12/30/16 Rosuvastatin Calcium 10 mg PO DAILY 10/22/19 Furosemide 40 mg PO 1X 09/24/22 Ipratropium/Albuterol Sulfate [Combivent Respimat 20-100 Mcg] 1 puff LEÓN PRN PRN 09/24/22 Meloxicam 15 mg PO 1X 09/24/22 Metformin HCl [Metformin HCl ER] 750 mg PO BID 09/24/22 Metoprolol Succinate 50 mg PO DAILY 09/24/22 Umeclidinium Jones [Incruse Ellipta] 62.5 mcg PRN PRN 09/24/22 - Past Medical/Surgical History Diabetic: Yes -: Diabetes mellitus type 2 -: Hypertension -: History of CVA -: COPD -: Tobacco abuse -: Obesity -: Right ankle surgery -: Bilateral knee surgery -: Right shoulder surgery -: 3 previous C-sections Psychosocial/ Personal History: She is single, has 3 children. She does not work. - Family History Father Medical History: Heart disease Notes: heart attack Mother Medical History: Heart disease, Diabetes, Cancer Brother Medical History: Diabetes - Social History Smoking Status: Current every day smoker Alcohol use: No CD- Drugs: No Caffeine use: Yes Place of Residence: Home Physical Examination Temp Pulse Resp BP Pulse Ox 98.6 F 64 18 119/78 96 09/25/22 11:00 09/25/22 11:00 09/25/22 11:00 09/25/22 11:00 09/25/22 11:00 General: Alert, Oriented x3 Neck: Supple Respiratory: Diminished Cardiovascular: No edema, Normal pulses, Regular rate/rhythm Gastrointestinal: Soft and benign - Problems (1) COPD exacerbation Current Visit: Yes Status: Acute Plan: Patient is a 57 years of age active smoker admitted with COPD exacerbation hypoxic hypercapnic respiratory failure currently doing well DC BiPAP change to nasal cannula advance diet labs reviewed CT pulmonary angiogram is negative for pulmonary embolism and pneumonia COPD changes patient is compliant with Advair and Incruse at home 2 over to p.o. prednisone cefuroxime has underlying obstructive sleep apnea morbidly obese will need to be evaluated in outpatient with pulmonary function test go home with the same inhalers low-dose prednisone and may be some Zithromax influenza A positive
[2022-09-25] MEDS ORDERED: IPRATROPIUM BROM 0.5MG/2.5ML ONE (13:23)
[2022-09-25] MEDS ORDERED: ALBUTEROL 2.5 MG/3 ML NEB SOL ONE (13:23)
[2022-09-25] MEDS: ALBUTEROL 2.5 MG/3 ML NEB SOL NEB SCH ×2 (14:00→20:40)
[2022-09-25] MEDS: IPRATROPIUM BROM 0.5MG/2.5ML NEB PRN ×2 (14:40→20:40)
--- NOTE | 2022-09-25 15:27 | RAD REPORT ---
EXAM DESCRIPTION: XR Chest, 1 View CLINICAL HISTORY: The patient is 57 years old and is Female; SOB TECHNIQUE: Single view of the chest. COMPARISON: No relevant prior studies available. FINDINGS: Limitations: Evaluation limited by body habitus and portable technique. Lungs: Bibasilar airspace opacities, left greater than right. No pulmonary vascular congestion. Pleural space: No significant pleural fluid. No pneumothorax. Heart: The cardiac silhouette is enlarged versus artifact of AP technique. Mediastinum: Unremarkable. Bones/joints: No acute fracture visualized. Upper abdomen: No free air in the visualized upper abdomen. IMPRESSION: Bibasilar airspace opacities, left greater than right. This may be secondary to subsegme ntal atelectasis or early infiltrate on the left. Electronically signed by: Carina Deluca MD 09/24/2022 4:53 AM FARM SPECIALIST Due to temporary technical issues with the PACS/Fluency reporting system, reports are being signed by the in house radiologists without review as a courtesy to insure prompt reporting. The interpreting radiologist is fully responsible for the content of the report.
--- NOTE | 2022-09-25 15:32 | EKG ---
Test Date: 2022-09-24 Test Time: 05:36:27 Lpc: MARY MEASUREMENT RESULTS: Intervals: Rate: 73 MS: 148 QRSD: 86 QT: 364 QTc: 401 Embarrass: P: 64 MS: 148 QRS: 33 T: 84 INTERPRETIVE STATEMENTS: Normal sinus rhythm Nonspecific ST and T wave abnormality Abnormal ECG Compared to ECG 12/03/2018 16:03:29 ST (T wave) deviation now present Electronically Signed On 09-25-22 15:28:59 [employer] EDUC[employer] SPECIALIST by Asad Anthony
[2022-09-25] MEDS ORDERED: CEFUROXIME 250 MG TAB ONE (19:39)
[2022-09-25] MEDS: CEFUROXIME 250 MG TAB PO SCH (19:46)
[2022-09-25] MEDS: METFORMIN HCL 750 MG PO SCH (21:00)
[2022-09-25] MEDS: ROSUVASTATIN 10 MG TAB PO SCH (21:06)
[2022-09-25] MEDS: predniSONE 20 MG TAB PO SCH (21:06)
[2022-09-25] MEDS: ACETAMINOPHEN 325 MG TABLET PO PRN (22:22)
[2022-09-25 22:49] LABS: Blood Gas Oxyhemoglobin 90.1 % (94-97); Blood O2 Saturation 92.2 % (92-98.5)
[2022-09-26] MEDS: IPRATROPIUM BROM 0.5MG/2.5ML NEB PRN ×2 (02:00→22:30)
[2022-09-26] MEDS: ALBUTEROL 2.5 MG/3 ML NEB SOL NEB SCH ×4 (02:00→19:20)
[2022-09-26 04:47] LABS: Absolute Lymphocytes (CBC) 1.1 K/uL (0.7-4.9); Hematocrit 44.7 % (36.0-45.0); Lymphocytes % 11.5 % (15.3-44.8); MCV 94.3 fL (80-100); RBC Red Blood Cell Count 4.74 M/uL (3.86-4.86)
[2022-09-26 04:58] LABS: Potassium 4.7 mmol/L (3.5-5.1)
[2022-09-26] MEDS: INSULIN -REGULAR HUMAN 50 UNIT/0.5 ML ML SQ SCH ×4 (07:30→20:46)
[2022-09-26] MEDS: METFORMIN HCL 750 MG PO SCH ×2 (09:00→20:36)
[2022-09-26] MEDS ORDERED: HOME MED 1 EA UNK (Rosuvastatin Calcium [Rosuvastatin Calcium] 5 MG Tablet) PO SCH (09:00)
[2022-09-26] MEDS: CEFUROXIME 250 MG TAB PO SCH ×2 (09:24→20:34)
[2022-09-26] MEDS: OSELTAMIVIR 75 MG CAP PO SCH ×2 (09:24→20:36)
[2022-09-26] MEDS: ENOXAPARIN 40 MG/0.4 ML SQ SCH (09:24)
[2022-09-26] MEDS: DULERA 200/5 (MOMETASONE/FORMOTEROL) INHALER IH SCH ×2 (09:24→20:34)
[2022-09-26] MEDS: predniSONE 20 MG TAB PO SCH ×2 (09:25→20:34)
[2022-09-26] MEDS: METOPROLOL XL 50 MG TAB PO SCH (09:25)
[2022-09-26] MEDS ORDERED: ALPRAZOLAM 0.25 MG TABLET PO PRN (11:07)
--- NOTE | 2022-09-26 12:18 | P.PN ---
Subjective Date of Service: 09/26/22 Chief Complaint: Respiratory failure COPD exacerbation Subjective: Improving (Patient is doing much better alert responsive cooperative hemodynamically stable) Review of Systems General: Weakness Respiratory: Shortness of Breath Physical Examination - Vital Signs Temperature: 97 F Blood Pressure: 126/74 Pulse: 68 Respirations: 19 Pulse Ox (%): 94 - Physical Exam General: Alert, Oriented x3 Respiratory: Diminished Cardiovascular: No edema, Normal pulses, Regular rate/rhythm, Normal S1 S2 - Studies Microbiology Data (last 24 hrs): 09/24/22 04:32 Blood - Blood Anaerobic Blood Culture - Final Assessment And Plan - Current Problems (Diagnosis) (1) COPD exacerbation Current Visit: Yes Status: Acute Plan: Patient is 57 years of age admitted with COPD exacerbation wean off BiPAP titrate O2 to a sat of 90% labs reviewed white count is normal DC Michelle catheter labs reviewed qualify for home O2 plan for discharge influenza A positive Physician Review: Patient Assessed, Agree with Above Assessment and Plan
[2022-09-26] MEDS: ACETAMINOPHEN 325 MG TABLET PO PRN (12:56)
--- NOTE | 2022-09-26 17:24 | P.PN ---
Subjective Date of Service: 09/26/22 Chief Complaint: Respiratory failure COPD exacerbation Overnight, her ABG has demonstrated improvement in her acidosis and hypercapnia. This morning, she states that she feels that her breathing has improved significantly. She is eager to remove the BiPAP mask. We will try to wean her off of BiPAP today. If she does well, we can downgrade her out of the ICU this afternoon or tomorrow morning. Review of Systems 10-point ROS is otherwise unremarkable Respiratory: Cough, Shortness of Breath (improving) Physical Examination - Vital Signs Temperature: 97.0 F Blood Pressure: 114/77 Pulse: 62 Respirations: 19 Pulse Ox (%): 96 - Studies Microbiology Data (last 24 hrs): 09/24/22 04:32 Blood - Blood Anaerobic Blood Culture - Final Assessment And Plan - Plan - Physical Exam General: Alert, Oriented x3, No distress HEENT: Atraumatic, PERRLA, EOMI, Sclerae nonicteric Neck: Supple Respiratory: Diminished, Rhonchi/gurgles (improving) Cardiovascular: No edema, Regular rate/rhythm, Normal S1 S2, No gallops, No rubs, No murmurs Capillary refill: <2 Seconds Gastrointestinal: Normal bowel sounds, Soft and benign, Non-distended, No tenderness, No rebound, No guarding Musculoskeletal: No clubbing Integumentary: No rashes Neurological: Normal speech, Cranial nerves 3-12 intact, Normal affect # Acute on Chronic Hypoxemic, Hypercapnic Respiratory Failure suspect due to Acute Chronic Obstructive Pulmonary Disease Exacerbation possibly caused by Influenza A Infection Currently, she is on BiPAP, with improvement of her SpO2 readings to 96 %. - Evaluation thus far: - Procalcitonin = <0.05 - Respiratory Pathogen panel = positive for Influenza A - Most recent ABG = pH 7.24, PCO2 82.9, PO2 63.0 - CT chest angiogram = "no evidence of pulmonary thromboembolism. Airspace opacities in both lung bases favored to represent subsegmental atelectasis." - Management plan: - Consulted Pulmonary Medicine and spoke with Dr. Ortiz - recommendations appreciated - Appreciate assistance with BiPAP settings - Bronchodilators and steroids per Pulm - Consulted Respiratory Therapy - Supplemental oxygen to maintain SpO2 > 92% - Continue empiric ceftriaxone + azithromycin - PRN benzonatate, guaifenesin - Encouraged incentive spirometry - Will attempt to wean BiPAP today and downgrade out of ICU if she continues to improve # Severe Viral Sepsis likely secondary to Influenza A She met criteria based on RR > 20 breaths/min and WBC > 12,000 and the identified source is influenza. Severe sepsis is suspected due to concern for tissue hypoperfusion/organ dysfunction based on acute respiratory failure requiring BiPAP . - Sepsis order set was initiated - Initial Lactate was 1.7 - Blood cultures drawn before - Broad spectrum empiric antibiotics started: Ceftriaxone + Azithromycin - In regards to fluids: - 30 mL/kg of IV fluids was not administered given SBP > 90, MAP > 65, lactic acid < 4 # Hyperglycemia in Type II Diabetes Mellitus - Hgb A1c = 6.4 % - Correction scale insulin Mau Santillan M.D.
[2022-09-26] MEDS: ROSUVASTATIN 10 MG TAB PO SCH (20:34)
[2022-09-27] MEDS: ALBUTEROL 2.5 MG/3 ML NEB SOL NEB SCH ×5 (01:20→19:55)
[2022-09-27 05:11] LABS: Absolute Lymphocytes (CBC) 1.1 K/uL (0.7-4.9); Hematocrit 45.7 % (36.0-45.0); Lymphocytes % 13.4 % (15.3-44.8); MCV 94.2 fL (80-100); MPV 8.4 fL (7.6-11.3); RBC Red Blood Cell Count 4.85 M/uL (3.86-4.86)
[2022-09-27 05:43] LABS: Potassium 4.5 mmol/L (3.5-5.1)
[2022-09-27] MEDS: INSULIN -REGULAR HUMAN 50 UNIT/0.5 ML ML SQ SCH ×4 (07:30→21:00)
[2022-09-27] MEDS: DULERA 200/5 (MOMETASONE/FORMOTEROL) INHALER IH SCH ×2 (08:10→22:05)
[2022-09-27] MEDS: METOPROLOL XL 50 MG TAB PO SCH (08:11)
[2022-09-27] MEDS: predniSONE 20 MG TAB PO SCH ×2 (08:11→22:05)
[2022-09-27] MEDS: OSELTAMIVIR 75 MG CAP PO SCH ×2 (08:11→22:06)
[2022-09-27] MEDS: CEFUROXIME 250 MG TAB PO SCH ×2 (08:11→21:00)
[2022-09-27] MEDS: METFORMIN HCL 750 MG PO SCH ×2 (08:11→21:00)
[2022-09-27] MEDS: ENOXAPARIN 40 MG/0.4 ML SQ SCH (08:11)
--- NOTE | 2022-09-27 08:58 | RAD REPORT ---
EXAM DESCRIPTION: RAD - Chest Single View - 09/27/2022 6:42 am CLINICAL HISTORY: follow-up Chest pain. COMPARISON: Chest Single View dated 09/24/2022; Chest Pa And Lat (2 Views) dated 12/29/2016; Chest Si ngle View dated 12/28/2016; CHEST SINGLE VIEW dated 05/19/2015; Chest Angio dated 09/24/2022 FINDINGS: Portable technique limits examination quality. Moderate bilateral pulmonary opacities are present, appearing unchanged since 09/24/2022 study. The h eart is moderately enlarged. No displaced fractures. IMPRESSION: Stable chest since 09/24/2022 study.
[2022-09-27] MEDS: ACETAMINOPHEN 325 MG TABLET PO PRN (09:51)
--- NOTE | 2022-09-27 14:36 | P.PN ---
Subjective Date of Service: 09/27/22 Chief Complaint: Respiratory failure COPD exacerbation No acute events overnight. She reports that her breathing has significantly improved. She was weaned off of BiPAP yesterday. Will down-grade her to Med/Surg status. She denies any chest pain or palpitations. Review of Systems 10-point ROS is otherwise unremarkable Respiratory: Cough, Dry, Shortness of Breath (mild) Physical Examination - Vital Signs Temperature: 97.4 F Blood Pressure: 128/85 Pulse: 58 Respirations: 19 Pulse Ox (%): 95 (4 L) Assessment And Plan - Plan - Physical Exam General: Alert, Oriented x3, No distress HEENT: Atraumatic, PERRLA, EOMI, Sclerae nonicteric Neck: Supple Respiratory: Diminished, Faint rhonchi noted Cardiovascular: No edema, Regular rate/rhythm, Normal S1 S2, No gallops, No rubs, No murmurs Capillary refill: <2 Seconds Gastrointestinal: Normal bowel sounds, Soft and benign, Non-distended, No tenderness, No rebound, No guarding Musculoskeletal: No clubbing Integumentary: No rashes Neurological: Normal speech, Cranial nerves 3-12 intact, Normal affect # Acute on Chronic Hypoxemic, Hypercapnic Respiratory Failure suspect due to Acute Chronic Obstructive Pulmonary Disease Exacerbation possibly caused by Influenza A Infection Currently, she is on 4 L nasal cannula, with improvement of her SpO2 readings to 95 %. - Evaluation thus far: - Procalcitonin = <0.05 - Respiratory Pathogen panel = positive for Influenza A - Most recent ABG (09/25) = pH 7.32, PCO2 58.5, PO2 65.4 - CT chest angiogram = "no evidence of pulmonary thromboembolism. Airspace opacities in both lung bases favored to represent subsegmental atelectasis." - Management plan: - Consulted Pulmonary Medicine and spoke with Dr. Ortiz - recommendations appreciated - Bronchodilators and steroids per Pulm - Consulted Respiratory Therapy - Supplemental oxygen to maintain SpO2 > 92% - Continue empiric ceftriaxone + azithromycin - PRN benzonatate, guaifenesin - Encouraged incentive spirometry - Downgrade from ICU to Med/Surg - Home oxygen testing today - Consulted PT to see if she would benefit from Home Health services - Repeat chest x-ray this morning # Severe Viral Sepsis likely secondary to Influenza A She met criteria based on RR > 20 breaths/min and WBC > 12,000 and the identified source is influenza. Severe sepsis is suspected due to concern for tissue hypoperfusion/organ dysfunction based on acute respiratory failure requiring BiPAP . - Sepsis order set was initiated - Initial Lactate was 1.7 - Blood cultures drawn before - Broad spectrum empiric antibiotics started: Ceftriaxone + Azithromycin - In regards to fluids: - 30 mL/kg of IV fluids was not administered given SBP > 90, MAP > 65, lactic acid < 4 # Hyperglycemia in Type II Diabetes Mellitus - Hgb A1c = 6.4 % - Correction scale insulin Mau Santillan M.D.
[2022-09-27] MEDS: IPRATROPIUM BROM 0.5MG/2.5ML NEB PRN (19:55)
[2022-09-27] MEDS: ROSUVASTATIN 10 MG TAB PO SCH (22:05)
[2022-09-28] MEDS: IPRATROPIUM BROM 0.5MG/2.5ML NEB PRN (01:06)
[2022-09-28] MEDS: ALBUTEROL 2.5 MG/3 ML NEB SOL NEB SCH ×2 (01:06→07:44)
[2022-09-28 03:23] VITALS: O2SAT 97
[2022-09-28] MEDS: INSULIN -REGULAR HUMAN 50 UNIT/0.5 ML ML SQ SCH (07:30)
--- NOTE | 2022-09-28 08:14 | P.DS ---
Admission Date: 09/24/22 Discharge Date: 09/28/22 Disposition: DC HOME/HOME HEALTH CARE Discharge Condition: GOOD Reason for Admission: Respiratory failure COPD exacerbation Consultations: 1. Pulmonary Medicine Hospital Course: DIAGNOSES: # Acute on Chronic Hypoxemic, Hypercapnic Respiratory Failure suspect due to Acute Chronic Obstructive Pulmonary Disease Exacerbation possibly caused by Influenza A Infection # Severe Viral Sepsis likely secondary to Influenza A # Hyperglycemia in Type II Diabetes Mellitus HOSPITAL COURSE: Ms. Nikki Jaramillo is a pleasant 57 year old female with a past medical history significant for chronic obstructive pulmonary disease and type 2 diabetes mellitus who was admitted to the [facility] on for shortness of breath. She was admitted to the Medicine service. Upon further evaluation, she was found to have acute on chronic hypoxemic, hypercapnic respiratory failure thought to be secondary to an acute COPD exacerbation with superimposed influenza A infection. A CT chest angiogram revealed, "no evidence of pulmonary thromboembolism. Airspace opacities in both lung bases favored to represent subsegmental atelectasis." She required BiPAP and was admitted to the ICU for further treatment. She was started on oseltamivir, steroids, bronchodilators, and empiric antibiotics, and over the course of her hospitalization, she was gradually weaned off of BiPAP. She was down-graded out of the ICU and did well. Despite improvement in her symptoms, we were unable to wean her off of oxygen. She was evaluated for home oxygen, and qualified for it. With the assistance of case management, this was arranged for her. This morning she felt significantly better and requested discharge home. I spoke with Dr. Ortiz, who has cleared her for discharge with outpatient follow-up. On 09/28/2022, she was seen on morning rounds and deemed medically stable for discharge. She was discharged with instructions to schedule follow-up appointments with her PCP (Dr. Evans) and with Pulmonology (Dr. Ortiz). She was provided prescriptions for cefuroxime, benzonatate, prednisone, and oseltamivir. She was given the opportunity to ask questions and reported no further questions. Furthermore, all questions were answered to the best of my ability. A copy of this discharge summary will be sent to the above providers to facilitate continuity of care. Today, I personally spent 25 minutes on her case, of which greater than 50% of the time was spent in patient education, counseling, and coordination of care as described above. - Physical Exam General: Alert, Oriented x3, No distress HEENT: Atraumatic, PERRLA, EOMI, Sclerae nonicteric Neck: Supple Respiratory: Diminished, but clear to ausculation bilaterally, without wheezes, rhonchi, or rales Cardiovascular: No edema, Regular rate/rhythm, Normal S1 S2, No gallops, No rubs, No murmurs Capillary refill: <2 Seconds Gastrointestinal: Normal bowel sounds, Soft and benign, Non-distended, No tenderness, No rebound, No guarding Musculoskeletal: No clubbing Integumentary: No rashes Neurological: Normal speech, Cranial nerves 3-12 intact, Normal affect Vital Signs/Physical Exam: Temp Pulse Resp BP Pulse Ox 97.4 F 64 19 126/67 96 09/28/22 04:00 09/28/22 04:00 09/28/22 04:00 09/28/22 04:00 09/28/22 04:00 Laboratory Data at Discharge: WBC 7.90 K/uL (4.3-10.9) 09/27/22 04:35 Hgb 14.7 g/dL (12.0-15.0) 09/27/22 04:35 Hct 45.7 % (36.0-45.0) H 09/27/22 04:35 Plt Count 235 K/uL (152-406) 09/27/22 04:35 Sodium 139 mmol/L (136-145) 09/27/22 04:35 Potassium 4.5 mmol/L (3.5-5.1) 09/27/22 04:35 BUN 15 mg/dL (7-18) 09/27/22 04:35 Creatinine 0.64 mg/dL (0.55-1.3) 09/27/22 04:35 Glucose 165 mg/dL (74-106) H 09/27/22 04:35 Magnesium 1.7 mg/dL (1.8-2.4) L 09/24/22 04:37 Total Bilirubin 1.0 mg/dL (0.2-1.0) 09/24/22 04:37 AST 26 U/L (15-37) 09/24/22 04:37 ALT 35 U/L (12-78) 09/24/22 04:37 Alkaline Phosphatase 79 U/L (45-117) 09/24/22 04:37 Home Medications: RX: Potassium Chloride [Klor-Con M10] 20 meq PO DAILY 05/18/15 RX: Albuterol Sulfate [Proair Hfa] 8.5 gm IH TID PRN #1 hfa.aer.ad 12/30/16 RX: Fluticasone/Salmeterol [Advair 250/50 Diskus*] 1 puff IH BID #1 disk 12/30/16 RX: Rosuvastatin Calcium 10 mg PO DAILY 10/22/19 RX: Furosemide 40 mg PO 1X 09/24/22 RX: Ipratropium/Albuterol Sulfate [Combivent Respimat 20-100 Mcg] 1 puff LEÓN PRN PRN 09/24/22 RX: Meloxicam 15 mg PO 1X 09/24/22 RX: Metformin HCl [Metformin HCl ER] 750 mg PO BID 09/24/22 RX: Metoprolol Succinate 50 mg PO DAILY 09/24/22 RX: Umeclidinium Reydon [Incruse Ellipta] 62.5 mcg PRN PRN 09/24/22 RX: Benzonatate [Tessalon Perle*] 100 mg PO TID PRN 7 Days #20 cap 09/28/22 RX: Cefuroxime [Ceftin*] 500 mg PO BID 5 Days #20 tab 09/28/22 RX: Oseltamivir [Tamiflu*] 75 mg PO BID 1 Days #2 cap 09/28/22 RX: predniSONE [Prednisone*] 20 mg PO BID 3 Days #6 tab 09/28/22 New Medications: RX: Cefuroxime [Ceftin*] 500 mg PO BID 5 Days #20 tab RX: predniSONE [Prednisone*] 20 mg PO BID 3 Days #6 tab RX: Oseltamivir [Tamiflu*] 75 mg PO BID 1 Days #2 cap RX: Benzonatate [Tessalon Perle*] 100 mg PO TID PRN 7 Days #20 cap PRN Reason: Cough Physician Discharge Instructions: 1. Please call and schedule a follow-up appointment with your PCP (Dr. Evans) in 3-5 days 2. Please call and schedule a follow-up appointment with Pulmonary Medicine (Dr. Ortiz) in 5-7 days Followup: Lizandro Ortiz MD [ACTIVE - CAN ADMIT] - AGNES EVANS [OUTSIDE PHYSICIAN] - Time spent managing pt's care (in minutes): 25
[2022-09-28 08:27] VITALS: BP 137/63; TEMP 97.1
[2022-09-28] MEDS: METFORMIN HCL 750 MG PO SCH (09:00)
[2022-09-28] MEDS: METOPROLOL XL 50 MG TAB PO SCH (10:30)
[2022-09-28] MEDS: ENOXAPARIN 40 MG/0.4 ML SQ SCH (10:30)
[2022-09-28] MEDS: OSELTAMIVIR 75 MG CAP PO SCH (10:30)
[2022-09-28] MEDS: CEFUROXIME 250 MG TAB PO SCH (10:31)
[2022-09-28] MEDS: DULERA 200/5 (MOMETASONE/FORMOTEROL) INHALER IH SCH (10:31)
[2022-09-28] MEDS: predniSONE 20 MG TAB PO SCH (10:31)
== END 2022-09-28 11:30 | disposition home health service (06) | DRG 871 ==
LOC: ER 03:36 → ERHOLD 05:03 → 3RD-ICU 09-25 19:34 → 4TH 09-27 12:08
PROVIDERS: ADMIT Internal Medicine; ATTEND Internal Medicine
PROC: 5A09357 Assistance with Respiratory Ventilation, Less than 24 Consecutive Hours, Continuous Positive Airway Pressure (ICD-10-PCS; principal; 2022-09-24)
DX: A41.89 Other specified sepsis (principal); J96.01 Acute respiratory failure with hypoxia; J96.02 Acute respiratory failure with hypercapnia; J44.1 Chronic obstructive pulmonary disease with (acute) exacerbation; E87.20 Acidosis, unspecified; Z68.43 Body mass index [BMI] 50.0-59.9, adult; R65.20 Severe sepsis without septic shock; E66.01 Morbid (severe) obesity due to excess calories; I10 Essential (primary) hypertension; E11.65 Type 2 diabetes mellitus with hyperglycemia; G47.33 Obstructive sleep apnea (adult) (pediatric); J10.1 Influenza due to other identified influenza virus with other respiratory manifestations; F17.200 Nicotine dependence, unspecified, uncomplicated; Z86.73 Personal history of transient ischemic attack (TIA), and cerebral infarction without residual deficits; Z79.52 Long term (current) use of systemic steroids; Z79.84 Long term (current) use of oral hypoglycemic drugs; Z79.899 Other long term (current) drug therapy; Z20.822 Contact with and (suspected) exposure to COVID-19
CPT/HCPCS: 0240U; 36415; 51702; 71045; 71275; 80048; 80053; 82805; 82947; 83036; 83605; 83735; 83880; 84145; 84484; 85025; 87040; 87070; 87205; 93005; 94010; 94640; 94660; 94760; 97116; 97161; 99285; J0456; J1650; J1815; J2250; J2405; J2550; J2920; J2930; J3475; J3535; J7040; J7050; J7512; J7613; J7614; J7644; Q9967

== ENCOUNTER 2023-10-03 19:13 | Inpatient (IN) | payer OTHER ==
--- OUTSIDE RECORDS SUMMARY | 2023-10-03 19:37 | XMS REPORT | Continuity of Care Document ---
:1965 Author Organization [facility] t Address [address] [place] [address] [place] [id number] Care Team Providers Name Role Phone No, Pcp [facility] Primary Care Physician Unavailable GORGE Attending Clinician Unavailable SHAMSEBaldo, NGUYỄN-RENATA ROSENBAUM-AHMED Attending Clinician Unavail able GORGE Admitting Clinician Unavailable SHAMSEE, NGUYỄN-RENATA ROSENBAUM-AHMED Admitting Clinician Unavail able Payers Payer Name Policy Type Policy Number Effective Date Expiration Date S keith [place]IC[place]: [id number] 2009 eXenSa 00:00:00 [facility] [id number] 2016 [facility] (MEDICAID 00:00:00 O) MEDICARE [place]: [id number] 2009 eXenSa - 00:00:00 [facility]LY [facility] MEDICARE [place]: [id number] 2009 [place]en[place] 00:[place] [id number] [place] Problems Condition Condition Condition Status Onset Resolution Last Treating Co mments Source Name Details Category Date Date Treatment Clinician Date 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 Diabetes 3-07 da mellitus Mellitus 00:00: [facility] Hyperchole Hyperchole Problem Active [facility] sterolemia sterolemia 3-07 da 00:00: [facility] Body mass Body Mass Problem Active [place] index 30+ Index 30+ 3-07 da - obesity - Obesity 00:00: [facility]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 [facility] Essential Essential Problem Active [place] hypertensi Hypertensi 3-07 da on on 00:00: [facility] Chronic Chronic Problem Active [place] obstructiv Obstructiv 3-07 da e lung e Lung 00:00: [facility] disease Disease 00 al [facility] Osteoarthr Osteoarthr Problem Active [facility] [place] itis itis 3-07 da 00:00: [facility] Diabetes Diabetes Disease Recurre [facility] mellitus, mellitus, nce 5-16 [facility] type 2 type 2 00[facility] COPD COPD Disease Recurre [facility] (chronic (chronic nce [facility]16 [facility] obstructiv obstructiv 00:00: Me dical e e 00 Center pulmonary pulmonary disease) disease) Diverticul Diverticul Disease Active [facility] itis of itis of 5-16 [facility] colon with colon with 00:00: Al dical perforatio perforatio 00 Ce nter n n Tobacco Tobacco Disease Active [facility] use use 5[facility]16 [facility] 00[facility] Obesity Obesity Disease Active [facility] Leukocytos Leukocytos Disease Active [facility] is is 5-16 [facility] 00:[facility] 00 Center Hypomagnes Hypomagnes Disease Active [facility] emia emia 5-16 [facility] 00:[facility]: [facility] Diabetes Diabetes Disease Recurre [facility] mellitus mellitus nve [facility] Diverticul Diverticul Disease Active [facility] itis of itis of [facility] sigmoid sigmoid [facility] colon Center Allergies, Adverse Reactions, Alerts This patient has no known allergies or adverse reactions. Social History Social Habit Start Date Stop Date Quantity Comments Source History SDOH Alcohol [facility] Std Drinks [facility] History SDOH Alcohol [facility] Binge [facility] [place] History SDOH Alcohol [facility] Comment [facility] History of tobacco Smokes tobacco [facility] use [facility] Sexual orientation [facility] History SDOH Alcohol 2019-03-20 2019-03-[address] [facility] Frequency 00:00:00 00:00:00 Medical [place] Cigarettes smoked 2019-03-20 2019-03-[address] [facility] [address] Zeng current (pack per 00:00:00 00:00:00 Medical Center day) - Reported Cigarette pack-years 2019-03-20 2019-03-[address] [facility] 00:00:00 00:00:00 [facility] Alcohol intake 2019-03-20 2019-03-20 Current [facility] Boothk es 00:00:00 00:00:00 non-drinker of Medical Ce nter alcohol (finding) Sex Assigned At [birth year] [facility] tamys 00:00:00 00:00:00 [facility] Smoking Status Start Date Stop Date Source Light Tobacco Smoker [facility] Current every day smoker 2019-03-20 00:00:00 [facility] Medications Ordered Filled Start Stop Current Ordering Indication Dosage Frequency Signature Comments Components Source Medication Medication Date Date Medication? Clinician (SIG) Name Name furosemide Yes 40mg QD Take [address] (LASIX) 40 5-20 by mouth [facility] MG tablet 12:07: daily. Medica l 23 [place] metFORMIN Yes 750mg Take [address] [...] MG tablet 12:07: daily. Medica l 23 [place] rosuvastati Yes 5mg QD Take [address] n (CRESTOR) 5-20 by mouth Luke s 5 MG tablet 12:07: daily. Medi yomi 23 [place] metoprolol Yes 50mg QD Take [address] (TOPROL-XL) 5-20 by mouth Luke s 50 MG 24 hr 12:07: daily. Medi yomi tablet 23 [place] fluticasone Yes 2{puff} QD Inhale [address] propion-bianka 5-20 puffs by Luke s meterol 12:07: mouth via Medic al (ADVAIR) 23 inhaler Center 250-50 daily. mcg/dose diskus inhaler ipratropium 2019 Yes 2{puff} Q.25D Inhale [address] /albuterol 5-20 puffs by [facility] sulfate 12:07: mouth via Medic al (COMBIVENT 23 inhaler 4 Cent er INHL) (four) times daily. furosemide Yes 40mg QD Take [address] (LASIX) 40 5-20 by mouth [facility] MG tablet 12:07: daily. Medica l 23 [place] metFORMIN Yes 750mg Take [address] [...] MG tablet 12:07: daily. Medica l 23 [place] rosuvastati Yes 5mg QD Take [address] n (CRESTOR) 5-20 by mouth Luke s 5 MG tablet 12:07: daily. Medi yomi 23 Center metoprolol Yes 50mg QD Take [address] (TOPROL-XL) 5-20 by mouth [facility] 50 MG 24 hr 12:07: daily. Medi yomi tablet 23 Center fluticasone Yes 2{puff} QD Inhale [address] propion-bianka 5-20 puffs by [facility] s meterol 12:07: mouth via Medic al (ADVAIR) 23 inhaler Center 250-50 daily. mcg/dose diskus inhaler ipratropium 2019 Yes 2{puff} Q.25D Inhale [address] /albuterol 5-20 puffs by [facility] sulfate 12:07: mouth via Medic al (COMBIVENT 23 inhaler 4 Cent er INHL) (four) times daily. albuterol albuterol No 2puff(s Q4H albuterol [place] sulf 90 sulf 90 ) sulf 90 da mcg/actuati mcg/actuati mcg/actuat [facility] on breath on breath ion breath al activated activated activated Health powder powder powder Outreac inhaler,sen inhaler,sen inhaler,se h sor Inhale sor Inhale nsor Pro gram 2 puffs 2 puffs Inhale 2 every 4 every 4 puffs hours by hours by every 4 inhalation inhalation hours by route. route. inhalation route. Combivent Combivent No 1puff(s QID Combivent [place] Respimat 20 Respimat 20 ) Respimat da mcg-100 mcg-100 20 mcg-100 Epi scop mcg/actuati mcg/actuati mcg/actuat al on solution on solution ion H ealth for for solution Outreac inhalation inhalation for h Inhale 1 Inhale 1 inhalation P rogram puff 4 puff 4 Inhale 1 times a day times a day puff 4 by by times a inhalation inhalation day by route. route. inhalation route. Crestor 10 Crestor 10 No 1 Q1D Crestor 10 [place] mg tablet mg tablet mg tablet da Take 1 Take 1 Take 1 [facility] tablet tablet tablet al every day every day every day Health by oral by oral by oral Outrea c route at route at route at h bedtime. bedtime. bedtime. Pro gram fluticasone fluticasone No 1puff(s BID fluticason [place] 250 250 ) e 250 da mcg-salmete mcg-salmete mcg-salmet [facility] rol 50 rol 50 wild 50 al mcg/dose mcg/dose mcg/dose Hea lth blistr blistr blistr Outreac powdr for powdr for powdr for h inhalation inhalation inhalation Program Inhale 1 Inhale 1 Inhale 1 puff twice puff twice puff twice a day by a day by a day by inhalation inhalation inhalation route. route. route. furosemide furosemide No 1 Q1D furosemide [place] 40 mg 40 mg 40 mg da tablet Take tablet Take tablet [facility] 1 tablet 1 tablet Take 1 al every day every day tablet Hea lth by oral by oral every day Outr eac route as route as by oral h needed. needed. route as Progr am needed. Klor-Con 20 Klor-Con 20 No 1 Q1D Klor-Con [place] mEq mEq 20 mEq da tablet,exte tablet,exte tablet,ext [facility] nded nded ended al release release release Health Take 1 Take 1 Take 1 Outreac tablet tablet tablet h every day every day every day Program by oral by oral by oral route. route. route. meloxicam meloxicam No 1 Q1D meloxicam [place] 15 mg 15 mg 15 mg da tablet Take tablet Take tablet [facility] 1 tablet 1 tablet Take 1 al every day every day tablet Hea lth by oral by oral every day Outr eac route. route. by oral h route. Program metformin metformin No 1 BID metformin [place] ER 750 mg ER 750 mg ER 750 mg da tablet,exte tablet,exte tablet,ext [facility] nded nded ended al release 24 release 24 release 24 Health hr Take 1 hr Take 1 hr Take 1 Outreac tablet tablet tablet h twice a day twice a day twice a Program by oral by oral day by route. route. oral route. metoprolol metoprolol No 1capsul Q1D metoprolol [place] succinate succinate e(s) succinate da ER 50 mg ER 50 mg ER 50 mg Epi scop capsule capsule capsule al sprinkle, sprinkle, sprinkle, Health ext. ext. ext. Outreac release 24 release 24 release 24 h hr Take 1 hr Take 1 hr Take 1 Program capsule capsule capsule every day every day every day by oral by oral by oral route. route. route. tramadol 50 tramadol 50 No 1 Q8H tramadol [place] mg tablet mg tablet 50 mg da Take 1 Take 1 tablet [facility] tablet tablet Take 1 al every 8 every 8 tablet Health hours by hours by every 8 Outr eac oral route oral route hours by h as needed. as needed. oral route Program as needed. Trelegy Trelegy No 1puff(s Q1D Trelegy [place] Ellipta 100 Ellipta 100 ) Ellipta da mcg-62.5 mcg-62.5 100 [facility] mcg-25 mcg mcg-25 mcg mcg-62.5 al powder for powder for mcg-25 mcg Health inhalation inhalation powder for Outreac Inhale 1 Inhale 1 inhalation h puff every puff every Inhale 1 Program day by day by puff every inhalation inhalation day by route. route. inhalation route. Trulicity Trulicity No 1.5mL Q1W Trulicity [place] 1.5 mg/0.5 1.5 mg/0.5 1.5 mg/0.5 da mL mL mL [facility] subcutaneou subcutaneou subcutaneo al s pen s pen us pen Health injector injector injector Out reac Inject 1.5 Inject 1.5 Inject 1.5 h mL every mL every mL every Pro gram week by week by week by subcutaneou subcutaneou subcutaneo s route. s route. us route. albuterol albuterol No 2puff(s Q4H albuterol [place] sulf 90 sulf 90 ) sulf 90 da mcg/actuati mcg/actuati mcg/actuat [facility] on breath on breath ion breath al activated activated activated Health powder powder powder Outreac inhaler,sen inhaler,sen inhaler,se h sor Inhale sor Inhale nsor Pro gram 2 puffs 2 puffs Inhale 2 every 4 every 4 puffs hours by hours by every 4 inhalation inhalation hours by route. route. inhalation route. Combivent Combivent No 1puff(s QID Combivent [place] Respimat 20 Respimat 20 ) Respimat da mcg-100 mcg-100 20 mcg-100 Epi scop mcg/actuati mcg/actuati mcg/actuat al on solution on solution ion H ealth for for solution Outreac inhalation inhalation for h Inhale 1 Inhale 1 inhalation P rogram puff 4 puff 4 Inhale 1 times a day times a day puff 4 by by times a inhalation inhalation day by route. route. inhalation route. Crestor 10 Crestor 10 No 1 Q1D Crestor 10 [place] mg tablet mg tablet mg tablet da Take 1 Take 1 Take 1 [facility] tablet tablet tablet al every day every day every day Health by oral by oral by oral Outrea c route at route at route at h bedtime. bedtime. bedtime. Pro gram fluticasone fluticasone No 1puff(s BID fluticason [place] 250 250 ) e 250 da mcg-salmete mcg-salmete mcg-salmet [facility] rol 50 rol 50 wild 50 al mcg/dose mcg/dose mcg/dose Hea lth blistr blistr blistr Outreac powdr for powdr for powdr for h inhalation inhalation inhalation Program Inhale 1 Inhale 1 Inhale 1 puff twice puff twice puff twice a day by a day by a day by inhalation inhalation inhalation route. route. route. furosemide furosemide No 1 Q1D furosemide [place] 40 mg 40 mg 40 mg da tablet Take tablet Take tablet [facility] 1 tablet 1 tablet Take 1 al every day every day tablet Hea lth by oral by oral every day Outr eac route as route as by oral h needed. needed. route as Progr am needed. Klor-Con 20 Klor-Con 20 No 1 Q1D Klor-Con [place] mEq mEq 20 mEq da tablet,exte tablet,exte tablet,ext [facility] nded nded ended al release release release Health Take 1 Take 1 Take 1 Outreac tablet tablet tablet h every day every day every day Program by oral by oral by oral route. route. route. meloxicam meloxicam No 1 Q1D meloxicam [place] 15 mg 15 mg 15 mg da tablet Take tablet Take tablet [facility] 1 tablet 1 tablet Take 1 al every day every day tablet Hea lth by oral by oral every day Outr eac route. route. by oral h route. Program metformin metformin No 1 BID metformin [place] ER 750 mg ER 750 mg ER 750 mg da tablet,exte tablet,exte tablet,ext [facility] nded nded ended al release 24 release 24 release 24 Health hr Take 1 hr Take 1 hr Take 1 Outreac tablet tablet tablet h twice a day twice a day twice a Program by oral by oral day by route. route. oral route. metoprolol metoprolol No 1capsul Q1D metoprolol [place] succinate succinate e(s) succinate da ER 50 mg ER 50 mg ER 50 mg Epi scop capsule capsule capsule al sprinkle, sprinkle, sprinkle, Health ext. ext. ext. Outreac release 24 release 24 release 24 h hr Take 1 hr Take 1 hr Take 1 Program capsule capsule capsule every day every day every day by oral by oral by oral route. route. route. tramadol 50 tramadol 50 No 1 Q8H tramadol [place] mg tablet mg tablet 50 mg da Take 1 Take 1 tablet [facility] tablet tablet Take 1 al every 8 every 8 tablet Health hours by hours by every 8 Outr eac oral route oral route hours by h as needed. as needed. oral route Program as needed. Trelegy Trelegy No 1puff(s Q1D Trelegy [place] Ellipta 100 Ellipta 100 ) Ellipta da mcg-62.5 mcg-62.5 100 [facility] mcg-25 mcg mcg-25 mcg mcg-62.5 al powder for powder for mcg-25 mcg Health inhalation inhalation powder for Outreac Inhale 1 Inhale 1 inhalation h puff every puff every Inhale 1 Program day by day by puff every inhalation inhalation day by route. route. inhalation route. Trulicity Trulicity No 1.5mL Q1W Trulicity [place] 1.5 mg/0.5 1.5 mg/0.5 1.5 mg/0.5 da mL mL mL [facility] subcutaneou subcutaneou subcutaneo al s pen s pen us pen Health injector injector injector Out reac Inject 1.5 Inject 1.5 Inject 1.5 h mL every mL every mL every Pro gram week by week by week by subcutaneou subcutaneou subcutaneo s route. s route. us route. Vital Signs Vital Name Observation Time Observation Value Comments Source BP Diastolic 2023-01-09 00:00:00 85 mm[Hg] [facility] Height 2023-01-09 00:00:00 63 [in_i] [facility] BMI (Body Mass 2023-01-09 00:00:00 53.7 kg/m2 [facility] Index) Health Outreach Program BP Systolic 2023-01-09 00:00:00 152 mm[Hg] [facility] Body Weight 2023-01-09 00:00:00 4851.2 [facility]_av[facility] Procedures Procedure Date / Time Performed Performing Clinician Sourc e MAMMO, screening, 2023-01-09 00:00:00 [place] [facility] digital, bilateral Health Outrea Program Complete Repair of [place] Epi scopal Rotator Cuff [facility] Section [facility] Knee Surgery [facility] Ankle Surgery [facility] Plan of Care Planned Activity Planned Date Details Comments Source Diagnostic Test 2023-01-09 CMP, serum or [facility] Pending 00:00:00 plasma [code = Health Outrea ch CMP, serum or Program plasma] Diagnostic Test 2023-01-09 CBC w/ auto diff [place] [facility] Pending 00:00:00 [code = CBC w/ Health Outrea ch auto diff] Program Diagnostic Test 2023-01-09 lipid panel, serum [place] stopper maker helper [facility] Pending 00:00:00 [code = lipid Health Outreac h panel, serum] Program Diagnostic Test 2023-01-09 TSH + free T4, [place] [facility] Pending 00:00:00 serum [code = TSH Health Out reach + free T4, serum] Program Diagnostic Test 2023-01-09 HbA1c (hemoglobin [place] [facility] Pending 00:00:00 A1c), blood [code Health Out reach = HbA1c Program (hemoglobin A1c), blood] Encounters Start End Encounter Admission Attending Care Care Encounter Source Date/Time Date/Time Type Type Clinicians Facility Department ID 2023-10-02 2023-10-02 Outpatient SFA SFA [id number] Rajan 09:22:03 09:22:03 [id number] F Nixon 2023-05-15 2023-05-15 Outpatient SFA SFA [id number] Rajan 13:56:43 13:56:43 [id number] F Nixon 2023-04-24 2023-04-24 Outpatient SFA SFA [id number] Rajan 13:17:29 13:17:29 [id number] F Nixon 2023-04-08 2023-04-08 Outpatient [facility] [id number] [place] 00:00:00 00:00:00 K [id number] [facility] 2023-04-08 2023-04-08 Outpatient [facility] 122 [place] 00:00:00 00:00:00 K [id number] da [facility] 2023-02-08 2023-02-08 Outpatient [facility] [id number] [place] 00:00:00 00:00:00 K [id number] da [facility] 2023-01-09 2023-01-09 Outpatient [facility] [id number] [place] 00:00:00 00:00:00 K [id number] da [facility] 2023-01-09 2023-01-09 Filipe Naranjo [facility] [place] - [id number] M [facility] 00:00:00 00:00:00 Jelena Redmond da DO: [id number] Buddhist [facility] [address] [facility] [facility] a [place] [facility] Outreac [id number] Bridgette , Ph. Program 2023-01-05 2023-01-05 Outpatient [facility]AN[facility] [id number] [place] 00:00:00 00:00:00 K [id number] da [facility] 2022-12-05 2022-12-05 Outpatient [facility]ATHAN[facility]LILY [facility] [id number] [place] 00:00:00 00:00:00 K [id number] da [facility] 2022-12-05 2022-12-05 Outpatient [facility] [id number] [place] 00:00:00 00:00:00 K [id number] da [facility] 2022-12-05 2022-12-05 Outpatient [facility]AN[facility] [id number] [place] 00:00:00 00:00:00 K [id number] da [facility] 2022-12-05 2022-12-05 Outpatient [facility]ATH[facility]LILY [facility] 122 [id number] [place] 00:00:00 00:00:00 K [id number] da [facility] Results Test Description Test Time Test Comments Results Result Comments Source Free T4 and TSH panel - Serum or Plasma 2023-01-10 00:00:00 Test Item Value Reference Range Interpretation Comme nts Thyrotropin [Units/volume] in Serum or Plasma by 1.010 uIU/mL 0.450 -4.500 Detection limit <= 0.005 mIU/L (test code = 71628-5) Thyroxine (T4) free [Mass/volume] in Serum or Plasma 1.39 NG/dL 0 .82-1.77 (test code = 3024-7) [facility] Program[facility] 2000 panel - Serum or [id number] 00:00:00 Test Item Value Reference Range Interpretation Comments Glucose [Mass/volume] in Serum 111 mg/dL 70-99 H or Plasma (test code = 2345-7) Urea nitrogen [Mass/volume] in 9 mg/dL 6-24 Serum or Plasma (test code = 3094-0) Creatinine [Mass/volume] in 0.74 mg/dL 0.57-1.00 Serum or Plasma (test code = 2160-0) Glomerular filtration 93 mL/min/1.73 >59 rate/1.73 sq M.predicted [Volume Rate/Area] in Serum, Plasma or Blood by Creatinine-based formula (CKD-EPI 2020) (test code = 70657-5) Urea nitrogen/Creatinine [Mass 12 9-23 Ratio] in Serum or Plasma (test code = 3097-3) Sodium [Moles/volume] in Serum 141 mmol/L 134-144 or Plasma (test code = 2951-2) Potassium [Moles/volume] in 4.6 mmol/L 3.5-5.2 Serum or Plasma (test code = 2823-3) Chloride [Moles/volume] in 100 mmol/L 96-106 Serum or Plasma (test code = 5-0) Carbon dioxide, total 21 mmol/L 20-29 [Moles/volume] in Serum or Plasma (test code = 2027-9) Calcium [Mass/volume] in Serum 10.1 mg/dL 8.7-10.2 or Plasma (test code = 56743-6) Protein [Mass/volume] in Serum 6.6 g/dL 6.0-8.5 or Plasma (test code = 2885-2) Albumin [Mass/volume] in Serum 4.5 g/dL 3.8-4.9 or Plasma (test code = 1751-7) Globulin [Mass/volume] in 2.1 g/dL 1.5-4.5 Serum by calculation (test code = 05945-2) Albumin/Globulin [Mass Ratio] 2.1 1.2-2.2 in Serum or Plasma (test code = 1759-0) Bilirubin.total [Mass/volume] 1.1 mg/dL 0.0-1.2 in Serum or Plasma (test code = 1974-2) Alkaline phosphatase 87 IU/L 44-121 [Enzymatic activity/volume] in Serum or Plasma (test code = 6768-6) Aspartate aminotransferase 17 IU/L 0-40 [Enzymatic activity/volume] in Serum or Plasma (test code = 1920-8) Alanine aminotransferase 15 IU/L 0-32 [Enzymatic activity/volume] in Serum or Plasma (test code = 1742-6) [facility] - Serum or Plasma 2023-01-10 00:00:00 Test Item Value Reference Range Interpretation Comments Cholesterol [Mass/volume] in Serum 111 mg/dL 100-199 or Plasma (test code = 2093-3) Triglyceride [Mass/volume] in Serum 124 mg/dL 0-149 or Plasma (test code = 2571-8) Cholesterol in HDL [Mass/volume] in 50 mg/dL >39 Serum or Plasma (test code = 2085-9) Cholesterol in VLDL [Mass/volume] 22 mg/dL 5-40 in Serum or Plasma by calculation (test code = 57440-1) Cholesterol in LDL [Mass/volume] in 39 mg/dL 0-99 Serum or Plasma by calculation (test code = 29246-9) Laboratory comment [Text] in Report block splitter operator Narrative (test code = 66632-9) [facility]/Hemoglobin.total in [id number] 00:00:00 Test Item Value Reference Range Interpretation Comments Hemoglobin A1c/Hemoglobin.total in 6.2 % 4.8-5.6 H Blood (test code = 4548-4) [facility] Auto Differential panel - Blood 2023-01-09 00:00:00 Test Item Value Reference Range Interpretation Comments Leukocytes [#/volume] in Blood 14.9 x10e3/uL 3.4-10.8 H by Automated count (test code = 6690-2) Erythrocytes [#/volume] in 5.14 x10e6/uL 3.77-5.28 Blood by Automated count (test code = 789-8) Hemoglobin [Mass/volume] in 15.8 g/dL 11.1-15.9 Blood (test code = 718-7) Hematocrit [Volume Fraction] of 47.4 % 34.0-46.6 H Blood by Automated count (test code = 4544-3) Erythrocyte mean corpuscular 92 fL 79-97 volume [Entitic volume] by Automated count (test code = 787-2) Erythrocyte mean corpuscular 30.7 pg 26.6-33.0 hemoglobin [Entitic mass] by Automated count (test code = 785-6) Erythrocyte mean corpuscular 33.3 g/dL 31.5-35.7 hemoglobin concentration [Mass/volume] by Automated count (test code = 786-4) Erythrocyte distribution width 14.4 % 11.7-15.4 [Ratio] by Automated count (test code = 788-0) Platelets [#/volume] in Blood 263 x10e3/uL 150-450 by Automated count (test code = 777-3) Neutrophils/100 leukocytes in 68 % not estab. Blood by Automated count (test code = 770-8) Lymphocytes/100 leukocytes in 23 % not estab. Blood by Automated count (test code = 736-9) Monocytes/100 leukocytes in 5 % not estab. Blood by Automated count (test code = 5905-5) Eosinophils/100 leukocytes in 2 % not estab. Blood by Automated count (test code = 713-8) Basophils/100 leukocytes in 1 % not estab. Blood by Automated count (test code = 706-2) immature cells (test code = block splitter operator immature cells) Neutrophils [#/volume] in Blood 10.3 x10e3/uL 1.4-7.0 H by Automated count (test code = 751-8) Lymphocytes [#/volume] in Blood 3.4 x10e3/uL 0.7-3.1 H by Automated count (test code = 731-0) Monocytes [#/volume] in Blood 0.8 x10e3/uL 0.1-0.9 by Automated count (test code = 742-7) Eosinophils [#/volume] in Blood 0.3 x10e3/uL 0.0-0.4 by Automated count (test code = 711-2) Basophils [#/volume] in Blood 0.1 x10e3/uL 0.0-0.2 by Automated count (test code = 704-7) Immature granulocytes/100 1 % not estab. leukocytes in Blood by Automated count (test code = 90393-4) Immature granulocytes 0.1 x10e3/uL 0.0-0.1 [#/volume] in Blood by Automated count (test code = 76981-0) Nucleated erythrocytes/100 block splitter operator leukocytes [Ratio] in Blood by Automated count (test code = 38363-3) Morphology [Interpretation] in block splitter operator Blood Narrative (test code = 21510-0) [facility] [id number] 08:01:00 Test Item Value Reference Range Interpretation Comments CULTURE (BEAKER) (test No growth in 5 days code = 1095) BLOOD [id number] 08:01:00 Test Item Value Reference Range Interpretation Comments CULTURE (BEAKER) (test No growth in 5 days code = 1095) POCT-GLUCOSE [id number] 08:21:00 Test Item Value Reference Range Interpretation Comments POC-GLUCOSE METER 193 mg/dL 70-110 H TESTED AT [place] [address] ([facility]) (test code = [facility] 1538) [id number] POCT-GLUCOSE [id number] 22:28:00 Test Item Value Reference Range Interpretation Comments POC-GLUCOSE METER 134 mg/dL 70-110 H TESTED AT [place] [address] ([facility]) (test code = [facility] 1538) [id number] POCT-GLUCOSE [id number] 17:09:00 Test Item Value Reference Range Interpretation Comments POC-GLUCOSE METER 109 mg/dL 70-110 TESTED AT [place] [address] ([facility]) (test code = [facility] 1538) [id number] POCT-GLUCOSE [id number] 12:54:00 Test Item Value Reference Range Interpretation Comments POC-GLUCOSE METER 98 mg/dL 70-110 TESTED AT [place] [address] ([facility]) (test code = [facility] [address] 1538) CBC (HEMOGRAM ONLY)2019-03-23 05:37:00 Test Item Value Reference Range Interpretation Comments WHITE BLOOD CELL COUNT ([facility]) 10.5 K/ L 3.5-10.5 (test code = 775) RED BLOOD CELL COUNT ([facility]) 4.26 M/ L 3.93-5.22 (test code = 761) HEMOGLOBIN ([facility]) (test code = 12.1 GM/DL 11.2-15.7 410) HEMATOCRIT ([facility]) (test code = 38.7 % 34.1-44.9 411) MEAN CORPUSCULAR VOLUME ([facility]) 90.8 fL 79.4-94.8 (test code = 753) MEAN CORPUSCULAR HEMOGLOBIN 28.4 pg 25.6-32.2 ([facility]) (test code = 751) MEAN CORPUSCULAR HEMOGLOBIN CONC 31.3 GM/DL 32.2-35.5 L ([facility]) (test code = 752) RED CELL DISTRIBUTION WIDTH 14.5 % 11.7-14.4 H ([facility]) (test code = 412) PLATELET COUNT ([facility]) (test 339 K/CU MM 150-450 code = 756) MEAN PLATELET VOLUME ([facility]) 9.8 fL 9.4-12.3 (test code = 754) NUCLEATED RED BLOOD CELLS 0 /100 WBC 0-0 ([facility]) (test code = 413) POCT-GLUCOSE [id number] 22:36:00 Test Item Value Reference Range Interpretation Comments POC-GLUCOSE METER 102 mg/dL 70-110 TESTED AT [place] [address] ([facility]) (test code = [facility] 1538) [id number] POCT-GLUCOSE [id number] 18:00:00 Test Item Value Reference Range Interpretation Comments POC-GLUCOSE METER 101 mg/dL 70-110 TESTED AT [place] [address] ([facility]) (test code = [facility] 1538) [id number] POCT-GLUCOSE [id number] 12:35:00 Test Item Value Reference Range Interpretation Comments POC-GLUCOSE METER 98 mg/dL 70-110 TESTED AT [place] [address] ([facility]) (test code = [facility] [address] 1538) POCT-GLUCOSE [id number] 06:05:00 Test Item Value Reference Range Interpretation Comments POC-GLUCOSE METER 116 mg/dL 70-110 H TESTED AT [place] [address] ([facility]) (test code = [facility] 1538) [id number] CBC W/PLT COUNT & AUTO [id number] 05:36:00 Test Item Value Reference Range Interpretation Comments WHITE BLOOD CELL COUNT ([facility]) 11.1 K/ L 3.5-10.5 H (test code [...] H PERCENT (BEAKER) (test code = 2801) [id number] 05:35:00 Test Item Value Reference Range Interpretation Comments PHOSPHORUS (BEAKER) (test code = 2.5 mg/dL 2.3-4.7 604) [id number] 05:35:00 Test Item Value Reference Range Interpretation Comments MAGNESIUM (BEAKER) (test code = 1.7 mg/dL 1.6-2.6 627) BASIC METABOLIC [id number] 05:35:00 Test Item Value Reference Range Interpretation [...] NOT APPLICABLE FOR DIALYSIS PATIEN TS. POCT-GLUCOSE [id number] 00:38:00 Test Item Value Reference Range Interpretation Comments POC-GLUCOSE METER 106 mg/dL 70-110 TESTED AT [place] [id number] [facility] (test code = [facility] [place] 1538) [id number] POCT-GLUCOSE [id number] 17:29:00 Test Item Value Reference Range Interpretation Comments POC-GLUCOSE METER 108 mg/dL 70-[address] [facility] [address] ([facility] (test code = [facility] [place] 1538) [id number] POCT-GLUCOSE [id number] 12:50:00 Test Item Value Reference Range Interpretation Comments POC-GLUCOSE METER 120 mg/dL 70-[address] [facility] [address] ([facility] (test code = [facility] [place] 1538) [address] POCT-GLUCOSE [id number] 05:37:00 Test Item Value Reference Range Interpretation Comments POC-GLUCOSE METER 134 mg/dL 70-[address] [facility] [address] (BEAKER) (test code = [facility] [place] 1538) [address] [id number] 03:52:00 Test Item Value Reference Range Interpretation Comments PHOSPHORUS (BEAKER) (test code = 3.1 mg/dL 2.3-4.7 604) [id number] 03:52:00 Test Item Value Reference Range Interpretation Comments MAGNESIUM (BEAKER) (test code = 1.5 mg/dL 1.6-2.6 L 627) BASIC METABOLIC [id number] 03:52:00 Test Item Value Reference Range Interpretation [...] PATIEN TS. CBC W/PLT COUNT & AUTO [id number] 03:41:00 Test Item Value Reference Range Interpretation [...] 0-1 H PERCENT (BEAKER) (test code = 2808) POCT-GLUCOSE [id number] 23:23:00 Test Item Value Reference Range Interpretation Comments POC-GLUCOSE METER 114 mg/dL 70-[address] [facility] [address] (BEAKER) (test code = [facility] 1538) [id number] POCT-GLUCOSE [id number] 18:36:00 Test Item Value Reference Range Interpretation Comments POC-GLUCOSE METER 120 mg/dL 70-[address] [facility] [address] ([facility]) (test code = [facility] [place] 1538) [id number] POCT-GLUCOSE [id number] 12:40:00 Test Item Value Reference Range Interpretation Comments POC-GLUCOSE METER 129 mg/dL 70-[address] [facility] [address] ([facility]) (test code = [facility] [place] 1538) [id number] HEMOGLOBIN [id number] 09:37:00 Test Item Value Reference Range Interpretation Comments HEMOGLOBIN A1C (BEAKER) (test code = 6.2 % 4.3-6.1 H 368) TSH/FREE T4 IF [id number] 03:15:00 Test Item Value Reference Range Interpretation Comments THYROID STIMULATING HORMONE 1.19 uIU/mL 0.35-4.94 (BEAKER) (test code = 772) C-REACTIVE [id number] 03:14:00 Test Item Value Reference Range Interpretation Comments C-REACTIVE PROTEIN (BEAKER) (test 24.16 mg/dL 0.00-0.50 H code = 676) TROPONIN [id number] 02:52:00 Test Item Value Reference Range Interpretation Comments TROPONIN I (BEAKER) (test code = 397) < ng/mL 0.00-0.03 [...] 16 pg/mL 0-100 (test code = 700) [id number] 02:43:00 Test Item Value Reference Range Interpretation Comments PHOSPHORUS (BEAKER) (test code = 3.0 mg/dL 2.3-4.7 604) [id number] 02:43:00 Test Item Value Reference Range Interpretation Comments MAGNESIUM (BEAKER) (test code = 1.4 mg/dL 1.6-2.6 L 627) BASIC METABOLIC [id number] 02:43:00 Test Item Value Reference Range Interpretation [...] NOT APPLICABLE FOR DIALYSIS PATIEN TS. LIPID [id number] 02:43:00 Test Item Value Reference Range Interpretation Comments TRIGLYCERIDES (BEAKER) (test code = 76 mg/dL 540) CHOLESTEROL (BEAKER) (test code = 77 mg/dL 631) HDL CHOLESTEROL (BEAKER) (test code 40 mg/dL = 976) LDL CHOLESTEROL CALCULATED (BEAKER) 22 mg/dL (test code = 633) Triglyceride Reference Range: Low Risk <150 Borderline 150-199 High Risk 200-499 Very High Risk >=500Cholesterol Reference Range: Low Risk <200 Borderline 200-239 High Risk >240HDL Cholesterol Reference Range: Low Risk >=60 High Risk <40LDL Cholesterol Reference Range: Optimal <100 Near Optimal 100-129 Borderline 130-159 High 160-189 Very High >=190HEPATIC FUNCTION [id number] 02:43:00 Test Item Value Reference Range Interpretation [...] (test code = 13 U/L 6-55 347) CREATINE KINASE (CK)2019-03-20 02:43:00 Test Item Value Reference Range Interpretation Comments CREATINE KINASE TOTAL (BEAKER) (test 22 U/L 29-200 L code = 380) CBC W/PLT COUNT & AUTO [id number] 02:24:00 Test Item Value Reference Range Interpretation [...] H PERCENT (BEAKER) (test code = 2801) POCT-GLUCOSE [id number] 01:09:00 Test Item Value Reference Range Interpretation Comments POC-GLUCOSE METER 147 mg/dL 70-[address] [facility] [address] (BEAKER) (test code = [facility] 1538) [id number]
[2023-10-03] MEDS ORDERED: IPRATROPIUM BROM 0.5MG/2.5ML ONE (20:10)
[2023-10-03] MEDS ORDERED: ALBUTEROL 2.5 MG/3 ML NEB SOL ONE (20:10)
[2023-10-03] MEDS ORDERED: METHYLPREDNISOLONE 125 MG INJ ONE (20:10)
[2023-10-03 20:23] LABS: Absolute Lymphocytes (CBC) 1.2 K/uL (0.7-4.9); Hematocrit 44.1 % (36.0-45.0); Lymphocytes % 5.5 % (15.3-44.8); MPV 7.8 fL (7.6-11.3); Platelets 299 thou/uL (152-406)
[2023-10-03 20:25] LABS: Protime INR 1.05
[2023-10-03 20:51] LABS: Albumin 3.3 g/dL (3.4-5.0); Bilirubin Total 0.9 mg/dL (0.2-1.0); Protein, Total 6.9 g/dL (6.4-8.2)
[2023-10-03 20:53] LABS: Magnesium 1.7 mg/dL (1.6-2.4); Potassium 3.7 mEq/L (3.5-5.1)
[2023-10-03 20:54] LABS: Troponin High Sensitivity 89.9 pg/mL (<58.9)
--- NOTE | 2023-10-03 21:17 | RAD REPORT ---
EXAM DESCRIPTION: RADChest Single View10/03/2023 8:06 pm CLINICAL HISTORY: Chest pain;SOB COMPARISON: Chest Single View dated 09/27/2022; Chest Single View dated 09/24/2022; Chest Pa And Lat (2 Views) dated 12/29/2016; Chest Single View dated 12/28/2016 TECHNIQUE: Portable AP view of the chest. FINDINGS: Central interstitial prominence, and prominent central vasculature. No focal consolidation . No pneumothorax or effusion. Mild cardiomegaly. Mediastinal contours are unremarkable. IMPRESSION: Central interstitial prominence suggestive of central congestion/CHF.
--- NOTE | 2023-10-03 21:19 | RAD REPORT ---
EXAM DESCRIPTION: US - Extrem Venous W Compress Enmanuel - 10/03/2023 9:06 pm CLINICAL HISTORY: Pain COMPARISON: None. TECHNIQUE: Real-time sonographic evaluation of the bilateral lower extremity deep venous systems was performed. FINDINGS: Exam is somewhat technically limited by poor penetration. Normal compressibility, flow aug mentation, phasic flow and spontaneous flow is identified in both the left and right lower extremity deep venous systems. No intraluminal filling defects seen. IMPRESSION: No evidence of DVT in either lower extremity.
[2023-10-03 21:35] LABS: Blood Morphology Comment NOT SEEN (NOT SEEN); Platelet Estimate ADEQ; Toxic Granulation 1+
[2023-10-03] MEDS ORDERED: LEVALBUTEROL 1.25 MG/3 ML NEB ONE (21:38)
[2023-10-03] MEDS ORDERED: NA CHLORIDE 0.9% 1,000 ML ONE (21:43)
[2023-10-03] MEDS ORDERED: Levofloxacin 750mg IV 750 MG/150 ML BAG IV ONE (22:05)
--- NOTE | 2023-10-03 22:32 | RAD REPORT ---
EXAM DESCRIPTION: CT - Abdomen Pelvis W Contrast - 10/03/2023 10:18 pm CLINICAL HISTORY: shortness of breath. Abdominal pain COMPARISON: Abdomen Pelvis W Contrast dated 10/22/2019; Abdomen Pelvis W Contrast dated 9; Chest For Pe Angio dated 10/03/2023 TECHNIQUE: Thin cut axial CT imaging of the abdomen and pelvis was performed following intravenous a dministration of 100 mL Isovue 300. Multiplanar reformats were generated and reviewed. All CT scans are performed using dose optimization technique as appropriate and may include automated exposure control or mA/KV adjustment according to patient size. FINDINGS: No suspicious findings in the lung bases apart from left basilar atelectasis. The liver, spleen, adrenal glands, and pancreas show no suspicious findings. Gallbladder shows multip le cholesterol containing stones. Symmetric renal function is seen with no hydronephrosis or suspicious renal mass. No dilated bowel loops or bowel wall thickening. Colonic diverticulosis. No free air, free fluid or i nflammatory stranding. No hernia, mass or bulky lymphadenopathy. The urinary bladder is without signi ficant finding. No suspicious bony findings. IMPRESSION: Cholelithiasis without other acute intra-abdominal process.
--- NOTE | 2023-10-03 22:36 | RAD REPORT ---
EXAM DESCRIPTION: CT - Chest For Pe Angio - 10/03/2023 10:18 pm CLINICAL HISTORY: SOB COMPARISON: Chest Angio dated 09/24/2022; Chest For Pe Angio dated 12/28/2016 TECHNIQUE: Thin axial CT images of the chest were obtained following administration of 100 mL Isovue 370 IV contrast. Multiplanar reconstructions, and maximum intensity projection reconstructions were generated and reviewed. Exam utilizes a protocol for optimal evaluation of pulmonary arterial tree. All CT scans are performed using dose optimization technique as appropriate and may include automated exposure control or mA/KV adjustment according to patient size. FINDINGS: Pulmonary arteries are patent without emboli or other suspicious finding. Prominent calibe r of the main pulmonary artery, exceeding that of the aorta. No acute or significant aorta findings. No mass or infiltrate in the lung parenchyma. Subsegmental bibasilar atelectasis. No pleural thickeni ng or pleural effusion. No pneumothorax. Moderate cardiomegaly. No abnormal mediastinal or hilar masses or lymphadenopathy seen. No chest wall mass or abnormal axilliary lymphadenopathy. IMPRESSION: No evidence of acute central pulmonary emboli. Prominent caliber of the main pulmonary artery, suggesting pulmonary arterial hypertension in the amna ropriate clinical setting. No other acute findings in the chest.
[2023-10-03 23:10] LABS: Arterial Blood Carboxyhemoglob 6.8 % (0-1.5); Blood Gas Oxyhemoglobin 85.3 % (94-97); Blood O2 Saturation 93.1 % (92-98.5)
--- NOTE | 2023-10-03 23:42 | ER ---
Nurse's Notes [facility] Name: Nikki Jaramillo Age: 58 yrs Sex: Female : 1965 Arrival Date: 10/03/2023 Time: 19:13 Bed 3 Private MD: Diagnosis: Severe sepsis without septic shock;UTI/ Urinary tract infection, site not specified;Acute respiratory failure with hypercapnia;Other cholelithiasis without obstruction Presentation: 10/03 19:23 Chief complaint: EMS states: Called to patient's home for shortness of breath. EMS cm10 reports that patient started complaining of shortness of breath 1hr PUDDLER PILE DRIVING. Pt received Solumedrol 125mg IVP and 1 A\T\A treatment in route. Pt arrived on non-rebreather. No chest pain. Coronavirus screen: Vaccine status: Patient reports receiving the 2nd dose of the covid vaccine. Client denies travel out of the [place] in the last 14 days. Ebola Screen: Patient denies travel to an Ebola-affected area in the 21 days before illness onset. No symptoms or risks identified at this time. Initial Sepsis Screen: Does the patient meet any 2 criteria? RR > 20 per min. HR > 90 bpm. Does the patient have a suspected source of infection? No. Patient's initial sepsis screen is negative. Risk Assessment: Do you want to hurt yourself or someone else? Patient reports no desire to harm self or others. Onset of symptoms was October 03, 2023. 19:23 Method Of Arrival: EMS: [facility] cm10 19:23 Acuity: BOBBY 2 cm10 19:41 Care prior to arrival: Medication(s) given: Albuterol Neb x 1, Atrovent Neb x 1, cm10 Solumedrol 125mg IV initiated. 20 GA, in the right antecubital area, Med neb given. Oxygen administered. via a non-rebreather mask. Triage Assessment: 19:40 General: Appears uncomfortable, Behavior is cooperative. Pain: Denies pain. Neuro: No cm10 deficits noted. Level of Consciousness is awake, alert, obeys commands, Oriented to person, place, time, situation. Cardiovascular: Patient's skin is warm and dry. Respiratory: Reports shortness of breath since 1hr PUDDLER PILE DRIVING Airway is patent Respiratory effort is labored, Respiratory pattern is tachypnea Breath sounds with wheezes bilaterally. Onset: The symptoms/episode began/occurred just prior to arrival, the patient has moderate shortness of breath. Historical: - Allergies: 19:25 No Known Allergies; cm10 - PMHx: 19:25 Asthma; COPD; Diabetes - NIDDM; Diverticulitis; cm10 - Immunization history:: Adult Immunizations unknown. - Social history:: Smoking status: Patient reports the use of cigarette tobacco products, smokes one-half pack cigarettes per day. Screenin:02 [facility] ED Fall Risk Assessment (Adult) History of falling in the last 3 months, mb9 including since admission No falls in past 3 months (0 pts) Confusion or Disorientation No (0 pts) Intoxicated or Sedated No (0 pts) Impaired Gait No (0 pts) Mobility Assist Device Used No (0 pt) Altered Elimination No (0 pt) Score/Fall Risk Level 0 - 2 = Low Risk Oriented to surroundings, Maintained a safe environment, Educated pt \T\ family on fall prevention, incl call for assistance when getting out of bed. Abuse screen: Denies threats or abuse. Nutritional screening: No deficits noted. Tuberculosis screening: No symptoms or risk factors identified. Assessment: 20:02 Reassessment: see triage assessment. 9 10/04 02:12 Cardiovascular: Rhythm is regular. rv 15:20 Reassessment: Failed attempt to call report to 4th floor, placed on hold for 7 minutes. eh3 Vital Signs: 10/03 19:23 BP 109 / 59; Pulse 109; Resp 28; Temp 97.3; Pulse Ox 100% on 3 lpm NC; Weight 135.62 cm10 kg; Height 5 ft. 3 in. ; Pain 0/10; 21:23 BP 108 / 61; Pulse 98; Resp 22; Pulse Ox 91% on 2 lpm NC; mb9 10/04 02:10 Pulse 83; Resp 18; Pulse Ox 98% on BiPAP; FiO2 50 %; rv 02:14 BP 119 / 64; rv 10/03 19:23 Body Mass Index 52.96 (135.62 kg, 160.02 cm) [facility] 10/03 19:23 Pain Scale: Adult 10 ED Course: 10/03 19:23 Patient arrived in ED. [facility] 19:25 Harpreet Steen PA is PHCP. cp 19:25 Harpreet Pierce MD is Attending Physician. cp 19:25 Triage completed. cm10 19:26 Diana Eller, RN is Primary Nurse. cm10 19:26 Arm band placed on Patient placed in an exam room, on a stretcher, on oxygen, on pulse cm10 oximetry. 19:41 EKG done, by ED staff, reviewed by Harpreet GOETZ. Maintain EMS IV. Dressing intact. cm10 Good blood return noted. Site clean \T\ dry. Gauge \T\ site: 20G, RAC. 20:02 COVID-19 SARS RT PCR Sent. mb9 20:02 Influenza Screen (a \T\ B) Sent. mb9 20:03 No provider procedures requiring assistance completed. mb9 20:08 XRAY Chest (1 view) In Process Unspecified. EDMS 21:08 US Extremity Venous W Compression Enmanuel In Process Unspecified. EDMS 22:19 CT Chest For PE Angio In Process Unspecified. EDMS 22:20 CT Abd/Pelvis - IV Contrast Only In Process Unspecified. EDMS 23:19 US Abdomen Limited In Process Unspecified. EDMS 23:26 Urinalysis W/Microscopic Sent. jj7 23:40 Luke Hernandez MD is Hospitalizing Provider. cp 10/04 02:12 Patient has correct armband on for positive identification. Provided Education on: rv bipap. 02:13 Patient admitted, IV remains in place. rv Administered Medications: 10/03 20:02 Drug: MethylPrednisoLONE IVP 125 mg IVP once Route: IVP; Site: right antecubital; rv 10/04 02:13 Follow up: Response: No adverse reaction rv 10/03 20:02 Drug: DuoNeb Nebulize (2.5 mg - 0.5 mg) 3 ml Nebulizer once Route: Nebulizer; rv 10/04 02:13 Follow up: Response: No adverse reaction rv 10/03 21:31 Not Given (Physician Discretion): ns 0.9% 1000 ml IV at 1 bolus Per protocol; 1000 mL cp bolus 21:32 Drug: Levalbuterol Inhalation 1.25 mg Inhalation once Route: Inhalation; rv 10/04 02:13 Follow up: Response: No adverse reaction rv 10/03 21:55 Drug: NS 0.9% IV (30 ml/kg) 30 ml/kg IV at bolus once; Sepsis Protocol, based of ideal rv body weight give 2550 mL Route: IV; Rate: bolus; Site: left forearm; 10/04 02:13 Follow up: IV Status: Completed infusion; IV Intake: 2000ml rv 10/03 21:55 Drug: levofloxacin IVPB 750 mg 150 ml IVPB once over 90 mins Volume: 150 ml; Route: rv IVPB; Infused Over: 90 mins; Site: left forearm; 10/04 02:13 Follow up: Response: No adverse reaction; IV Status: Completed infusion; IV Intake: rv 150ml 02:10 Drug: Aspirin PO Chewable Tablet 324 mg PO once; 81 mg tablets x 4 Route: PO; jj7 02:13 Follow up: Response: Medication administered at discharge. rv Medication: 10/03 20:03 VIS not applicable for this client. mb9 Intake: 10/04 02:13 IV: 150ml; Total: 150ml. rv 02:13 IV: 2000ml; Total: 2150ml. rv Outcome: 10/03 23:41 Decision to Hospitalize by Provider. cp 10/04 02:12 Admitted to ER Hold. Please see [facility] for further documentation. rv Condition: good Instructed on the need for admit, 16:30 Patient left the ED. ll1 Signatures: Dispatcher [employer] EDMS Harpreet Steen PA PA cp Jorje Chavez RN RN rv Meredith Brownlee RN RN ll1 Carli Schwab, Hellen Anne RN, RN RN jjAshley Gaspar RN RN mb9 Diana Eller RN RN cm10 Corrections: (The following items were deleted from the chart) 10/03 19:26 19:25 Allergies: Aspirin; cm10 cm10 21:24 21:23 BP 108 / 61; Pulse 98bpm; Resp 20bpm; Pulse Ox 91% 2 lpm Nasal Cannula; mb9 mb9
--- NOTE | 2023-10-03 23:42 | EDPHYS ---
Physician Documentation [facility] Name: Nikki Jaramillo Age: 58 yrs Sex: Female : 1965 Arrival Date: 10/03/2023 Time: 19:13 Bed 3 Private MD: ED Physician Harpreet Pierce HPI: 10/03 19:50 This 58 yrs old Female presents to ER via EMS with complaints of Shortness Of cp Breath. 19:50 The patient has shortness of breath at rest. Onset: The symptoms/episode began/occurred cp today, 1 hour(s) ago. Duration: The symptoms are continuous, and are steadily getting worse. Associated signs and symptoms: Pertinent negatives: fever. Severity of symptoms: in the emergency department the symptoms are unchanged despite EMS interventions. Historical: - Allergies: 19:25 No Known Allergies; cm10 - PMHx: 19:25 Asthma; COPD; Diabetes - NIDDM; Diverticulitis; cm10 - Immunization history:: Adult Immunizations unknown. - Social history:: Smoking status: Patient reports the use of cigarette tobacco products, smokes one-half pack cigarettes per day. ROS: 19:55 Constitutional: Negative for body aches, chills, fever, poor PO intake, cp 19:55 Eyes: Negative for injury, pain, redness, and discharge, cp 19:55 ENT: Negative for drainage from ear(s), ear pain, sore throat, difficulty swallowing, difficulty handling secretions, 19:55 Cardiovascular: Positive for chest pain, 19:55 Respiratory: Positive for shortness of breath, at rest. 19:55 Abdomen/GI: Negative for abdominal pain, vomiting, diarrhea, constipation, 19:55 Neuro: Negative for altered mental status, headache, syncope, 19:55 All other systems are negative, Exam: 19:42 ECG was reviewed by the Attending Physician. cp 20:00 Constitutional: The patient appears alert, awake, non-diaphoretic, non-toxic, well cp developed, well nourished, obese, in obvious distress, moderately distressed, 20:00 Head/Face: Normocephalic, atraumatic. cp 20:00 Eyes: Periorbital structures: appear normal, Pupils: equal, round, and reactive to light and accomodation, Extraocular movements: intact throughout, Conjunctiva: normal, no exudate, no injection, Sclera: no appreciated abnormality, Lids and lashes: appear normal, bilaterally, 20:00 ENT: External ear(s): are unremarkable, Nose: is normal, Mouth: Lips: dry, Oral mucosa: moist, Posterior pharynx: Airway: no evidence of obstruction, patent, 20:00 Neck: ROM/movement: is normal, is supple, without pain, no range of motions limitations, no meningismus, 20:00 Chest/axilla: Inspection: normal, 20:00 Cardiovascular: Rate: tachycardic, Rhythm: regular, Edema: ankle edema, that is mild, JVD: is not appreciated, 20:00 Respiratory: moderate respiratory distress is noted, Respirations: labored breathing, that is moderate, Breath sounds: decreased breath sounds, that are moderate, throughout, stridor, is not appreciated, wheezing: that is mild, is heard diffusely, 20:00 Abdomen/GI: Inspection: obese Bowel sounds: active, all quadrants, Palpation: abdomen is soft and non-tender, in all quadrants, 20:00 Back: pain, is absent, ROM is normal, 20:00 Neuro: Orientation: to person, place \T\ time. Mentation: able to follow commands, slow to respond, Motor: moves all fours, no focal deficits, Sensation: no obvious gross deficits, Vital Signs: 19:23 BP 109 / 59; Pulse 109; Resp 28; Temp 97.3; Pulse Ox 100% on 3 lpm NC; Weight 135.62 cm10 kg; Height 5 ft. 3 in. ; Pain 0/10; 21:23 BP 108 / 61; Pulse 98; Resp 22; Pulse Ox 91% on 2 lpm NC; mb9 10/04 02:10 Pulse 83; Resp 18; Pulse Ox 98% on BiPAP; FiO2 50 %; rv 02:14 BP 119 / 64; rv 10/03 19:23 Body Mass Index 52.96 (135.62 kg, 160.02 cm) cm10 10/03 19:23 Pain Scale: Adult cm10 MDM: 10/03 19:25 Patient medically screened. cp 20:00 Differential diagnosis: CHF exacerbation, Chronic Obstructive Pulmonary Disease cp Myocardial Infarction pneumonia, pulmonary edema, Pulmonary Embolism Sepsis. 23:00 Data reviewed: vital signs, nurses notes, lab test result(s), EKG, radiologic studies, cp CT scan, plain films, and as a result, I will admit patient. 23:00 Consideration of Admission/Observation Patient was admitted/placed on observation. I cp considered the following discharge prescriptions or medication management in the emergency department Medications were administered in the Emergency Department. See MAR. Independent interpretation of the following test(s) in the Emergency Department EKG: See my EKG interpretation above. Care significantly affected by the following chronic conditions: Diabetes, Chronic Obstructive Pulmonary Disease, Obesity. Response to treatment: the patient's symptoms have markedly improved after treatment. 23:45 Management of patient was discussed with the following: Hospitalist: DR Hernandez will cp admit after discussion. 10/03 19:47 Order name: CBC with Diff; Complete Time: 22:44 10/03 20:25 Interpretation: Normal except: WBC 22.10; ROSCOE% 90.6; LYM% 5.5; NEUT A 20.1. 10/03 19:47 Order name: Magnesium; Complete Time: 20:58 10/03 19:47 Order name: NT PRO-BNP; Complete Time: 20:58 10/03 19:47 Order name: PT-INR; Complete Time: 20:58 10/03 19:47 Order name: Troponin HS; Complete Time: 20:58 10/03 22:46 Interpretation: Reviewed. 10/03 19:47 Order name: CMP; Complete Time: 20:58 10/03 21:28 Interpretation: Normal except: GLUC 197; GFR 75; AST 61; ALT 69; CA 8.4; ALB 3.3; GLOB cp 3.6; A/G 0.9. 10/03 19:47 Order name: Influenza Screen (a \T\ B); Complete Time: 20:58 10/03 19:47 Order name: COVID-19 SARS RT PCR; Complete Time: 20:58 10/03 19:47 Order name: Lactate w/ 2H reflex if indic.; Complete Time: 20:58 10/03 20:26 Order name: Urinalysis W/Microscopic; Complete Time: 01:44 10/04 01:44 Interpretation: Normal except: UCLA Turbid; Urine SG > 1.030; UBLD Trace; UPROT 2+; cp UNIT 1+; UBACT 20-50. 10/03 21:26 Order name: Blood Culture Adult (2) 10/03 21:36 Order name: Manual Differential; Complete Time: 22:44 EDMS 10/03 22:45 Interpretation: Normal except: SEGS 86; BANDS [F] 2; LYM 5. cp 10/03 22:52 Order name: ABG; Complete Time: 23:36 lg3 10/04 01:11 Order name: Lactate Sepsis 2 HR Follow-up; Complete Time: 01:44 EDMS 10/04 07:12 Order name: Basic Metabolic Panel EDMS 10/04 07:12 Order name: Basic Metabolic Panel EDMS 10/04 07:12 Order name: CBC with Automated Diff EDMS 10/04 07:12 Order name: CBC with Automated Diff EDMS 10/04 07:32 Order name: Troponin High Sensitivity EDMS 10/04 07:32 Order name: Troponin High Sensitivity EDMS 10/04 07:32 Order name: Troponin High Sensitivity EDMS 10/04 07:32 Order name: Troponin High Sensitivity EDMS 10/04 08:25 Order name: Glucose, Ancillary Testing EDMS 10/04 12:05 Order name: Glucose, Ancillary Testing EDOR 10/03 19:47 Order name: XRAY Chest (1 view); Complete Time: 21:25 cp 10/03 19:47 Order name: US Extremity Venous W Compression Enmanuel; Complete Time: 21:25 cp 10/03 21:27 Order name: CT Chest For PE Angio; Complete Time: 22:44 cp 10/03 21:27 Order name: CT Abd/Pelvis - IV Contrast Only; Complete Time: 22:44 cp 10/03 22:47 Order name: US Abdomen Limited cp 10/03 19:47 Order name: EKG; Complete Time: 19:47 cp 10/03 19:47 Order name: Cardiac monitoring; Complete Time: 20:02 cp 10/03 19:47 Order name: EKG - Nurse/Tech; Complete Time: 20:02 cp 10/03 19:47 Order name: IV Saline Lock; Complete Time: 20:02 cp 10/03 19:47 Order name: Labs collected and sent; Complete Time: 20:02 cp 10/03 19:47 Order name: O2 Per Protocol; Complete Time: 20:02 cp 10/03 19:47 Order name: O2 Sat Monitoring; Complete Time: 20:02 cp EC:42 Rate is 110 beats/min. Rhythm is regular. SD interval is normal. QRS interval is cp normal. QT interval is normal. T waves are Inverted in lead V2. Interpreted by me. Reviewed by me. Administered Medications: 20:02 Drug: MethylPrednisoLONE IVP 125 mg IVP once Route: IVP; Site: right antecubital; rv 10/04 02:13 Follow up: Response: No adverse reaction rv 10/03 20:02 Drug: DuoNeb Nebulize (2.5 mg - 0.5 mg) 3 ml Nebulizer once Route: Nebulizer; rv 10/04 02:13 Follow up: Response: No adverse reaction rv 10/03 21:31 Not Given (Physician Discretion): ns 0.9% 1000 ml IV at 1 bolus Per protocol; 1000 mL cp bolus 21:32 Drug: Levalbuterol Inhalation 1.25 mg Inhalation once Route: Inhalation; rv 10/04 02:13 Follow up: Response: No adverse reaction rv 10/03 21:55 Drug: NS 0.9% IV (30 ml/kg) 30 ml/kg IV at bolus once; Sepsis Protocol, based of ideal rv body weight give 2550 mL Route: IV; Rate: bolus; Site: left forearm; 10/04 02:13 Follow up: IV Status: Completed infusion; IV Intake: 2000ml rv 10/03 21:55 Drug: levofloxacin IVPB 750 mg 150 ml IVPB once over 90 mins Volume: 150 ml; Route: rv IVPB; Infused Over: 90 mins; Site: left forearm; 10/04 02:13 Follow up: Response: No adverse reaction; IV Status: Completed infusion; IV Intake: rv 150ml 02:10 Drug: Aspirin PO Chewable Tablet 324 mg PO once; 81 mg tablets x 4 Route: PO; jj7 02:13 Follow up: Response: Medication administered at discharge. rv Disposition Summary: 10/03/23 23:41 Hospitalization Ordered Notes: Hospitalization Status: Inpatient Admission cp Provider: Luke Hernandez cp Condition: Fair cp Problem: new cp Symptoms: have improved cp Bed/Room Type: Standard cp Location: Telemetry/MedSurg (Inpatient)(10/04/23 15:07) em1 Room Assignment: 405(10/04/23 16:20) ll1 Diagnosis - Severe sepsis without septic shock cp - UTI/ Urinary tract infection, site not specified cp - Acute respiratory failure with hypercapnia cp - Other cholelithiasis without obstruction cp Forms: - Medication Reconciliation Form cp - SBAR form cp - Leadership Thank You Letter cp Signatures: Dispatcher [employer] Troy Massey em1 Harpreet Steen PA PA cp Vicente, Ronaldo, RN RN Annabelle Lam RN RN lg3 Meredith Brownlee RN RN ll1 Hellen Bowman RN RN jj7 Diana Eller RN RN cm10 Corrections: (The following items were deleted from the chart) 10/03 19:26 19:25 Allergies: Aspirin; cm10 cm10 10/04 04:05 10/03 23:41 Telemetry/MedSurg (Inpatient) cp lg3 10/04 04:05 10/03 23:41 cp lg3 10/04 15:07 04:[address] [facility] ER HOLD lg3 em1 15:07 04:05 ERHOLD- lg3 em1 16:20 15:07 419 em1 ll1
[2023-10-04 00:36] LABS: Specific Gravity > 1.030 (1.005-1.030); Urine Bacteria 20-50 /HPF (<20); Urine Bilirubin NEGATIVE (Negative); Urine Blood Trace (Negative); Urine Clarity Turbid (Clear); Urine Color Light-Yellow (Yellow); Urine Glucose NEGATIVE (Negative); Urine Mucus Slight /HPF (None Seen); Urine Protein 2+ (Negative); Urine RBC None Seen /HPF (None Seen); Urine Urobilinogen Normal (Normal)
[2023-10-04] MEDS ORDERED: ASPIRIN 81 MG CHEWABLE TABLET ONE (02:21)
[2023-10-04] MEDS ORDERED: ONDANSETRON 4 MG/2 ML VIAL IV PRN (07:07)
[2023-10-04] MEDS ORDERED: ALPRAZOLAM 0.25 MG TABLET PO PRN (07:07)
--- NOTE | 2023-10-04 07:15 | P.HP ---
Certification for Inpatient Patient admitted to: Inpatient With expected LOS: >2 Midnights Practitioner: I am a practitioner with admitting privileges, knowledge of patient current condition, hospital course, and medical plan of care. Services: Services provided to patient in accordance with Admission requirements found in Title 42 Section 412.3 of the Code of Federal Regulations Patient History Date of Service: 10/04/23 Reason for admission: Respiratory failure, sepsis, suspected History of Present Illness: 58-year-old female patient with medical history significant for diabetes type 2, hypertension, hyperlipidemia, history of suspected COPD was evaluated for episode of sudden onset shortness of breath. Patient reported that she began to get short of breath suddenly without any precipitating event. No chest pain reported. No dizzy spells reported. She was initially evaluated in the ED and found to have respiratory failure with hypoxia and hypercapnia elevated troponin of 89 and she was started on BiPAP therapy. She was given IV steroid antibiotic therapy and was admitted for inpatient care. As part of her initial workup lactic acid was elevated at 3 and a repeat evaluate this was persistent. She was deemed to be having sepsis so she was pancultured. Imaging studies done to rule out PE was negative, DVT was negative and other chest findings were not p articularly concerning for infectious process. There is elevated BNP raising concerns for CHF related issues. There was also mention of increased diameter of the pulmonary artery raising concerns for pulmonary hypertension. Allergies No Known Drug Allergies Allergy (Verified 12/28/16 06:00) Unknown No Known Allergies Allergy (Uncoded 12/28/16 05:58) Unknown Home Medications: Potassium Chloride [Klor-Con M10] 20 meq PO DAILY 05/18/15 Albuterol Sulfate [Proair Hfa] 8.5 gm IH TID PRN #1 hfa.aer.ad 12/30/16 Fluticasone/Salmeterol [Advair 250/50 Diskus*] 1 puff IH BID #1 disk 12/30/16 Rosuvastatin Calcium 10 mg PO DAILY 10/22/19 Furosemide 40 mg PO 1X 09/24/22 Ipratropium/Albuterol Sulfate [Combivent Respimat 20-100 Mcg] 1 puff LEÓN PRN PRN 09/24/22 Meloxicam 15 mg PO 1X 09/24/22 Metformin HCl [Metformin HCl ER] 750 mg PO BID 11/20/22 Metoprolol Succinate 50 mg PO DAILY 09/24/22 Umeclidinium [place] [Incruse Ellipta] 62.5 mcg PRN PRN 09/24/22 Benzonatate [Tessalon Perle*] 100 mg PO TID PRN 7 Days #20 cap 09/28/22 Cefuroxime [Ceftin*] 500 mg PO BID 5 Days #20 tab 09/28/22 Oseltamivir [Tamiflu*] 75 mg PO BID 1 Days #2 cap 09/28/22 predniSONE [Prednisone*] 20 mg PO BID 3 Days #6 tab 09/28/22 - Past Medical/Surgical History Diabetic: Yes -: Diabetes mellitus type 2 -: Hypertension -: History of CVA -: COPD -: Tobacco abuse -: Obesity -: Right ankle surgery -: Bilateral knee surgery -: Right shoulder surgery -: 3 previous C-sections Psychosocial/ Personal History: She is single, has 3 children. She does not work. - Family History Father -: Heart disease Notes: heart attack Mother -: Heart disease, Diabetes, Cancer Brother -: Diabetes - Social History Alcohol use: No CD- Drugs: No Caffeine use: Yes Review of Systems General: Weakness, Malaise Eyes: Unremarkable ENT: Unremarkable Respiratory: Cough, Shortness of Breath, SOB with Excertion Cardiovascular: Unremarkable Gastrointestinal: Unremarkable Genitourinary: Unremarkable Musculoskeletal: Unremarkable Integumentary: Unremarkable Neurological: Unremarkable Physical Examination - Vital Signs Pulse: 74 Pulse Ox (%): 100 - Physical Exam General: Alert, Oriented x3, Moderate distress HEENT: Atraumatic Neck: Supple Respiratory: Diminished Cardiovascular: Regular rate/rhythm, Normal S1 S2 Gastrointestinal: Soft and benign Musculoskeletal: No swelling Neurological: Normal speech, Normal strength at 5/5 x4 extr - Studies Laboratory Data (last 24 hrs) 10/03/23 10/03/23 10/03/23 20:10 20:10 20:10 WBC 22.10 H Hgb 14.3 Hct 44.1 Plt Count 299 PT 11.5 INR 1.05 Sodium 137 Potassium 3.7 BUN 9 Creatinine 0.88 Glucose 197 H Magnesium 1.7 Total Bilirubin 0.9 AST 61 H ALT 69 H Alkaline Phosphatase 79 Microbiology Data (last 24 hrs): 10/03/23 19:59 Nasopharnyx Influenza Type A Antigen Screen - Final 10/03/23 19:59 Nasopharnyx Influenza Type B Antigen Screen - Final Assessment and Plan - Plan Sepsis: Present on admission. Elevated lactic acid of 3 noted. Pancultures taken. Empiric antibiotic therapy with Levaquin started. Follow trend of lactic acid with IV cefazolin fluid hydration. Respiratory failure with hypoxemia and hypercapnia: Patient does have a history of COPD. Will continue breathing treatment with DuoNeb and supplemental oxygen. BiPAP therapy to be continued for respiratory failure related issues.. Monitor ABG as per pulmonary physician. [employer] consulted. Suspected pneumonia: Empiric antibiotic therapy with Levaquin started. Will continue to monitor blood cultures for adjustment to therapy. Diabetes type 2: Will continue on carb restricted diet and sliding scale insulin for glucose control. Will continue to monitor blood sugar before meals and at bedtime. Hypertension: Monitor vital signs per unit protocol and continue antihypertensive medications. Hyperlipidemia: We will continue statin therapy. Obesity: We will continue to encourage weight loss History of COPD: Will continue outpatient inhaler therapy. [employer] to evaluate. Prophylaxis: Lovenox for DVT prophylaxis CODE STATUS: Full code Disposition: We will treat her multiple medical issues and she will be discharged when she is deemed clinically stable. Discharge Plan: Home - Advance Directives Does patient have a Living Will: No Does patient have a Durable POA for Healthcare: No
[2023-10-04] MEDS ORDERED: GLUCAGON 1 MG/VIAL IM PRN (07:32)
[2023-10-04] MEDS ORDERED: D50W 25 GM/50 ML SYRINGE IV PRN (07:32)
[2023-10-04] MEDS: ENOXAPARIN 40 MG/0.4 ML SQ SCH (09:00)
[2023-10-04] MEDS: IPRATROPIUM BROM 0.5MG/2.5ML NEB SCH ×3 (09:00→19:22)
[2023-10-04] MEDS: ALBUTEROL 2.5 MG/3 ML NEB SOL NEB SCH ×3 (09:00→19:22)
[2023-10-04] MEDS ORDERED: Levofloxacin 750mg IV 750 MG/150 ML BAG IV SCH ×2 (09:00→21:00)
[2023-10-04] MEDS: METHYLPREDNISOLONE 40 MG INJ IV SCH ×2 (09:00→20:03)
[2023-10-04] MEDS: NA CHLORIDE 0.9% 1,000 ML IV SCH ×2 (09:00→18:00)
[2023-10-04] MEDS ORDERED: METHYLPREDNISOLONE 40 MG INJ ONE (09:59)
[2023-10-04] MEDS ORDERED: ENOXAPARIN 40 MG/0.4 ML SQ ONE (09:59)
[2023-10-04] MEDS ORDERED: NA CHLORIDE 0.9% 0 ML ONE (09:59)
--- NOTE | 2023-10-04 10:28 | RAD REPORT ---
EXAM DESCRIPTION: US - Abdomen Exam Limited - 10/03/2023 11:17 pm CLINICAL HISTORY: The patient is 58 years old and is Female; elevated liver enzymes TECHNIQUE: Real-time ultrasound of the right upper quadrant with image documentation. COMPARISON: No relevant prior studies available. FINDINGS: GALLBLADDER: Several gallstones fill the gallbladder. Minimal gallbladder wall thickenin g is noted. There is no pericholecystic fluid. COMMON BILE DUCT: Unremarkable as visualized. No stones. No dilation. IMPRESSION: Cholelithiasis with minimal gallbladder wall thickening which can be seen with acute cho lecystitis. No pericholecystic fluid is noted. If there is continued concern, a HIDA scan could be pe rformed. Electronically signed by: Miriam Quinones MD 10/03/2023 11:44 PM FORMULA CHECKER Due to temporary technical issues with the PACS/Fluency reporting system, reports are being signed by the in house radiologists without review as a courtesy to insure prompt reporting. The interpreting radiologist is fully responsible for the content of the report.
[2023-10-04] MEDS: INSULIN REGULAR (HUMAN) 100 UNIT/ML SQ SCH ×3 (11:30→20:03)
[2023-10-04] MEDS ORDERED: INSULIN REGULAR (HUMAN) 100 UNIT/ML ONE (12:09)
--- NOTE | 2023-10-04 15:12 | EKG ---
Test Date: 2023-10-03 Test Time: 19:36:30 [place]: MIGUEL MEASUREMENT RESULTS: Intervals: Rate: 110 SC: 188 QRSD: 96 QT: 292 QTc: 395 [place]: P: 8 SC: 188 QRS: 138 T: 74 INTERPRETIVE STATEMENTS: Sinus tachycardia Nonspecific ST and T wave abnormality Abnormal ECG Compared to ECG 09/24/2022 05:36:27 Sinus rhythm no longer present ST (T wave) deviation still present Electronically Signed On 10-04-23 15:10:37 HABILITATION TRAINING SPECIALIST by Asad Anthony
[2023-10-04] MEDS ORDERED: INFLUENZA VACCINE (for 6+ mo) 0.5 ML DOSE IMVAC ONE (16:00)
[2023-10-04 17:38] VITALS: BMI 52.8
[2023-10-05] MEDS: IPRATROPIUM BROM 0.5MG/2.5ML NEB SCH ×4 (00:56→19:29)
[2023-10-05] MEDS: ALBUTEROL 2.5 MG/3 ML NEB SOL NEB SCH ×4 (00:56→19:29)
[2023-10-05] MEDS: NA CHLORIDE 0.9% 1,000 ML IV SCH (03:12)
[2023-10-05 08:14] LABS: Absolute Lymphocytes (CBC) 1.3 K/uL (0.7-4.9); Lymphocytes % 7.5 % (15.3-44.8); MCV 97.9 fL (80-100); MPV 8.4 fL (7.6-11.3); Platelets 310 thou/uL (152-406); RBC Red Blood Cell Count 4.19 M/uL (3.86-4.86)
[2023-10-05 08:19] LABS: Potassium 4.4 mEq/L (3.5-5.1)
[2023-10-05] MEDS: METHYLPREDNISOLONE 40 MG INJ IV SCH (08:44)
[2023-10-05] MEDS: ENOXAPARIN 40 MG/0.4 ML SQ SCH (08:44)
[2023-10-05] MEDS: INSULIN REGULAR (HUMAN) 100 UNIT/ML SQ SCH ×4 (08:44→20:52)
[2023-10-05] MEDS ORDERED: FUROSEMIDE 20 MG/ 2ML VIAL IV ONE (10:30)
--- NOTE | 2023-10-05 12:22 | P.CNS ---
Date of Consult: 10/05/23 Reason for Consult: Respiratory distress Chief Complaint: Respiratory failure, sepsis, suspected History of Present Illness: Patient is 58 years of age with a history of COPD metabolic syndrome admitted to the hospital complaining of sudden onset of shortness of breath no chest pain cough congestion was hypoxic hypercapnic admitted started on BiPAP is currently doing better denies any fever or chills 6 patient was compliant with her inhaler patient is compliant with Advair and Incruse Allergies No Known Drug Allergies Allergy (Verified 12/28/16 06:00) Unknown No Known Allergies Allergy (Uncoded 12/28/16 05:58) Unknown Home Medications: Potassium Chloride [Klor-Con M10] 20 meq PO DAILY 05/18/15 Albuterol Sulfate [Proair Hfa] 8.5 gm IH TID PRN #1 hfa.aer.ad 12/30/16 Fluticasone/Salmeterol [Advair 250/50 Diskus*] 1 puff IH BID #1 disk 12/30/16 Rosuvastatin Calcium 10 mg PO DAILY 10/22/19 Furosemide 40 mg PO 1X 09/24/22 Ipratropium/Albuterol Sulfate [Combivent Respimat 20-100 Mcg] 1 puff LEÓN PRN PRN 09/24/22 Meloxicam 15 mg PO 1X 09/24/22 Metformin HCl [Metformin HCl ER] 750 mg PO BID 09/24/22 Metoprolol Succinate 50 mg PO DAILY 09/24/22 Umeclidinium [place] [Incruse Ellipta] 62.5 mcg PRN PRN 09/24/22 Benzonatate [Tessalon Perle*] 100 mg PO TID PRN 7 Days #20 cap 09/28/22 Cefuroxime [Ceftin*] 500 mg PO BID 5 Days #20 tab 09/28/22 Oseltamivir [Tamiflu*] 75 mg PO BID 1 Days #2 cap 09/28/22 predniSONE [Prednisone*] 20 mg PO BID 3 Days #6 tab 09/28/22 - Past Medical/Surgical History Diabetic: Yes -: Diabetes mellitus type 2 -: Hypertension -: History of CVA x3 -: COPD -: Tobacco abuse -: Obesity -: Right ankle surgery -: Bilateral knee surgery -: Right shoulder surgery -: 3 previous C-sections Psychosocial/ Personal History: She is single, has 3 children. She does not work. - Family History Father Medical History: Heart disease Notes: heart attack Mother Medical History: Heart disease, Diabetes, Cancer Brother Medical History: Diabetes - Social History Smoking Status: Current every day smoker Alcohol use: No CD- Drugs: No Caffeine use: Yes Place of Residence: Home Review of Systems 10-point ROS is otherwise unremarkable General: Weakness Respiratory: Cough, Shortness of Breath Physical Examination Temp Pulse Resp BP Pulse Ox 97.4 F 63 17 130/56 L 95 10/05/23 11:34 10/05/23 11:39 10/05/23 11:34 10/05/23 11:39 10/05/23 11:34 General: Alert HEENT: Atraumatic Neck: Supple Respiratory: Expiratory wheezes Cardiovascular: No edema, Normal pulses, Normal S1 S2 Gastrointestinal: Normal bowel sounds, Soft and benign - Problems (1) Acute and chronic respiratory failure Current Visit: Yes Status: Acute Plan: Patient is 58 years of age with a history of COPD compliant with medication admitted with acute onset of shortness of breath patient was hypoxic hypercarbic White count elevated currently on BiPAP we will change management facilitator to nasal cannula oxygen no acute findings on CT angiogram no pulmonary emboli EKG Sinus tachycardia Nonspecific ST and T wave abnormality Abnormal ECG Compared to ECG 09/24/2022 05:36:27 Sinus rhythm no longer present ST (T wave) deviation still prese Troponins mildly elevated secondary to demand ischemia presumably changed to p.o. prednisone continue with nebulizers plan for discharge tomorrow Qualifiers: Respiratory failure complication: hypoxia and hypercapnia Qualified Code(s): J96.21 - Acute and chronic respiratory failure with hypoxia; J96.22 - Acute and chronic respiratory failure with hypercapnia
[2023-10-05] MEDS: ASPIRIN 81 MG CHEWABLE TABLET PO SCH (20:52)
[2023-10-05] MEDS: predniSONE 20 MG TAB PO SCH (20:52)
[2023-10-05] MEDS ORDERED: predniSONE 20 MG TAB PO SCH (21:00)
[2023-10-06] MEDS: ALBUTEROL 2.5 MG/3 ML NEB SOL NEB SCH ×4 (00:40→18:20)
[2023-10-06] MEDS: IPRATROPIUM BROM 0.5MG/2.5ML NEB SCH ×4 (00:40→18:20)
[2023-10-06] MEDS: ENOXAPARIN 40 MG/0.4 ML SQ SCH (08:05)
[2023-10-06] MEDS: predniSONE 20 MG TAB PO SCH (08:05)
[2023-10-06] MEDS: INSULIN REGULAR (HUMAN) 100 UNIT/ML SQ SCH ×4 (08:05→20:49)
--- NOTE | 2023-10-06 11:20 | P.PN ---
Subjective Date of Service: 10/06/23 Chief Complaint: Respiratory failure, Physical Examination - Vital Signs Temperature: 97.7 F Blood Pressure: 135/71 Pulse: 55 Respirations: 21 Pulse Ox (%): 98 Assessment And Plan - Current Problems (Diagnosis) (1) Acute and chronic respiratory failure Current Visit: Yes Status: Acute Plan: Patient is 58 years of age with a history of COPD compliant with medication admitted with acute onset of shortness of breath patient was hypoxic hypercarbic White count elevated currently on BiPAP we will drying rack changer to nasal cannula oxygen no acute findings on CT angiogram no pulmonary emboli EKG Sinus tachycardia Nonspecific ST and T wave abnormality Abnormal ECG Compared to ECG 09/24/2022 05:36:27 Sinus rhythm no longer present ST (T wave) deviation still prese Troponins mildly elevated secondary to demand ischemia presumably changed to p.o. prednisone continue with nebulizers plan for discharge tomorrow Qualifiers: Respiratory failure complication: hypoxia and hypercapnia Qualified Code(s): J96.21 - Acute and chronic respiratory failure with hypoxia; J96.22 - Acute and chronic respiratory failure with hypercapnia
--- NOTE | 2023-10-06 11:23 | P.PN ---
Subjective Date of Service: 10/06/23 Chief Complaint: Respiratory failure, Subjective: Improving (Is improving doing much better on his home oxygen) Review of Systems 10-point ROS is otherwise unremarkable Respiratory: Shortness of Breath Physical Examination - Vital Signs Temperature: 97.7 F Blood Pressure: 135/71 Pulse: 55 Respirations: 21 Pulse Ox (%): 98 - Physical Exam General: Alert, Oriented x3 Respiratory: Clear to auscultation bilaterally Cardiovascular: No edema, Regular rate/rhythm, Normal S1 S2 Assessment And Plan - Current Problems (Diagnosis) (1) Acute and chronic respiratory failure Current Visit: Yes Status: Acute Plan: Patient is doing much better has trilogy at home continue signs oxygenation stable repeat CBC patient uses trilogy resume with low-dose prednisone troponins elevated probably from demand ischemia and she will need a cardiac work-up if not done Qualifiers: Respiratory failure complication: hypoxia and hypercapnia Qualified Code(s): J96.21 - Acute and chronic respiratory failure with hypoxia; J96.22 - Acute and chronic respiratory failure with hypercapnia
[2023-10-06 12:56] LABS: Absolute Lymphocytes (CBC) 1.3 K/uL (0.7-4.9); Hematocrit 41.5 % (36.0-45.0); Lymphocytes % 9.2 % (15.3-44.8); MCV 97.4 fL (80-100); MPV 8.1 fL (7.6-11.3); Platelets 304 thou/uL (152-406); RBC Red Blood Cell Count 4.26 M/uL (3.86-4.86)
[2023-10-06] MEDS: ASPIRIN 81 MG CHEWABLE TABLET PO SCH (20:48)
[2023-10-06] MEDS: predniSONE 10 MG TAB PO SCH (20:49)
[2023-10-07] MEDS: ALBUTEROL 2.5 MG/3 ML NEB SOL NEB SCH ×4 (02:10→20:59)
[2023-10-07] MEDS: IPRATROPIUM BROM 0.5MG/2.5ML NEB SCH ×4 (02:10→20:59)
[2023-10-07] MEDS: ACETAMINOPHEN 325 MG TABLET PO PRN ×2 (06:31→20:32)
[2023-10-07] MEDS: INSULIN REGULAR (HUMAN) 100 UNIT/ML SQ SCH ×4 (08:03→20:28)
[2023-10-07] MEDS: ENOXAPARIN 40 MG/0.4 ML SQ SCH (08:03)
[2023-10-07] MEDS: predniSONE 10 MG TAB PO SCH ×2 (08:03→20:31)
--- NOTE | 2023-10-07 12:39 | P.PN ---
Date of Service: 10/05/23 Subjective Patient is doing well with no new complaints. Patient's clinical symptoms are stable. We are able to get her weaned off of the BiPAP. Currently on nasal cannula at 3 L. Continuing with diuresing and steroid use. Continue with nebs. Physical Examination - Vital Signs Reviewed - Physical Exam General: Alert, Oriented x3, Moderate distress Respiratory: Diminished; end expiratory wheezing and basilar crackles Cardiovascular: Regular rate/rhythm, Normal S1 S2 Gastrointestinal: Soft and benign Musculoskeletal: No clubbing/cyanosis/swelling Neurological: Normal speech, Normal strength at 5/5 x4 extr Assessment and Plan -Assessment 1. Pneumonia with sepsis 2. Hypercapnic respiratory failure with severe hypoxemia 3. Heart failure with preserved ejection fraction 4. Type 2 diabetes 5. History of hypertension 6. History of COPD 7. History of hyperlipidemia 8. History of tobacco abuse 9. Morbid obesity -Plan Sepsis: Present on admission. Elevated lactic acid of 3 noted. Pancultures taken. Empiric antibiotic therapy with Levaquin started. Cultures are negative Follow trend of lactic acid with IV cefazolin fluid hydration. Respiratory failure with hypoxemia and hypercapnia: Patient does have a history of COPD. Will continue breathing treatment with DuoNeb and supplemental oxygen. BiPAP therapy to be continued for respiratory failure related issues.. Monitor ABG as per pulmonary physician. Mixing Technician consulted. Counseled regarding tobacco sensation Suspected pneumonia: Empiric antibiotic therapy with Levaquin started. Will continue to monitor blood cultures for adjustment to therapy. Procalcitonin will be evaluated; continue with antibiotics for now Diabetes type 2: Will continue on carb restricted diet and sliding scale insulin for glucose control. Will continue to monitor blood sugar before meals and at bedtime. Monitor blood sugars closely Hypertension: Monitor vital signs per unit protocol and continue antihypertensive medications. Hyperlipidemia: We will continue statin therapy. Obesity: We will continue to encourage weight loss Patient may benefit from GLP-1 agonists History of COPD: Continue with nebs, steroids, and antibiotics as patient appears to have a COPD exacerbation. Prophylaxis: Lovenox for DVT prophylaxis CODE STATUS: Full code Disposition: We will treat her multiple medical issues and she will be discharged when she is deemed clinically stable. Discharge Plan: Home - Advance Directives Does patient have a Living Will: No Does patient have a Durable POA for Healthcare: No
--- NOTE | 2023-10-07 12:59 | P.PN ---
Date of Service: 10/06/23 Subjective Patient getting out of bed and ambulating to the chair. She still gets very tachypneic at that point. Will continue to build her strength up. Will need to arrange for home health prior to discharge. She has home oxygen she wears 3 L at home. Standpoint she is almost back at her baseline. Will use BiPAP as needed. Wean her down and arrange for outpatient pulmonary so we can arrange for outpatient CPAP. Physical Examination - Vital Signs Reviewed - Physical Exam General: Alert, Oriented x3, mild distress on exertion Respiratory: Diminished; end expiratory wheezing and basilar crackles Cardiovascular: Regular rate/rhythm, Normal S1 S2 Gastrointestinal: Soft and benign Musculoskeletal: No clubbing/cyanosis/swelling Neurological: No focal deficits Assessment and Plan -Assessment 1. Pneumonia with sepsis 2. Hypercapnic respiratory failure with severe hypoxemia 3. Heart failure with preserved ejection fraction 4. Type 2 diabetes 5. History of hypertension 6. History of COPD 7. History of hyperlipidemia 8. History of tobacco abuse 9. Morbid obesity -Plan Sepsis: Present on admission. Clinically patient is doing much better. Continue on antibiotics. Cultures n egative. Respiratory failure with hypoxemia and hypercapnia: Wean off BiPAP. Continue with nebs, steroids, antibiotics Suspected pneumonia: Per sepsis management and continue with antibiotics. Repeat chest x-ray stable Diabetes type 2: Will continue on carb restricted diet and sliding scale insulin for glucose control. Will continue to monitor blood sugar before meals and at bedtime. Monitor blood sugars closely Hypertension: Monitor vital signs per unit protocol and continue antihypertensive medications. Hyperlipidemia: We will continue statin therapy. Obesity: We will continue to encourage weight loss Patient may benefit from GLP-1 agonists History of COPD: Continue with nebs, steroids, and antibiotics as patient appears to have a COPD exacerbation. Prophylaxis: Lovenox for DVT prophylaxis CODE STATUS: Full code Disposition: We will treat her multiple medical issues and she will be discharged when she is deemed clinically stable. Discharge Plan: Home with HH - Advance Directives Does patient have a Living Will: No Does patient have a Durable POA for Healthcare: No
--- NOTE | 2023-10-07 13:01 | P.PN ---
Date of Service: 10/07/23 Subjective Patient states she is doing much better. Clinical signs have improved. Minimal dyspnea on exertion. Patient has 3 L of home oxygen. Plan to discharge in the morning with home health. Will consult case management to arrange for jail facility placement. Physical Examination - Vital Signs Reviewed - Physical Exam General: Alert, Oriented x3, mild distress on exertion Respiratory: Diminished; end expiratory wheezing and basilar crackles Cardiovascular: Regular rate/rhythm, Normal S1 S2 Gastrointestinal: Soft and benign Musculoskeletal: No clubbing/cyanosis/swelling Neurological: No focal deficits Assessment and Plan -Assessment 1. Pneumonia with sepsis 2. Hypercapnic respiratory failure with severe hypoxemia 3. Heart failure with preserved ejection fraction 4. Type 2 diabetes 5. History of hypertension 6. History of COPD 7. History of hyperlipidemia 8. History of tobacco abuse 9. Morbid obesity -Plan Continue with treatment as mentioned below: 1. Sepsis: Present on admission. Clinically patient is doing much better. Continue on antibiotics. Cultures negative. 2. Respiratory failure with hypoxemia and hypercapnia: Wean off BiPAP. Continue with nebs, steroids, antibiotics 3. Suspected pneumonia: Per sepsis management and continue with antibiotics. Repeat chest x-ray stable 4. Diabetes type 2: Will continue on carb restricted diet and sliding scale insulin for glucose control. Will continue to monitor blood sugar before meals and at bedtime. Monitor blood sugars closely 5. Hypertension: Monitor vital signs per unit protocol and continue antihypertensive medications. 6. Hyperlipidemia: We will continue statin therapy. 7. Obesity: We will continue to encourage weight loss Patient may benefit from GLP-1 agonists 8. History of COPD: Continue with nebs, steroids, and antibiotics as patient appears to have a COPD exacerbation. Counseled regarding tobacco cessation Prophylaxis: Lovenox for DVT prophylaxis CODE STATUS: Full code Disposition: We will treat her multiple medical issues and she will be discharged when she is deemed clinically stable. Discharge Plan: Home with HH - Advance Directives Does patient have a Living Will: No Does patient have a Durable POA for Healthcare: No
[2023-10-07] MEDS ORDERED: FUROSEMIDE 20 MG/ 2ML VIAL IV ONE (13:21)
[2023-10-07] MEDS ORDERED: POTASSIUM CL SA 10 MEQ TAB PO ONE (13:22)
[2023-10-07] MEDS: ASPIRIN 81 MG CHEWABLE TABLET PO SCH (20:31)
[2023-10-08] MEDS: ALBUTEROL 2.5 MG/3 ML NEB SOL NEB SCH ×4 (01:47→20:22)
[2023-10-08] MEDS: IPRATROPIUM BROM 0.5MG/2.5ML NEB SCH ×4 (01:47→20:22)
[2023-10-08 06:19] LABS: Absolute Lymphocytes (CBC) 2.7 K/uL (0.7-4.9); Hematocrit 44.8 % (36.0-45.0); Lymphocytes % 20.3 % (15.3-44.8); MCV 97.6 fL (80-100); MPV 8.1 fL (7.6-11.3); Platelets 294 thou/uL (152-406); RBC Red Blood Cell Count 4.59 M/uL (3.86-4.86)
[2023-10-08 07:20] LABS: Albumin 3.1 g/dL (3.4-5.0); Magnesium 2.2 mg/dL (1.6-2.4); Potassium 4.5 mEq/L (3.5-5.1); Protein, Total 6.3 g/dL (6.4-8.2)
[2023-10-08] MEDS: INSULIN REGULAR (HUMAN) 100 UNIT/ML SQ SCH ×4 (07:30→19:32)
[2023-10-08] MEDS: predniSONE 10 MG TAB PO SCH ×2 (07:57→19:31)
[2023-10-08] MEDS: ENOXAPARIN 40 MG/0.4 ML SQ SCH (07:57)
--- NOTE | 2023-10-08 08:25 | RAD REPORT ---
EXAM DESCRIPTION: RAD - Chest Single View - 10/08/2023 5:48 am CLINICAL HISTORY: pneumonia COMPARISON: Chest Single View dated 10/03/2023; Chest Single View dated 09/27/2022; Chest Single Vie w dated 09/24/2022; Chest Pa And Lat (2 Views) dated 12/29/2016 FINDINGS: Lines: None. Lungs: Diffuse interstitial edema . Pleural: Bilateral pleural effusions, left greater than right. Cardiac: Cardiomegaly . Mediastinum: Within normal limits. Bones: No acute fractures. Other: None IMPRESSION: Pulmonary edema/ congestive heart failure. Bilateral effusions. Findings are similar to mildly worsened compared with 10/03/2023.
--- NOTE | 2023-10-08 14:33 | P.PN ---
Subjective Date of Service: 10/08/23 Chief Complaint: Respiratory failure, Pt is resting comfortably in bed. She is using 3L BNC. Pt denies any chest pain. Cardiology ordered NM stress test for tomorrow. No other complaints. Review of Systems General: Unremarkable Eyes: Unremarkable ENT: Unremarkable Respiratory: Unremarkable Cardiovascular: Unremarkable Gastrointestinal: Unremarkable Genitourinary: Unremarkable Musculoskeletal: Unremarkable Integumentary: Unremarkable Neurological: Unremarkable Physical Examination - Vital Signs Temperature: 97.1 F Blood Pressure: 134/67 Pulse: 56 Respirations: 15 Pulse Ox (%): 96 - Physical Exam General: In no apparent distress, Oriented x3, Cooperative HEENT: Atraumatic, Normocephalic, PERRLA Neck: Supple, 2+ carotid pulse no bruit, No Thyromegaly Respiratory: Clear to auscultation bilaterally, Normal air movement Cardiovascular: No edema, Normal pulses, Regular rate/rhythm, Normal S1 S2 Gastrointestinal: Normal bowel sounds, Soft and benign, Non-distended Musculoskeletal: No clubbing, No swelling Integumentary: No rashes, No breakdown Neurological: Normal gait, Normal speech, Sensation intact Assessment And Plan - Plan Sepsis 2/2 pneumonia: Will continue antibiotics. No growth on blood cx. Pt is improving. CXR is stable. Acute Respiratory failure with hypoxemia and hypercapnia: Will continue duonebs, steroids, antibiotics. Will wean off BIPAP Diabetes type 2: Will continue accuchek, SSI and ADA diet. Hypertension: Will continue home meds. Hyperlipidemia: statin Obesity: Pt was advised to lose weight. History of COPD: Continue with duonebs, steroids, and antibiotics as patient appears to have a COPD exacerbation. Pt was advised to quit smoking. DVT ppx: lovenox. CODE STATUS: Full code Disposition: Pending hospital course. Discharge Plan: Home with Discharge Plan: Home - Code Status/Comfort Care Code Status Assessed: Yes Code Status: Full Code
[2023-10-08] MEDS: ASPIRIN 81 MG CHEWABLE TABLET PO SCH (19:30)
[2023-10-08] MEDS: ACETAMINOPHEN 325 MG TABLET PO PRN (19:30)
[2023-10-09] MEDS: IPRATROPIUM BROM 0.5MG/2.5ML NEB SCH ×3 (02:37→14:06)
[2023-10-09] MEDS: ALBUTEROL 2.5 MG/3 ML NEB SOL NEB SCH ×3 (02:37→14:06)
[2023-10-09 07:10] LABS: Absolute Lymphocytes (CBC) 2.9 K/uL (0.7-4.9); Hematocrit 46.2 % (36.0-45.0); MCV 97.4 fL (80-100); Platelets 311 thou/uL (152-406); RBC Red Blood Cell Count 4.75 M/uL (3.86-4.86)
[2023-10-09 07:19] LABS: Potassium 4.6 mEq/L (3.5-5.1)
[2023-10-09] MEDS: INSULIN REGULAR (HUMAN) 100 UNIT/ML SQ SCH ×2 (07:30→12:47)
[2023-10-09] MEDS: ENOXAPARIN 40 MG/0.4 ML SQ SCH ×2 (09:00→10:08)
[2023-10-09] MEDS: predniSONE 10 MG TAB PO SCH ×2 (09:00→10:08)
[2023-10-09] MEDS ORDERED: REGADENOSON 0.4 MG/5 ML SYR IV ONE (09:03)
--- NOTE | 2023-10-09 09:59 | RAD REPORT ---
EXAM DESCRIPTION: NM - Rest Stress Cardiac Imaging - 10/09/2023 9:33 am CLINICAL HISTORY: CP Chest pain. COMPARISON: REST STRESS CARDIAC dated 05/19/2015 TECHNIQUE: The patient was administered approximately 10.3 mCi of Tc 99m Sestamibi prior to resting SPECT imaging of the heart. The patient was then administered approximately 31.1 mCi of Tc 99m Sestam ibi following exercise or pharmacologic stress. Multiplanar SPECT images were reviewed. FINDINGS: No stress induced ischemic defect is seen to suggest stress induced ischemia. No fixed def ect is seen to suggest hibernating myocardium or scarred myocardium. Small defects along the anterio r and inferolateral gudino on the rest images only are likely artifactual. The end diastolic volume is 151 ml, the end systolic volume is 84 ml, and the ejection fraction is 45 %. IMPRESSION: No evidence of stress induced ischemia. Left ventricular ejection fraction is slightly reduced, 45%.
[2023-10-09 11:38] VITALS: BP 108/52; TEMP 97.3
--- NOTE | 2023-10-09 12:27 | ECHO ---
HEIGHT: 5 ft 3 in WEIGHT: 298 lb 5 oz DATE OF STUDY: 10/08/[address]: Michelle Tavera MD 2-DIMENSIONAL: YES M.MODE: YES DOPPLER: YES COLOR FLOW: YES TDS: PORTABLE: YES DEFINITY: BUBBLE STUDY: DIAGNOSIS: CONGESTIVE HEART FAILURE CARDIAC HISTORY: CATHERIZATION: SURGERY: PROSTHETIC VALVE: PACEMAKER: MEASUREMENTS (cm) DIASTOLIC (NORMALS) SYSTOLIC (NORMALS) IVSd 1.0 (0.6-1.2) LA Diam 4.2 (1.9-4.0) LVEF 68% LVIDd 4.9 (3.5-5.7) LVIDs 3.0 (2.0-3.5) %FS 38% LVPWd 1.2 (0.6-1.2) Ao Diam 3.2 (2.0-3.7) 2 DIMENSIONAL ASSESSMENT: RIGHT ATRIUM: NORMAL LEFT ATRIUM: NORMAL RIGHT VENTRICLE: NORMAL LEFT VENTRICLE: NORMAL TRICUSPID VALVE: MILD TRICUSPID REGURGITATION MITRAL VALVE: MILD MITRAL REGURGITATION PULMONIC VALVE: MILD PULMONIC INSUFFICIENCY AORTIC VALVE: NORMAL PERICARDIAL EFFUSION: NONE AORTIC ROOT: NORMAL LEFT VENTRICULAR WALL MOTION: NORMAL DOPPLER/COLOR FLOW: SEE BELOW COMMENTS: 1. NORMAL LEFT VENTRICULAR EJECTION FRACTION 60-65% WITH NORMAL WALL MOTION 2. GRADE I DIASTOLIC DYSFUNCTION 3. MILD MITRAL REGURGITATION 4. MILD TRICUSPID REGURGITATION TECHNOLOGIST: JESI SAMS
--- NOTE | 2023-10-09 12:32 | TREADPHA ---
DX: ELEVATED TROPONIN Date of Study: 10/09/2023 Ht: 5' 3 " Wt: 298 lb 5 oz Consulting Physician: ТАТЬЯНА MEDICATIONS: TYLENOL, PROVENTIL, XANAX, ASPIRIN, LOVENOX, GLUCAGEN, NOVOLIN-R, ATROVENT, ZOFRAN, DELTASONE HISTORY: 58 YEAR OLD FEMALE WITH COMPLIANTS OF CHEST PAIN. HISTORY OF DIABETES MELLITUS, CHRONIC OBSTRUCTIVE PULMONARY DISEASE. NON SMOKER, NON DRINKER PHYSICIAL EXAMINATION: RESTING B.P.: 128/70 RESTING H.R.: 58 RESTING EKG: NORMAL SINUS RHYTHM PROTOCOL: PHARMALOGIC EXERCISE TIME: 3:30 B.P. AT PEAK STRESS: 115/61 IMPRESSION: LEXISCAN INJECTED FOLLOWED BY CARDIOLITE PER PROTOCOL. SEE NUCLEAR MEDICINE REPORT. NO SUPRAVENTRICULAR TACHYCARDIA, VENTRICULAR TACHYCARDIA, PREMATURE ATRIAL COMPLEXES, PREMATURE VENTRICULAR COMPLEXES. PATIENT REPORTS NO CHEST PAIN. NO ELECTROCARDIOGRAM WITH LEXISCAN.
--- NOTE | 2023-10-09 14:37 | P.DS ---
Admission Date: 10/04/23 Discharge Date: 10/09/23 Disposition: DC HOME/HOME HEALTH CARE Discharge Condition: GOOD Reason for Admission: Respiratory failure, Brief History of Present Illness: 58-year-old female patient with medical history significant for diabetes type 2, hypertension, hyperlipidemia, history of suspected COPD was evaluated for episode of sudden onset shortness of breath. Patient reported that she began to get short of breath suddenly without any precipitating event. No chest pain reported. No dizzy spells reported. She was initially evaluated in the ED and found to have respiratory failure with hypoxia and hypercapnia elevated troponin of 89 and she was started on BiPAP therapy. She was given IV steroid antibiotic therapy and was admitted for inpatient care. As part of her initial workup lactic acid was elevated at 3 and a repeat evaluate this was persistent. She was deemed to be having sepsis so she was pancultured. Imaging studies done to rule out PE was negative, DVT was negative and other chest findings were not particularly concerning for infectious process. There is elevated BNP raising concerns for CHF related issues. There was also mention of increased diameter of the pulmonary artery raising concerns for pulmonary hypertension. Hospital Course: Patient is a 58-year-old female who came into the hospital with pneumonia and sepsis. Patient with COPD exacerbation. Patient was treated with nebs, steroids, and antibiotics. Patient initially needed BiPAP support. Patient is clinically doing well. Cardiology did NM stress test due to elevated troponin on admission. The NM stress test was negative for stress induced ischemia. Patient will need to follow-up with pulmonary and cardiology as an outpatient. At this time, patient is stable for discharge with outpatient follow-up Vital Signs/Physical Exam: Temp Pulse Resp BP Pulse Ox 97.3 F 60 17 108/52 L 99 10/09/23 11:37 10/09/23 11:37 10/09/23 11:37 10/09/23 11:37 10/09/23 11:37 Laboratory Data at Discharge: WBC 12.60 thou/uL (4.3-10.9) H 10/09/23 06:42 Hgb 15.4 g/dL (12.0-15.0) H 10/09/23 06:42 Hct 46.2 % (36.0-45.0) H 10/09/23 06:42 Plt Count 311 thou/uL (152-406) 10/09/23 06:42 PT 11.5 SECONDS (9.5-12.5) 10/03/23 20:10 INR 1.05 10/03/23 20:10 Sodium 137 mEq/L (136-145) 10/09/23 06:42 Potassium 4.6 mEq/L (3.5-5.1) 10/09/23 06:42 BUN 16 mg/dL (7-18) 10/09/23 06:42 Creatinine 0.67 mg/dL (0.55-1.02) 10/09/23 06:42 Glucose 127 mg/dL (74-106) H 10/09/23 06:42 Magnesium 2.2 mg/dL (1.6-2.4) 10/08/23 05:51 Total Bilirubin 1.0 mg/dL (0.2-1.0) 10/08/23 05:51 AST 31 U/L (15-37) 10/08/23 05:51 ALT 117 U/L (13-56) H 10/08/23 05:51 Alkaline Phosphatase 70 U/L (45-117) 10/08/23 05:51 Home Medications: Potassium Chloride [Klor-Con M10] 20 meq PO DAILY 05/18/15 Albuterol Sulfate [Proair Hfa] 8.5 gm IH TID PRN #1 hfa.aer.[id number] 12/30/16 Fluticasone/Salmeterol [Advair 250/50 Diskus*] 1 puff IH BID #1 disk 12/30/16 Rosuvastatin Calcium 10 mg PO DAILY 10/22/19 Ipratropium/Albuterol Sulfate [Combivent Respimat 20-100 Mcg] 1 puff LEÓN PRN PRN 09/24/22 Meloxicam 15 mg PO 1X 09/24/22 Metformin HCl [Metformin HCl ER] 750 mg PO BID 09/24/22 Metoprolol Succinate 50 mg PO DAILY 09/24/22 Umeclidinium [place] [Incruse Ellipta] 62.5 mcg PRN PRN 09/24/22 Benzonatate [Tessalon Perle*] 100 mg PO TID PRN 7 Days #20 cap 09/28/22 Albuterol Neb [Proventil 0.083% Neb Soln] 2.5 mg NEB [id number] #60 amp 10/07/23 Ipratropium Neb [Atrovent*] 0.5 mg NEB [id number] #60 amp 10/07/23 predniSONE [Deltasone*] 10 mg PO BID #20 tab 10/07/23 New Medications: Ipratropium Neb [Atrovent*] 0.5 mg NEB [id number] #60 amp Albuterol Neb [Proventil 0.083% Neb Soln] 2.5 mg NEB [id number] #60 amp predniSONE [Deltasone*] 10 mg PO BID #20 tab Physician Discharge Instructions: -DC IV and DC home -Follow-up with PCP in 1 to 2 weeks -Follow-up with Pulmonary and cardiology in 1 to 2 weeks -Please call Dr. Tavera at [phone] if any questions regarding hospital stay -Please call nursing station at [phone] if any nursing or medication questions -Return to the emergency room if symptoms worsen Diet: AHA Activity: Fall precautions Followup: NONE,NONE [Primary Care Provider] -
[2023-10-09 18:12] VITALS: O2SAT 93
== END 2023-10-09 16:00 | disposition home health service (06) | DRG 871 ==
LOC: ER 19:13 → ERHOLD 10-04 09:06 → 4TH 10-04 15:15
PROVIDERS: ADMIT Internal Medicine Nephrology; ATTEND Hospitalist
PROC: 5A09557 Assistance with Respiratory Ventilation, Greater than 96 Consecutive Hours, Continuous Positive Airway Pressure (ICD-10-PCS; principal; 2023-10-05)
DX: A41.9 Sepsis, unspecified organism (principal); J18.9 Pneumonia, unspecified organism; J96.21 Acute and chronic respiratory failure with hypoxia; J96.22 Acute and chronic respiratory failure with hypercapnia; Z68.43 Body mass index [BMI] 50.0-59.9, adult; N39.0 Urinary tract infection, site not specified; J44.0 Chronic obstructive pulmonary disease with (acute) lower respiratory infection; I50.30 Unspecified diastolic (congestive) heart failure; J44.1 Chronic obstructive pulmonary disease with (acute) exacerbation; R65.20 Severe sepsis without septic shock; E66.01 Morbid (severe) obesity due to excess calories; I11.0 Hypertensive heart disease with heart failure; E11.9 Type 2 diabetes mellitus without complications; E78.5 Hyperlipidemia, unspecified; I27.20 Pulmonary hypertension, unspecified; F17.210 Nicotine dependence, cigarettes, uncomplicated; R77.8 Other specified abnormalities of plasma proteins; Z71.6 Tobacco abuse counseling; Z79.84 Long term (current) use of oral hypoglycemic drugs; Z79.52 Long term (current) use of systemic steroids; Z86.73 Personal history of transient ischemic attack (TIA), and cerebral infarction without residual deficits; Z11.52 Encounter for screening for COVID-19; Z99.81 Dependence on supplemental oxygen; Z79.899 Other long term (current) drug therapy
CPT/HCPCS: 36415; 71045; 71275; 74177; 76705; 78452; 80048; 80053; 81001; 82805; 82947; 83605; 83735; 83880; 84145; 84484; 85025; 85610; 87040; 87635; 87804; 93005; 93017; 93306; 93970; 94640; 94660; 94760; 96365; 96366; 96368; 96375; 97116; 97161; 97530; 99285; A9500; J1650; J1815; J1940; J2785; J2920; J2930; J7030; J7512; J7613; J7614; J7644; Q9967